=== PATIENT | female | born 1995 | race Two or more races ===

== ENCOUNTER 2023-02-08 15:02 | Outpatient (OUT) | payer BC, SELFPAY ==
--- NOTE | 2023-02-08 15:02 | PCN_ITS ---
PROCEDURE NOTE ? PROCEDURE DATE: ??02/08/2023 ? TO:? Joanne Benz, ANTIQUE REFINISHER ? PROCEDURE:? Patient presents today for a trigger point injection, right lumbar iliocostalis muscle ? PREOPERATIVE DIAGNOSIS:? Pain secondary to spasm of the right lumbar iliocostalis muscle. ? POSTOPERATIVE DIAGNOSIS:? Pain secondary to spasm of the right lumbar iliocostalis muscle. ? SOLUTION USED FOR INJECTION:? 2 mL of 2% lidocaine, 2 mL of 0.25% Marcaine and 10 mg of Kenalog, total of 5 mL, and 2 mL < > (please review 2 versus 3 mL as stated 2 here but 3 in the procedure below) used for the injection. ? IMMEDIATE COMPLICATIONS:? None. ? PROCEDURE:? After informed consent was obtained from the patient, placed in the prone position.? Skin overlying the area was prepped with alcohol.? A 25 gauge, 1 ?? needle was inserted into the substance of the right lumbar iliocostalis muscle at the L5 level.? Needle tip advanced until there was a twitch response, at which point we injected 3 mL < > (please verify as above) of solution.? No indication of intravascular or intraneural needle tip placement or injection.? Patient reports reduction in pain symptoms post procedurally.? ? MTDD
== END 2023-02-08 15:03 | disposition home or self-care (01) ==
LOC: PM 15:03
PROVIDERS: PCP Nurse Practitioner; Visit Provider Anesthesiology Pain Medicine
DX: M62.838 Other muscle spasm (principal)
CPT/HCPCS: 20552

== ENCOUNTER 2023-02-14 21:47 | Outpatient (REF) | payer BC, SELFPAY ==
[2023-02-21 17:07] LABS: Age Gdln ACOG Testing Note (.); IGP, rfx Aptima HPV ASCU Note (.)
== END 2023-02-14 21:48 | disposition home or self-care (01) ==
LOC: LAB 21:47
PROVIDERS: PCP Nurse Practitioner; Visit Provider Obstetrics & Gynecology
DX: Z01.419 Encounter for gynecological examination (general) (routine) without abnormal findings (principal)
CPT/HCPCS: G0145

== ENCOUNTER 2023-07-05 22:44 | Outpatient (OUT) | payer BC, SELFPAY ==
--- OUTSIDE RECORDS SUMMARY | 2023-07-05 22:47 | XMS_ITS | CCD ---
Author Organization [facility] Care Team Providers Care Captain Waiter Name Role Phone AICHHOLZ, SOFTWARE SALES REPRESENTATIVE JOANNE Attending Unavailable AICHHOLZ, SOFTWARE SALES REPRESENTATIVE JOANNE Consulting Unavailable AICHHOLZ, SOFTWARE SALES REPRESENTATIVE JOANNE Primary Care Unavailable AICHHOLZ, SOFTWARE SALES REPRESENTATIVE JOANNE Admitting Unavailable ANGIE, DR ANA LAURA Salgado Consulting Unavailable JOSE LUIS ., DR BLACK Admitting Unavailable AICHHOLZ, SOFTWARE SALES REPRESENTATIVE JOANNE Primary Care Unavailable JOSE LUIS ., DR BLACK Attending Unavailable JOSE LUIS ., DR BLACK Consulting Unavailable AICHHOLZ, SOFTWARE SALES REPRESENTATIVE JOANNE Primary Care Unavailable JOSE LUIS ., DR BLACK Admitting Unavailable JOSE LUIS ., DR BLACK Attending Unavailable JOSE LUIS ., DR BLACK Consulting Unavailable GIUSEPPE, DR MARCIA Rabago Admitting Unavailable WEST, DR MARCIA Rabago Attending Unavailable WEST, DR MARCIA Rabago Consulting Unavailable AICHHOLZ, SOFTWARE SALES REPRESENTATIVE JOANNE Primary Care Unavailable AICHHOLZ, SOFTWARE SALES REPRESENTATIVE JOANNE Primary Care Unavailable AICHHOLZ, SOFTWARE SALES REPRESENTATIVE JOANNE Admitting Unavailable AICHHOLZ, SOFTWARE SALES REPRESENTATIVE JOANNE Attending Unavailable AICHHOLZ, SOFTWARE SALES REPRESENTATIVE JOANNE Attending Unavailable AICHHOLZ, SOFTWARE SALES REPRESENTATIVE JOANNE Consulting Unavailable AICHHOLZ, SOFTWARE SALES REPRESENTATIVE JOANNE Primary Care Unavailable AICHHOLZ, SOFTWARE SALES REPRESENTATIVE JOANNE Admitting Unavailable ERA .DR TROY Admitting Unavailable AICHHOLZ, SOFTWARE SALES REPRESENTATIVE JOANNE Primary Care Unavailable GIRARD ., DR TROY Lopez Attending Unavailable GIRARD ., DR TROY Lopez Consulting Unavailable AICHHOLZ, SOFTWARE SALES REPRESENTATIVE JOANNE Primary Care Unavailable VILMA MORENO Consulting Unavailable ERA ., DR TROY Lopez Admitting Unavailable GIRARD ., DR TROY Lopez Attending Unavailable LAKSHMIPATHY .ALISHA Consulting [place] vailable AICHHOLZ, SOFTWARE SALES REPRESENTATIVE JOANNE Primary Care Unavailable GIRARD ., DR TROY Lopez Admitting Unavailable GIRARD ., DR TROY Lopez Attending Unavailable NENITA MAN Attending Unavailable NENITA MAN Attending Unavailable NENITA MAN Attending Unavailable NENITA MAN Attending Unavailable WAYNE AMAYA Attending Unavailable Problems Active Problems Problem Classification Problem Date Documented Da te Episodic/Chronic Spondylosis; intervertebral disc disorders; other back problems (5 sources) Spondylosis without myelopathy or radiculopathy, lumbar region; Translations: [SPONDYLS W/O MYELO-/RADICULOP LUMB] Onset: 02-05-2022 Chronic Spondylosis; intervertebral disc disorders; other back problems (5 sources) Muscle spasm of back; Translations: [MUSCLE SPASM OF BACK] Onset: 02-02-2022 Episodic Unclassified (4 sources) LOW BACK PAIN, UNSPECIFIED; Translations: [LOW BACK PAIN, UNSPECIFIED] Onset: 01-27-2022 Past or Other Problems Problem Classification Problem Date Documented Date Episodic/Chronic Cancer of cervix (4 sources) Low grade squamous intraepithelial lesion on cytologic smear of cervix (LGSIL); Translations: [LGSIL ON CYTOLOGIC SMEAR OF CERVIX] Onset: 04-26-2022 Episodic Immunizations and screening for infectious disease (1 source) Encounter for screening for human papillomavirus (HPV); Translations: [ENC SCREENING HUMAN PAPILLOMAVIRUS] Onset: 04-27-2022 Episodic Other connective tissue disease (1 source) Abnormal posture; Translations: [ABNORMAL POSTURE] Onset: 12-08-2021 Episodic Other non-traumatic joint disorders (1 source) Pain in right knee; Translations: [PAIN IN RIGHT KNEE] Onset: 12-08-2021 Episodic Other screening for suspected conditions (not mental disorders or infectious disease) (5 sources) Encounter for screening for malignant neoplasm of cervix; Translations: [ENC SCREENING MALIG NEOPLASM CERV] Onset: 10-20-2021 Episodic Unclassified (1 source) LOW BACK PAIN, UNSPECIFIED; Translations: [LOW BACK PAIN, UNSPECIFIED] Onset: 01-14-2022 Results Test Name Value Interpretation Reference Range Facility CBC AUTO DIFFon 08-02-2022 BASO # 0.1 103/ul Normal 0.0-0.1 [facility] Comment on above: Performed By: #### C BC #### [facility] [address] [address] [address] Merrick Alva Basophils/100 WBC (Bld) 0.4 % Normal 0.2-2.0 [facility] Comment on above: Performed By: #### C BC #### [facility] [address] [address] [address] Merrick Alva EO # 0.2 103/ul Normal 0.0-0.7 [facility] Comment on above: Performed By: #### C BC #### [facility] [address] [place] [address] Dr. Merrick Alva Eosinophils/100 WBC (Bld) 1.1 % Normal 0.9-7.0 [facility] Comment on above: Performed By: #### C BC #### [facility] [address] [place] [address] Dr. Merrick Alva Erythrocyte distribution width (RBC) [Ratio] 13.4 % Normal 11.0-15.0 [facility] Comment on above: Performed By: #### C BC #### [facility] [address] [place] [address] Dr. Merrick Alva Hematocrit (Bld) [Volume fraction] 38.2 % Normal 36.0-48.0 [facility] Comment on above: Performed By: #### C BC #### [facility] [address] [place] [address] Dr. Merrick Alva Hemoglobin (Bld) [Mass/Vol] 13.1 g/dL Normal 12.0-16.0 [facility] Comment on above: Performed By: #### C BC #### [facility] [address] [place] [address] Dr. Merrick Alva IG # 0.03 10e3/ul Normal 0.00-0.03 [facility] Comment on above: Performed By: #### C BC #### [facility] [address] [place] [address] Dr. Merrick Alva IG % 0.2 % Normal 0.0-0.5 [facility] Comment on above: Performed By: #### C BC #### [facility] [address] [place] [address] Dr. Merrick Alva LYMPH # 5.6 103/ul Critically high 1.2-3.8 [facility] Comment on above: Performed By: #### C BC #### [facility] [address] [place] [address] Dr. Merrick Alva Lymphocytes/100 WBC (Bld) 42.9 % Normal 20.5-60.0 [facility] Comment on above: Performed By: #### C BC #### [facility] [address] [place] [address] Dr. Merrick Alva MANUAL DIFF REQ NO Normal [facility] Comment on above: Performed By: #### C BC #### [facility] [address] [place] [address] Dr. Merrick Alva MCH (RBC) [Entitic mass] 29.6 pg Normal 26.7-34.0 [facility] Comment on above: Performed By: #### C BC #### [facility] [address] [place] [address] Dr. Merrick Alva MCHC (RBC) [Mass/Vol] 34.3 g/dL Normal 29.9-35.2 [facility] Comment on above: Performed By: #### C BC #### [facility] [address] [place] [address] Dr. Merrick Alva MCV (RBC) [Entitic vol] 86.2 fL Normal 81.0-99.0 [facility] Comment on above: Performed By: #### C BC #### [facility] [address] [place] [address] Dr. Merrick Alva MONO # 0.8 103/ul Normal 0.3-0.8 [facility] Comment on above: Performed By: #### C BC #### [facility] [address] [place] [address] Dr. Merrick Alva Monocytes/100 WBC (Bld) 6.1 % Normal 1.7-12.0 [facility] Comment on above: Performed By: #### C BC #### [facility] [address] [place] [address] Dr. Merrick Alva NEUT # 6.4 103/ul Normal 1.4-6.5 [facility] Comment on above: Performed By: #### C BC #### [facility] [address] [place] [address] Dr. Merrick Alva Neutrophils/100 WBC (Bld) 49.3 % Normal 43.0-75.0 [facility] Comment on above: Performed By: #### C BC #### [facility] [address] [place] [address] Dr. Merrick Alva Platelet mean volume (Bld) [Entitic vol] 10.3 fL Normal 9.5-13.5 [facility] Comment on above: Performed By: #### C BC #### [facility] [address] [place] [address] Dr. Merrick Alva PLT 288 103/ul Normal 150-450 [facility] Comment on above: Performed By: #### C BC #### [facility] [address] [place] [address] Dr. Merrick Alva RBC 4.43 106/ul Normal 4.20-5.40 [facility] Comment on above: Performed By: #### C BC #### [facility] [address] [place] [address] Dr. Merrick Alva WBC 13.1 103/ul Critically high 4.0-11.0 [facility] Comment on above: Performed By: #### C BC #### [facility] [address] [place] [address] Dr. Merrick Alva GLYCOHEMOGLOBIN A1Con 2022 ADA RECOMMENDATION SEE BELOW Normal [facility] Comment on above: Result Comment: ADA RECOMMENDED LIMIT 4.0 - 6.0 ADA THERAPEUTIC TARGET < 7.0 ACTION SUGGESTED > 7.0 Performed By: #### A 1C #### [facility] [address] [place] [address] Dr. Merrick Alva Glucose [Mass/Vol] 111 mg/dL Normal [facility] Comment on above: Performed By: #### A 1C #### [facility] [address] [place] [address] Dr. Merrick Alva HbA1c (Bld) [Mass fraction] 5.5 % Normal 4.5-6.2 [facility] Comment on above: Performed By: #### A 1C #### [facility] [address] [place] [address] Dr. Merrick Alva LIPID PROFILEon 08-02-2022 CHOL-HDL RATIO NORM SEE BELOW Normal [facility] Comment on above: Result Comment: 3.3 - 4.4 LOW RISK 4.4 - 7.1 AVERAGE RISK 7.1 - 11.0 MODERATE RISK >11.0 HIGH RISK Performed By: #### L IPID, TSH, CMP #### [facility] [address] [place] [address] Dr. Merrick Alva Cholesterol [Mass/Vol] 153 mg/dL Normal <=200 [facility] Comment on above: Performed By: #### L IPID, TSH, CMP #### [facility] [address] [place] [address] Dr. Merrick Alva Cholesterol in HDL [Mass/Vol] 41 mg/dL Normal 40-60 [facility] Comment on above: Performed By: #### L IPID, TSH, CMP #### [facility] [address] [place] [address] Dr. Merrick Alva Cholesterol in LDL [Mass/Vol] 92.4 mg/dL Normal [facility] Comment on above: Performed By: #### L IPID, TSH, CMP #### [facility] [address] [place] [address] Dr. Merrick Alva Cholesterol.total/Ch olesterol in HDL [Mass ratio] 3.7 {ratio} Normal [facility] Comment on above: Performed By: #### L IPID, TSH, CMP #### [facility] [address] [place] [address] Dr. Merrick Alva HDL NORMAL > or = 60 mg/dl - LO W CARDIOVASCULAR RISK <40 mg/dl - HIGH CARDIOVASCULAR RISK Normal [facility] Comment on above: Performed By: #### L IPID, TSH, CMP #### [facility] [address] [place] [address] Dr. Merrick Alva LDL CALC NORMAL SEE BELOW Normal [facility] Comment on above: Result Comment: <100 mg/dl OPTIMAL 100 - 129 mg/dl NEAR OR ABOVE OPTIMAL 130 - 159 mg/dl BORDERLINE HIGH 160 - 189 mg/dl HIGH >190 mg/dl VERY HIGH Performed By: #### L IPID, TSH, CMP #### [facility] [address] [address] [address] Merrick Alva Triglyceride [Mass/Vol] 98 mg/dL Normal <=150 [facility] Comment on above: Performed By: #### L IPID, TSH, CMP #### [facility] [address] [address] [address] Merrick Alva VLDL CALC 19.6 mg/dL Normal [facility] Comment on above: Performed By: #### L IPID, TSH, CMP #### [facility] [address] [address] [address] Merrick Alva PROF 14(COMP METB)on 023 Albumin [Mass/Vol] 3.7 g/dL Normal 3.4-5.0 [facility] Comment on above: Performed By: #### L IPID, TSH, CMP #### [facility] [address] [address] [address] Merrick Alva Albumin/Globulin [Mass ratio] 0.9 {ratio} Normal [facility] Comment on above: Performed By: #### L IPID, TSH, CMP #### [facility] [address] [place] [address] Dr. Merrick Alva ALP [Catalytic activity/Vol] 98 U/L Normal 46-116 [facility] Comment on above: Performed By: #### L IPID, TSH, CMP #### [facility] [address] [address] [address] Merrick Alva ALT [Catalytic activity/Vol] 37 U/L Normal 14-59 [facility] Comment on above: Performed By: #### L IPID, TSH, CMP #### [facility] [address] [place] [address] Dr. Merrick Alva Anion gap [Moles/Vol] 12.1 mmol/L Normal [facility] Comment on above: Performed By: #### L IPID, TSH, CMP #### [facility] [address] [place] [address] Dr. Merrick Alva AST [Catalytic activity/Vol] 22 U/L Normal 15-37 [facility] Comment on above: Performed By: #### L IPID, TSH, CMP #### [facility] [address] [place] [address] Dr. Merrick Alva Bilirubin [Mass/Vol] 0.5 mg/dL Normal 0.2-1.0 [facility] Comment on above: Performed By: #### L IPID, TSH, CMP #### [facility] [address] [address] [address] Merrick Alva Calcium [Mass/Vol] 8.9 mg/dL Normal 8.5-10.1 [facility] Comment on above: Performed By: #### L IPID, TSH, CMP #### [facility] [address] [place] [address] Dr. Merrick Alva Chloride [Moles/Vol] 105 mmol/L Normal 98-107 [facility] Comment on above: Performed By: #### L IPID, TSH, CMP #### [facility] [address] [place] [address] Dr. Merrick Alva CO2 [Moles/Vol] 27.7 mmol/L Normal 21.0-32.0 [facility] Comment on above: Performed By: #### L IPID, TSH, CMP #### [facility] [address] [place] [address] Dr. Merrick Alva Creatinine [Mass/Vol] 0.76 mg/dL Normal 0.55-1.02 [facility] Comment on above: Performed By: #### L IPID, TSH, CMP #### [facility] [address] [place] [address] Dr. Merrick Alva EGFR-AF ARGENTINE >60 Normal >=60 [facility] Comment on above: Performed By: #### L IPID, TSH, CMP #### [facility] [address] [place] [address] Dr. Merrick Alva EGFR-NON AF ARGENTINE >60 Normal >=60 [facility] Comment on above: Performed By: #### L IPID, TSH, CMP #### [facility] [address] [address] [address] Merrick Alva Globulin (S) [Mass/Vol] 4.1 g/dL Normal [facility] Comment on above: Performed By: #### L IPID, TSH, CMP #### [facility] [address] [place] [address] Dr. Merrick Alva Glucose [Mass/Vol] 87 mg/dL Normal 74-106 [facility] Comment on above: Performed By: #### L IPID, TSH, CMP #### [facility] [address] [place] [address] Dr. Merrick Alva Potassium [Moles/Vol] 3.8 mmol/L Normal 3.5-5.1 [facility] Comment on above: Performed By: #### L IPID, TSH, CMP #### [facility] [address] [place] [address] Dr. Merrick Alva Protein [Mass/Vol] 7.8 g/dL Normal 6.4-8.2 [facility] Comment on above: Performed By: #### L IPID, TSH, CMP #### [facility] [address] [place] [address] Dr. Merrick Alva Sodium [Moles/Vol] 141 mmol/L Normal 136-145 [facility] Comment on above: Performed By: #### L IPID, TSH, CMP #### [facility] [address] [place] [address] Dr. Merrick Alva Urea nitrogen [Mass/Vol] 11.0 mg/dL Normal 7.0-18.0 [facility] Comment on above: Performed By: #### L IPID, TSH, CMP #### [facility] [address] [place] [address] Dr. Merrick Alva Urea nitrogen/Creatinine [Mass ratio] 14.5 mg/mg Normal [facility] Comment on above: Performed By: #### L IPID, TSH, CMP #### [facility] [address] [place] [address] Dr. Merrick Alva TSHon 08-02-2022 TSH 1.453 uIU/mL Normal 0.358-3.740 [facility] Comment on above: Performed By: #### L IPID, TSH, CMP #### [facility] [address] [place], [place] [address] Dr. Merrick Alva Pap IG, rfx Aptima HPV, rfx 16/18,45on 05-04-2022 . . Normal [facility] Comment on above: Result Comment: Perf ormed at: WB Performed By: #### P APHR2A ####[facility] [id number] [id number] Alva DIAGNOSIS: Comment Abnormal [facility] Comment on above: Result Comment: EPIT HELIAL CELL ABNORMALITY. ATYPICAL SQUAMOUS CELLS OF UNDETERMINED SIGNIFICANCE (ASC-US). PREDOMINANCE OF COCCOBACILLI CONSISTENT WITH SHIFT IN VAGINAL POLLY IS PRESENT. Performed at: WB Performed By: #### P APHR2A ####[facility] [address] [address]DrAna Alva Electronically signed by: Comment Normal [facility] Comment on above: Result Comment: Jammie Wahl MD, Pathologist Performed at: WB Performed By: #### P APHR2A ####[facility] [address] [id number] Alva HPV Aptima Negative Normal Negative [facility] Comment on above: Result Comment: This nucleic acid amplification test detects fourteen high-risk HPV types (16,18,31,33,35,39,45,51,52,56,58,59,66,68) without differentiation. Performed at: =G Performed By: #### P APHR2A ####[facility] [address] [id number] Alva HPV Genotype Reflex Comment Normal [facility] Comment on above: Result Comment: Crit eria not met, HPV Genotype not performed. Performed at: WB Performed By: #### P APHR2A ####[facility] [address] [id number] Alva Methodology: Comment Normal [facility] Comment on above: Result Comment: This liquid based ThinPrep(R) pap test was screened with the use of an image guided system. Performed at: WB Performed By: #### P APHR2A ####[facility] [address] [address]Dr. Merrick Alva Note: Comment Normal [facility] Comment on above: Result Comment: The Pap smear is a screening test designed to aid in the detection of premalignant and malignant conditions of the uterine cervix. It is not a diagnostic procedure and should not be used as the sole means of detecting cervical cancer. Both false-positive and false-negative reports do occur. . Performed at: WB Performed By: #### P APHR2A ####[facility] [address] [address]Dr. Merrick Alva Pathologist Provided ICD10 Comment [facility] Comment on above: Result Comment: R87. 610, R87.5 Performed at: WB Performed By: #### P APHR2A ####[facility] [address] [place], [place] [address]Dr. Merrick Alva Performed by: Comment Normal [facility] Comment on above: Result Comment: Jay Jay Flores, Service Provider (ASCP) Performed at: WB Performed By: #### P APHR2A ####[facility] [address] [place], [place] [address]Dr. Merrick Alva Recommendation: Comment Abnormal [facility] Comment on above: Result Comment: Sugg est follow up as clinically appropriate. Performed at: WB Performed By: #### P APHR2A ####[facility] [address] [place], [place] [address]DrAna Alva Specimen adequacy: Comment Normal [facility] Comment on above: Result Comment: Sati sfactory for evaluation. Endocervical and/or squamous metaplastic cells (endocervical component) are present. Performed at: WB Performed By: #### P APHR2A ####[facility] [address] [place], [place] [address]Dr. Merrick Alva XR LSPINE 2_3 VIEWSon 2021 XR LSPINE 2_3 VIEWS EXAMINATION: XR LSPINE 2_3 VIEWS HISTORY: Low back pain ; chronic low back pain radiating to right leg COMPARISON: No relevant comparison available. FINDINGS: BONES: No significant spondylosis, scoliosis, fracture, or visible bony lesion. DISC SPACES: No significant disc height narrowing, subluxation, or endplate abnormality. PARASPINOUS: Negative. No paraspinous abnormality is seen. OTHER: Negative. IMPRESSION: 1. Normal examination. Electronically authenticated by: ANA LAURA ADAMS Date: 2022-01-14 07:25 Normal [facility] PAP ACOG PANEL 2: 19 to 27on 10-26-2021 . . Normal [facility] Comment on above: Performed By: #### [id number] #### [facility] [address] [address] [address] Merrick Alva Age Gdln ACOG Testing - Normal [facility] Comment on above: Performed By: #### [id number] #### [facility] [address] [place] [address] Dr. Merrick Alva DIAGNOSIS: Comment Abnormal [facility] Comment on above: Result Comment: EPIT HELIAL CELL ABNORMALITY. LOW GRADE SQUAMOUS INTRAEPITHELIAL LESION (LSIL). Performed By: #### [id number] #### [facility] [address] [address] [address] Merrick Alva Electronically signed by: Comment Normal [facility] Comment on above: Result Comment: Shira Blandon MD, Pathologist Performed By: #### [id number] #### [facility] [address] [place] [address] Dr. Merrick Alva Methodology: Comment Normal [facility] Comment on above: Result Comment: This liquid based ThinPrep(R) pap test was screened with the use of an image guided system. Performed By: #### 4 [id number] #### [facility] [address] [address] [address] Merrick Alva Note: Comment Normal [facility] Comment on above: Result Comment: The Pap smear is a screening test designed to aid in the detection of premalignant and malignant conditions of the uterine cervix. It is not a diagnostic procedure and should not be used as the sole means of detecting cervical cancer. Both false-positive and false-negative reports do occur. . Performed By: #### [id number] #### [facility] [address] [address] [address] Merrick Alva Pathologist Provided ICD10 Comment Normal [facility] Comment on above: Result Comment: R87. 612 Performed By: #### [id number] #### [facility] [address] [address] [address] Merrick Alva Performed by: Comment Normal [facility] Comment on above: Result Comment: Alma Oden, Service Provider (ASCP) Performed By: #### [id number] #### [facility] [address] [address] [address] Merrick Alva Reflex Criteria: Comment Normal [facility] Comment on above: Result Comment: The HPV DNA reflex criteria were not met with this specimen result therefore, no HPV testing was performed. . Performed By: #### 4 [id number] #### [facility] [address] [place] [address] Dr. Merrick Alva Specimen adequacy: Comment Normal [facility] Comment on above: Result Comment: Sati sfactory for evaluation. Endocervical and/or squamous metaplastic cells (endocervical component) are present. Performed By: #### [id number] #### [facility] [address] [address] [address] Merrick Alva RUBELLAon 03-28-2018 RUBELLA 1.85 Normal [facility] Comment on above: Result Comment: NORM AL RANGES: < OR = 0.9O NEGATIVE ; NO DETECTABLE IgG ANTIBODY TO RUBELLA 0.91 - 1.09 EQUIVOCAL; REPEAT TESTING SUGGESTED > OR = 1.10 POSITIVE ; INDICATES PRESENCE OF DETECTABLE IgG ANTIBODY TO RUBELLA VIRUS Performed By: #### 1 [id number] #### [facility] [address] TB QUANTIFERON PLUSon 2018 MITOGEN MINUS NIL >10.00 Normal [facility] Comment on above: Performed By: #### 3 [id number] #### [facility] [address] [place] [address], [facility] NIL 0.14 IU/mL Normal [facility] Comment on above: Performed By: #### 3 [id number] #### [facility] [address] [facility] [place] [address], [facility] TB QUANTIFERON Negative Normal NEGATIVE [facility] Comment on above: Result Comment: [place]rbano tiferon TB Gold Interpretation (IU/mL): NEGATIVE: M. tuberculosis infection not likely. Nil: <=8.0 TB1 Antigen minus Nil (YK2OU-SJF): <0.35 OR >=0.35; and <25% of Nil value. TB2 Antigen minus Nil (SP7KL-YXE): <0.35 OR >=0.35; and <25% of Nil value. Mitogen minus Nil (CAITLYN-NIL): >=0.50 NOTE: Diagnosing or excluding tuberculosis disease, and assessing the probability of LTBI, requires a combination of epidemiological, historical, medical, and diagnostic findings that should be taken into account when interpreting QuantiFERON (TM)-TB Gold results. See general guidance on the diagnosis and treatment of TB disease and LTBI (https://www.cdc.gov/tb/publications/guidlines/default.htm Performed By: #### 3 [id number] #### [facility] [address] [facility] [place] [address], [facility] TB1 AG 0.13 IU/mL Normal [facility] Comment on above: Performed By: #### 3 [id number] #### [facility] [address] [place] [address], [facility] TB1 AG MINUS NIL -0.01 IU/mL Normal [facility] Comment on above: Performed By: #### 3 [id number] #### [facility] [address] [facility] [place] [address], [place] TB2 AG 0.19 IU/mL Normal [facility] Comment on above: Performed By: #### 3 [id number] #### [facility] [address] [place] [address], [place] TB2 AG MINUS NIL 0.05 IU/mL Normal [facility] Comment on above: Performed By: #### 3 [id number] #### [facility] [address] [place] [address], [facility] Encounters Encounter Date Encounter Type Care Provider Facility Start: 06-28-2023 End: 06-28-2023 ambulatory NENITA MAGDA Not Available Start: 05-26-2023 End: 05-26-2023 ambulatory NENITA MAGDA Not Available Start: 04-13-2023 End: 04-13-2023 ambulatory NENITA MAGDA Not Available Start: 03-15-2023 End: 03-15-2023 ambulatory NENITA MAGDA Not Available Start: 02-14-2023 End: 02-14-2023 ambulatory WAYNE AMAYA Not Available Start: 08-02-2022 End: 08-03-2022 ambulatory LISBETH BENZ Facility:[facility] Start: 07-12-2022 End: 07-13-[address] MARCIA CHIN Facility:[facility] Start: 05-18-2022 End: 05-19-2022 ambulatory SOFTWARE SALES REPRESENTATIVE JOANNEGerald BENZ Facility:[facility] Start: 04-26-2022 End: 04-26-2022 ambulatory SOFTWARE SALES REPRESENTATIVE JOANNE JOSÉ Facility:[facility] Start: 03-09-2022 ambulatory LISBETH BENZ Facil ity:[facility] Start: 02-02-2022 End: 02-03-[address] TROY GIRARD . Facility:[facility] Start: 01-14-2022 End: 01-15-2022 ambulatory LISBETH LANEA JOSÉ Facility:[facility] Start: 12-07-2021 End: 12-22-2021 ambulatory SOFTWARE SALES REPRESENTATIVE JOANNE JOSÉ Facility:[facility] Start: 10-20-2021 End: 10-20-[address] WAYNE AMAYA . Facility:[facility] Payers Date Payer Category Payer Unknown [id number] 2019 Unknown 1993 Unknown [id number] 2.16.84 [id number] 1993 Unknown [id number] 2.16.84 [id number] 1993 Unknown [id number] 2.16.84 0.1.455959.3.579.2.593 1993 Unknown [id number] 2.16.84 0.1.116281.3.579.2.593 1993 Unknown [id number] 2.16.84 0.1.669872.3.579.2.593 1993 Unknown [id number] 2.16.84 0.1.496655.3.579.2.593 1993 Unknown [id number] 2.16.84 0.1.811917.3.579.2.593 1993 Unknown [id number] 2.16.84 0.1.746063.3.579.2.593 1993 Unknown [id number] 2.16.84 0.1.564894.3.579.2.1259 1993 Unknown [id number] 2.16.84 0.1.457586.3.579.2.1259 1993 Unknown [id number] 2.16.84 0.1.689999.3.579.2.1259 1993 Unknown [id number] 2.16.840 .1.480579.3.579.2.1259 1993 Unknown [id number] 2.16.840 .1.262785.3.579.2.1259 1959 Self-pay [id number] 1959 Unknown [id number] 1959 Unknown [id number] 1959 Unknown [id number] Unknown [id number] 2.16.84 0.1.296037.3.579.2.593 Consultation note 05-18-2022 Note Date & Type Note Facility 05-18-2022 Note CONSULTATION PROCEDURE DATE: 05/18/2022 PROCEDURE: Left lumbar iliocostalis trigger point injection. PREOPERATIVE DIAGNOSIS: Pain secondary to lumbar spondylosis, complicated by myofascial spasm along the lumbar iliocostalis. POSTOPERATIVE DIAGNOSIS: Pain secondary to lumbar spondylosis, complicated by myofascial spasm along the lumbar iliocostalis. SOLUTION USED FOR INJECTION: 2 mL of 2% lidocaine, 2 mL of 0.25% Marcaine and Kenalog 10 mg, total of 5 mL and 2 mL were used for injection at the site. IMMEDIATE COMPLICATIONS: None. PROCEDURE: After informed consent was obtained from the patient, placed in the prone position. The skin overlying the area was prepped with alcohol. A 25 gauge, 1.5 needle was inserted and directed towards the belly of the left lumbar iliocostalis muscle and approximately 3 cm from the midline, at the level of the L4 spinous process. After encountering the belly of the muscle and having a positive twitch response, no indication of intravascular or intraneural needle tip placement. 2 mL of solution was injected. Post-op, needle was removed and reports reduction of pain symptoms. She was discharged home after meeting criteria, and she is to follow up with our office by telephone in one week's time. [facility] Consultation note 02-02-2022 Note Date & Type Note Facility 02-02-2022 Note CONSULTATION CONSULTATION DATE: 02/02/2022 CHIEF COMPLAINT: Chronic low back pain. HISTORY OF PRESENT ILLNESS: This is a very pleasant, 26-year-old female who was referred to us by Joanne Benz. The patient was lifting and exercising approximately a year ago, when she hurt her low back, on the right hand side especially. The patient describes the pain along her right hip and the posterior aspect of her thigh. She rates the pain as 2/10, a sharp pain. Twisting, standing too long, walking too long aggravate the patient's pain. Sitting too long aggravates the pain. Stretching mitigates the patient's pain. The patient has attended chiropractic treatment; one every three months, the last one being in the spring. The patient has also attended physical therapy for the last month. The patient takes tizanidine 4 mg on a p.r.n. basis. She has been instructed to decrease the dosage on this. She takes [id number] NSAIDs along with naproxen 500 mg on a p.r.n. basis. The patient's PAST MEDICAL HISTORY / SURGICAL HISTORY / REVIEW OF SYSTEMS are noted on the chart, along with the MEDICATION LIST / ALLERGIES and an X-RAY of the lumbar spine which was reviewed in the office today with the patient. PHYSICAL EXAM: Upon physical examination, this is a pleasant, cooperative female, who does not appear to be in any acute distress. VITAL SIGNS: Stable at 105/70 with a heart rate of 74. At a height of 5', the patient weighs 76 kg. HEAD: Atraumatic. NECK: Non-guarded. HEART: No orthopnea. LUNGS: No shortness of breath. ABDOMEN: Soft, non-distended. BACK: Well maintained lumbar lordosis. Extension, compression, direct palpation along the L4-5, L5-S1 facet aggravate and reproduce the patient's pain symptomatology concordant with facet arthropathy, lumbar spondylosis. On the x-rays, we can also see early inflammatory changes on the left hand side. The patient does have some lumbar spasming. EXTREMITIES: No pedal edema. MUSCULOSKELETAL: Intact at 5/5. NEUROLOGICALLY: The patient is intact. PSYCHIATRICALLY: Affect is appropriate. DIAGNOSIS: Current diagnosis is low back pain, lumbar spasm, lumbar spondylosis, early degenerative facet changes noted. PLAN: Education was done with regards to the patient's pain. Heat rub to the low back, inversion table. The patient will receive trigger point in her lumbar spine today along the right hand side. The patient understands and would like to proceed. [facility] Consultation note 02-02-2022 Note Date & Type Note Facility 02-02-2022 Note CONSULTATION PROCEDURE DATE: 02/02/2022 PREOPERATIVE DIAGNOSIS: Lumbar paravertebral spasm. POSTOPERATIVE DIAGNOSIS: Lumbar paravertebral spasm. PROCEDURE: Lumbar trigger point injection x2. Subsequent to obtaining informed consent, the patient was placed in the prone position. Alcohol prep was used to sterilize the site. A 25 gauge needle was advanced and it comes to rest on the right hand side along the trigger zones. Negative aspiration. Marcaine 0.125% along with Kenalog 10 mg x2 is injected to each site; a total volume of 1.5 cc. Negative heme. The patient tolerates the procedure well without any overt complication, will be followed up in the office. [facility] Summary Purpose Family History No Family History Records FoundNo Family History Records FoundNo Family History Records Found Advance Directives No Advanced Directives Records FoundNo Advanced Directives Records FoundNo Advanced Directives Records Found Additional Source Comments INFORMATION SOURCE (unrecogn ized section and content) DATE CREATED AUTHOR 12/24/2018 [facility] DATE CREATED AUTHOR AUTHOR'S ORGANIZ ATION 08/03/2022 [facility] DATE CREATED AUTHOR AUTHOR'S ORGANIZ ATION 06/29/2023 [facility] FOR RECORDS PERTAINING TO PATIENTS WHO ARE OR HAVE BEEN ENROLLED IN A CHEMICAL DEPENDENCY/SUBSTANCEABUSE PROGRAM, SOME INFORMATION MAY BE OMITTED. This clinical summary was aggregated from multiple sources. Caution should be exercised in using it in the provision of clinical care. This summary normalizes information from multiple sources, and as a consequence, information in this document may materially change the coding, format and clinical context of patient data. In addition, data may be omitted in some cases. CLINICAL DECISIONS SHOULD BE BASED ON THE PRIMARY CLINICAL RECORDS. [facility] [employer] provides no warranty or guarantee of the accuracy or completeness of information in this document.
[2023-07-05 23:44] LABS: HCG Quantitative 16610 mIU/mL
== END 2023-07-05 22:45 | disposition home or self-care (01) ==
LOC: LAB 22:44
PROVIDERS: PCP Obstetrics & Gynecology; Visit Provider Obstetrics & Gynecology
DX: N92.6 Irregular menstruation, unspecified (principal)
CPT/HCPCS: 36415; 84702

== ENCOUNTER 2023-07-08 06:05 | Outpatient (OUT) | payer BC, SELFPAY ==
--- OUTSIDE RECORDS SUMMARY | 2023-07-08 06:08 | XMS_ITS | CCD ---
Author Organization [facility] Care Team Providers Care Jig And Fixture Builder Name Role Phone AICHHOLZ, ENGRAVER LETTERING JOANNE Attending Unavailable AICHHOLZ, ENGRAVER LETTERING JOANNE Consulting Unavailable AICHHOLZ, ENGRAVER LETTERING JOANNE Primary Care Unavailable AICHHOLZ, ENGRAVER LETTERING JOANNE Admitting Unavailable ANGIE, DR ANA LAURA Salgado Consulting Unavailable JOSE LUIS ., DR BLACK Admitting Unavailable AICHHOLZ, ENGRAVER LETTERING JOANNE Primary Care Unavailable JOSE LUIS ., DR BLACK Attending Unavailable JOSE LUIS ., DR BLACK Consulting Unavailable AICHHOLZ, ENGRAVER LETTERING JOANNE Primary Care Unavailable JOSE LUIS ., DR BLACK Admitting Unavailable JOSE LUIS ., DR BLACK Attending Unavailable JOSE LUIS ., DR BLACK Consulting Unavailable GIUSEPPE, DR MARCIA Rabago Admitting Unavailable WEST, DR MARCIA Rabago Attending Unavailable WEST, DR MARCIA Rabago Consulting Unavailable AICHHOLZ, ENGRAVER LETTERING JOANNE Primary Care Unavailable AICHHOLZ, ENGRAVER LETTERING JOANNE Primary Care Unavailable AICHHOLZ, ENGRAVER LETTERING JOANNE Admitting Unavailable AICHHOLZ, ENGRAVER LETTERING JOANNE Attending Unavailable AICHHOLZ, ENGRAVER LETTERING JOANNE Attending Unavailable AICHHOLZ, ENGRAVER LETTERING JOANNE Consulting Unavailable AICHHOLZ, ENGRAVER LETTERING JOANNE Primary Care Unavailable AICHHOLZ, ENGRAVER LETTERING JOANNE Admitting Unavailable ERA .DR TROY Admitting Unavailable AICHHOLZ, ENGRAVER LETTERING JOANNE Primary Care Unavailable GIRARD ., DR TROY Lopez Attending Unavailable GIRARD ., DR TROY Lopez Consulting Unavailable AICHHOLZ, ENGRAVER LETTERING JOANNE Primary Care Unavailable VILMA MORENO Consulting Unavailable ERA ., DR TROY Lopez Admitting Unavailable GIRARD ., DR TROY Lopez Attending Unavailable LAKSHMIPATHY .ALISHA Consulting Naima vailable AICHHOLZ, ENGRAVER LETTERING JOANNE Primary Care Unavailable GIRARD ., DR [...] 08-02-2022 BASO # 0.1 103/ul Normal 0.0-0.1 [facility] Comment on above: Performed By: #### C BC #### [facility] [address] [address] [address] Merrick Alva Basophils/100 WBC (Bld) 0.4 % Normal 0.2-2.0 [facility] Comment on above: Performed By: #### C BC #### [facility] [address] [address] [address] Merrick Alva EO # 0.2 103/ul Normal 0.0-0.7 The [facility] Comment on above: Performed By: #### C BC #### [facility] [address] [place] [address] Dr. Merrick Alva Eosinophils/100 WBC (Bld) 1.1 % Normal 0.9-7.0 [facility] Comment on above: Performed By: #### C BC #### [facility] [address] [place] [address] Dr. Merrick Alva Erythrocyte distribution width (RBC) [Ratio] 13.4 % Normal 11.0-15.0 [facility] Comment on above: Performed By: #### C BC #### [facility] [address] [place] [address] Dr. Merrick Alva Hematocrit (Bld) [Volume fraction] 38.2 % Normal 36.0-48.0 [facility] Comment on above: Performed By: #### C BC #### [facility] [address] [place] [address] Dr. Merrick Alva Hemoglobin (Bld) [Mass/Vol] 13.1 g/dL Normal 12.0-16.0 [facility] Comment on above: Performed By: #### C BC #### [facility] [address] [place] [address] Dr. Merrick Alva IG # 0.03 10e3/ul Normal 0.00-0.03 [facility] Comment on above: Performed By: #### C BC #### [facility] [address] [place] [address] Dr. Merrick Alva IG % 0.2 % Normal 0.0-0.5 The [facility] Comment on above: Performed By: #### C BC #### [facility] [address] [place] [address] Dr. Merrick Alva LYMPH # 5.6 103/ul Critically high 1.2-3.8 The [facility] Comment on above: Performed By: #### C BC #### [facility] [address] [place] [address] Dr. Merrick Alva Lymphocytes/100 WBC (Bld) 42.9 % Normal 20.5-60.0 The [facility] Comment on above: Performed By: #### C BC #### [facility] [address] [place] [address] Dr. Merrick Alva MANUAL DIFF REQ NO Normal The [facility] Comment on above: Performed By: #### C BC #### [facility] [address] [place] [address] Dr. Merrick Alva MCH (RBC) [Entitic mass] 29.6 pg Normal 26.7-34.0 The [facility] Comment on above: Performed By: #### C BC #### [facility] [address] [place] [address] Dr. Merrick Alva MCHC (RBC) [Mass/Vol] 34.3 g/dL Normal 29.9-35.2 The [facility] Comment on above: Performed By: #### C BC #### [facility] [address] [place] [address] Dr. Merrick Alva MCV (RBC) [Entitic vol] 86.2 fL Normal 81.0-99.0 The [facility] Comment on above: Performed By: #### C BC #### [facility] [address] [place] [address] Dr. Merrick Alva MONO # 0.8 103/ul Normal 0.3-0.8 The [facility] Comment on above: Performed By: #### C BC #### [facility] [address] [place] [address] Dr. Merrick Alva Monocytes/100 WBC (Bld) 6.1 % Normal 1.7-12.0 The [facility] Comment on above: Performed By: #### C BC #### [facility] [address] [place] [address] Dr. Merrick Alva NEUT # 6.4 103/ul Normal 1.4-6.5 The [facility] Comment on above: Performed By: #### C BC #### [facility] [address] [place] [address] Dr. Merrick Alva Neutrophils/100 WBC (Bld) 49.3 % Normal 43.0-75.0 [facility] Comment on above: Performed By: #### C BC #### [facility] [address] [place] [address] Dr. Merrick Alva Platelet mean volume (Bld) [Entitic vol] 10.3 fL Normal 9.5-13.5 [facility] Comment on above: Performed By: #### C BC #### [facility] [address] [place] [address] Dr. Merrick Alva PLT 288 103/ul Normal 150-450 The [facility] Comment on above: Performed By: #### C BC #### [facility] [address] [place] [address] Dr. Merrick Alva RBC 4.43 106/ul Normal 4.20-5.40 [facility] Comment on above: Performed By: #### C BC #### [facility] [address] [place] [address] Dr. Merrick Alva WBC 13.1 103/ul Critically high 4.0-11.0 [facility] Comment on above: Performed By: #### C BC #### [facility] [address] [place] [address] Dr. Merrick Alva GLYCOHEMOGLOBIN A1Con 2022 ADA RECOMMENDATION SEE BELOW Normal [facility] Comment on above: Result Comment: ADA RECOMMENDED LIMIT 4.0 - 6.0 ADA THERAPEUTIC TARGET < 7.0 ACTION SUGGESTED > 7.0 Performed By: #### A 1C #### [facility] [address] [place] [address] Dr. Merrick Alva Glucose [Mass/Vol] 111 mg/dL Normal The [facility] Comment on above: Performed By: #### A 1C #### [facility] [address] [place] [address] Dr. Merrick Alva HbA1c (Bld) [Mass fraction] 5.5 % Normal 4.5-6.2 [facility] Comment on above: Performed By: #### A 1C #### [facility] [address] [place] [address] Dr. Merrick Alva LIPID PROFILEon 08-02-2022 CHOL-HDL RATIO NORM SEE BELOW Normal [facility] Comment on above: Result Comment: 3.3 - 4.4 LOW RISK 4.4 - 7.1 AVERAGE RISK 7.1 - 11.0 MODERATE RISK >11.0 HIGH RISK Performed By: #### L IPID, TSH, CMP #### [facility] [address] [place] [address] Dr. Merrick Alva Cholesterol [Mass/Vol] 153 mg/dL Normal <=200 [facility] Comment on above: Performed By: #### L IPID, TSH, CMP #### [facility] [address] [place] [address] Dr. Merrick Alva Cholesterol in HDL [Mass/Vol] 41 mg/dL Normal 40-60 [facility] Comment on above: Performed By: #### L IPID, TSH, CMP #### [facility] [address] [place] [address] Dr. Merrick Alva Cholesterol in LDL [Mass/Vol] 92.4 mg/dL Normal [facility] Comment on above: Performed By: #### L IPID, TSH, CMP #### [facility] [address] [place] [address] Dr. Merrick Alva Cholesterol.total/Ch olesterol in HDL [Mass ratio] 3.7 {ratio} Normal [facility] Comment on above: Performed By: #### L IPID, TSH, CMP #### [facility] [address] [place] [address] Dr. Merrick Alva HDL NORMAL > or = 60 mg/dl - LO W CARDIOVASCULAR RISK <40 mg/dl - HIGH CARDIOVASCULAR RISK Normal [facility] Comment on above: Performed By: #### L IPID, TSH, CMP #### [facility] [address] [place] [address] Dr. Merrick Alva LDL CALC NORMAL SEE BELOW Normal [facility] Comment on above: Result Comment: <100 mg/dl OPTIMAL 100 - 129 mg/dl NEAR OR ABOVE OPTIMAL 130 - 159 mg/dl BORDERLINE HIGH 160 - 189 mg/dl HIGH >190 mg/dl VERY HIGH Performed By: #### L IPID, TSH, CMP #### [facility] [address] [address] [address] Merrick Alva Triglyceride [Mass/Vol] 98 mg/dL Normal <=150 [facility] Comment on above: Performed By: #### L IPID, TSH, CMP #### [facility] [address] [address] [address] Merrick Alva VLDL CALC 19.6 mg/dL Normal [facility] Comment on above: Performed By: #### L IPID, TSH, CMP #### [facility] [address] [address] [address] Merrick Alva PROF 14(COMP METB)on 023 Albumin [Mass/Vol] 3.7 g/dL Normal 3.4-5.0 [facility] Comment on above: Performed By: #### L IPID, TSH, CMP #### [facility] [address] [address] [address] Merrick Alva Albumin/Globulin [Mass ratio] 0.9 {ratio} Normal [facility] Comment on above: Performed By: #### L IPID, TSH, CMP #### [facility] [address] [place] [address] Dr. Merrick Alva ALP [Catalytic activity/Vol] 98 U/L Normal 46-116 [facility] Comment on above: Performed By: #### L IPID, TSH, CMP #### [facility] [address] [address] [address] Merrick Alva ALT [Catalytic activity/Vol] 37 U/L Normal 14-59 [facility] Comment on above: Performed By: #### L IPID, TSH, CMP #### [facility] [address] [place] [address] Dr. Merrick Alva Anion gap [Moles/Vol] 12.1 mmol/L Normal [facility] Comment on above: Performed By: #### L IPID, TSH, CMP #### [facility] [address] [place] [address] Dr. Merrick Alva AST [Catalytic activity/Vol] 22 U/L Normal 15-37 [facility] Comment on above: Performed By: #### L IPID, TSH, CMP #### [facility] [address] [place] [address] Dr. Merrick Alva Bilirubin [Mass/Vol] 0.5 mg/dL Normal 0.2-1.0 [facility] Comment on above: Performed By: #### L IPID, TSH, CMP #### [facility] [address] [address] [address] Merrick Alva Calcium [Mass/Vol] 8.9 mg/dL Normal 8.5-10.1 [facility] Comment on above: Performed By: #### L IPID, TSH, CMP #### [facility] [address] [place] [address] Dr. Merrick Alva Chloride [Moles/Vol] 105 mmol/L Normal 98-107 [facility] Comment on above: Performed By: #### L IPID, TSH, CMP #### [facility] [address] [place] [address] Dr. Merrick Alva CO2 [Moles/Vol] 27.7 mmol/L Normal 21.0-32.0 [facility] Comment on above: Performed By: #### L IPID, TSH, CMP #### [facility] [address] [place] [address] Dr. Merrick Alva Creatinine [Mass/Vol] 0.76 mg/dL Normal 0.55-1.02 [facility] Comment on above: Performed By: #### L IPID, TSH, CMP #### [facility] [address] [place] [address] Dr. Merrick Alva EGFR-AF PUERTO RICAN >60 Normal >=60 The [facility] Comment on above: Performed By: #### L IPID, TSH, CMP #### [facility] [address] [place] [address] Dr. Merrick Alva EGFR-NON AF PUERTO RICAN >60 Normal >=60 [facility] Comment on above: Performed By: #### L IPID, TSH, CMP #### [facility] [address] [address] [address] Merrick Alva Globulin (S) [Mass/Vol] 4.1 g/dL Normal [facility] Comment on above: Performed By: #### L IPID, TSH, CMP #### [facility] [address] [place] [address] Dr. Merrick Alva Glucose [Mass/Vol] 87 mg/dL Normal 74-106 [facility] Comment on above: Performed By: #### L IPID, TSH, CMP #### [facility] [address] [place] [address] Dr. Merrick Alva Potassium [Moles/Vol] 3.8 mmol/L Normal 3.5-5.1 The [facility] Comment on above: Performed By: #### L IPID, TSH, CMP #### [facility] [address] [place] [address] Dr. Merrick Alva Protein [Mass/Vol] 7.8 g/dL Normal 6.4-8.2 The [facility] Comment on above: Performed By: #### L IPID, TSH, CMP #### [facility] [address] [place] [address] Dr. Merrick Alva Sodium [Moles/Vol] 141 mmol/L Normal 136-145 [facility] Comment on above: Performed By: #### L IPID, TSH, CMP #### [facility] [address] [place] [address] Dr. Merrick Alva Urea nitrogen [Mass/Vol] 11.0 mg/dL Normal 7.0-18.0 [facility] Comment on above: Performed By: #### L IPID, TSH, CMP #### [facility] [address] [place] [address] Dr. Merrick Alva Urea nitrogen/Creatinine [Mass ratio] 14.5 mg/mg Normal [facility] Comment on above: Performed By: #### L IPID, TSH, CMP #### [facility] [address] [place] [address] Dr. Merrick Alva TSHon 08-02-2022 TSH 1.453 uIU/mL Normal 0.358-3.740 The [facility] Comment on above: Performed By: #### L IPID, TSH, CMP #### [facility] [address] [place], [place] [address] Dr. Merrick Alva Pap IG, rfx Aptima HPV, rfx 16/18,45on 05-04-2022 . . Normal [facility] Comment on above: Result Comment: Perf ormed at: WB Performed By: #### P APHR2A ####[facility] [address] [id number] Alva DIAGNOSIS: Comment Abnormal [facility] Comment on above: Result Comment: EPIT HELIAL CELL ABNORMALITY. ATYPICAL SQUAMOUS CELLS OF UNDETERMINED SIGNIFICANCE (ASC-US). PREDOMINANCE OF COCCOBACILLI CONSISTENT WITH SHIFT IN VAGINAL POLLY IS PRESENT. Performed at: WB Performed By: #### P APHR2A ####[facility] [address] [address]DrAna Alva Electronically signed by: Comment Normal [facility] Comment on above: Result Comment: Jammie Wahl MD, Pathologist Performed at: WB Performed By: #### P APHR2A ####[facility] [address] [id number] Alva HPV Aptima Negative Normal Negative [facility] Comment on above: Result Comment: This nucleic acid amplification test detects fourteen high-risk HPV types (16,18,31,33,35,39,45,51,52,56,58,59,66,68) without differentiation. Performed at: =G Performed By: #### P APHR2A ####[facility] [address] [id number] Alva HPV Genotype Reflex Comment Normal [facility] Comment on above: Result Comment: Crit eria not met, HPV Genotype not performed. Performed at: WB Performed By: #### P APHR2A ####[facility] [address] [id number] Alva Methodology: Comment Normal [facility] Comment on above: Result Comment: This liquid based ThinPrep(R) pap test was screened with the use of an image guided system. Performed at: WB Performed By: #### P APHR2A ####[facility] [address] [address]Dr. Merrick Alva Note: Comment Normal [facility] Comment on above: Result Comment: The Pap smear is a screening test designed to aid in the detection of premalignant and malignant conditions of the uterine cervix. It is not a diagnostic procedure and should not be used as the sole means of detecting cervical cancer. Both false-positive and false-negative reports do occur. . Performed at: WB Performed By: #### P APHR2A ####[facility] [address] [address]Dr. Merrick Alva Pathologist Provided ICD10 Comment [facility] Comment on above: Result Comment: R87. 610, R87.5 Performed at: WB Performed By: #### P APHR2A ####[facility] [address] [place], [place] [address]Dr. Merrick Alva Performed by: Comment Normal [facility] Comment on above: Result Comment: Jay Jay Flores, Lead Application Architect (ASCP) Performed at: WB Performed By: #### P APHR2A ####[facility] [address] [place], [place] [address]Dr. Merrick Alva Recommendation: Comment Abnormal [facility] Comment on above: Result Comment: Sugg est follow up as clinically appropriate. Performed at: WB Performed By: #### P APHR2A ####[facility] [address] [place], [place] [address]DrAna Alva Specimen adequacy: Comment Normal [facility] Comment on above: Result Comment: Sati sfactory for evaluation. Endocervical and/or squamous metaplastic cells (endocervical component) are present. Performed at: WB Performed By: #### P APHR2A ####[facility] [address] [place], [place] [address]Dr. Merrick Alva XR LSPINE 2_3 VIEWSon 2021 [...] ANA LAURA ADAMS Date: 2022-01-14 07:25 Normal [facility] PAP ACOG PANEL 2: 19 to 27on 10-26-2021 . . Normal [facility] Comment on above: Performed By: #### 4 [id number] #### [facility] [address] [address] [address] Merrick Alva Age Gdln ACOG Testing - Normal [facility] Comment on above: Performed By: #### 4 [id number] #### [facility] [address] [place] [address] Dr. Merrick Alva DIAGNOSIS: Comment Abnormal [facility] Comment on above: Result Comment: EPIT HELIAL CELL ABNORMALITY. LOW GRADE SQUAMOUS INTRAEPITHELIAL LESION (LSIL). Performed By: #### 4 [id number] #### [facility] [address] [address] [address] Merrick Alva Electronically signed by: Comment Normal [facility] Comment on above: Result Comment: Shira Blandon MD, Pathologist Performed By: #### 4 [id number] #### [facility] [address] [place] [address] Dr. Merrick Alva Methodology: Comment Normal [facility] Comment on above: Result Comment: This liquid based ThinPrep(R) pap test was screened with the use of an image guided system. Performed By: #### 4 [id number] #### [facility] [address] [address] [address] Merrick Alva Note: Comment Normal [facility] Comment on above: Result Comment: The Pap smear is a screening test designed to aid in the detection of premalignant and malignant conditions of the uterine cervix. It is not a diagnostic procedure and should not be used as the sole means of detecting cervical cancer. Both false-positive and false-negative reports do occur. . Performed By: #### 4 [id number] #### [facility] [address] [address] [address] Merrick Alva Pathologist Provided ICD10 Comment Normal [facility] Comment on above: Result Comment: R87. 612 Performed By: #### 4 [id number] #### [facility] [address] [address] [address] Merrick Alva Performed by: Comment Normal [facility] Comment on above: Result Comment: Alma Oden, Lead Application Architect (ASCP) Performed By: #### 4 [id number] #### [facility] [address] [address] [address] Merrick Alva Reflex Criteria: Comment Normal [facility] Comment on above: Result Comment: The HPV DNA reflex criteria were not met with this specimen result therefore, no HPV testing was performed. . Performed By: #### 4 [id number] #### [facility] [address] [place] [address] Dr. Merrick Alva Specimen adequacy: Comment Normal [facility] Comment on above: Result Comment: Sati sfactory for evaluation. Endocervical and/or squamous metaplastic cells (endocervical component) are present. Performed By: #### 4 [id number] #### [facility] [address] [address] [address] Merrick Alva RUBELLAon 03-28-2018 RUBELLA 1.85 Normal [facility] Comment on above: Result Comment: NORM AL RANGES: < OR = 0.9O NEGATIVE ; NO DETECTABLE IgG ANTIBODY TO RUBELLA 0.91 - 1.09 EQUIVOCAL; REPEAT TESTING SUGGESTED > OR = 1.10 POSITIVE ; INDICATES PRESENCE OF DETECTABLE IgG ANTIBODY TO RUBELLA VIRUS Performed By: #### 1 [id number] #### [facility] [address] TB QUANTIFERON PLUSon 2018 MITOGEN MINUS NIL >10.00 Normal [facility] Comment on above: Performed By: #### 3 1592 #### [facility] [address] [place] [address], [facility] NIL 0.14 IU/mL Normal [facility] Comment on above: Performed By: #### 3 1592 #### [facility] [address] [place] [address], [facility] TB QUANTIFERON Negative Normal NEGATIVE [facility] Comment on above: Result Comment: Urbano tiferon TB Gold Interpretation (IU/mL): NEGATIVE: M. tuberculosis infection not likely. Nil: <=8.0 TB1 Antigen minus Nil ([id number]): <0.35 OR >=0.35; and <25% of Nil value. TB2 Antigen minus Nil ([id number]): <0.35 OR >=0.35; and <25% of Nil [...] (https://www.cdc.gov/tb/publications/guidlines/default.htm Performed By: #### 3 1592 #### [facility] [address] [facility] [place] [address], [facility] TB1 AG 0.13 IU/mL Normal [facility] Comment on above: Performed By: #### 3 1592 #### [facility] [address] [place] [address], [facility] TB1 AG MINUS NIL -0.01 IU/mL Normal [facility] Comment on above: Performed By: #### 3 1592 #### [facility] [address] [facility] [place] [address], [place] TB2 AG 0.19 IU/mL Normal [facility] Comment on above: Performed By: #### 3 1592 #### [facility] [address] [place] [address], [place] TB2 AG MINUS NIL 0.05 IU/mL Normal [facility] Comment on above: Performed By: #### 3 1592 #### [facility] [address] [place] [address], [facility] Encounters Encounter Date Encounter Type [...] CHIN Facility:[facility]1 Start: 05-18-2022 End: 05-19-2022 ambulatory ENGRAVER LETTERING JOANNEGerald BENZ Facility:[facility] Start: 04-26-2022 End: 04-26-2022 ambulatory ENGRAVER LETTERING JOANNE JOSÉ Facility:[facility] Start: 03-09-2022 ambulatory LISBETH BENZ Facil ity:[facility]1 Start: 02-02-2022 End: 02-03-[address] TROY GIRARD . Facility:[facility] Start: 01-14-2022 End: 01-15-2022 ambulatory LISBETH LANEA JOSÉ Facility:[facility] Start: 12-07-2021 End: 12-22-2021 ambulatory ENGRAVER LETTERING JOANNE JOSÉ Facility:[facility]1 Start: 10-20-2021 End: 10-20-[address] WAYNE AMAYA . Facility:[facility] Payers Date Payer Category Payer Unknown [id number] 2019 Unknown 1993 Unknown [id number] 2.16.84 0.1.785203.3.579.2.593 1993 Unknown [id number] 2.16.84 0.1.886250.3.579.2.593 1993 Unknown [id number] 2.16.84 0.1.159768.3.579.2.593 1993 Unknown [id number] 2.16.84 0.1.268613.3.579.2.593 1993 Unknown [id number] 2.16.84 0.1.502468.3.579.2.593 1993 Unknown [id number] 2.16.84 0.1.713438.3.579.2.593 1993 Unknown [id number] 2.16.84 0.1.336905.3.579.2.593 1993 Unknown [id number] 2.16.84 0.1.490427.3.579.2.593 1993 Unknown [id number] 2.16.84 0.1.706769.3.579.2.1259 1993 Unknown [id number] 2.16.84 0.1.827312.3.579.2.1259 1993 Unknown [id number] 2.16.84 0.1.638535.3.579.2.1259 1993 Unknown [id number] 2.16.840 .1.316434.3.579.2.1259 1993 Unknown [id number] 2.16.840 .1.090045.3.579.2.1259 1959 Self-pay [id number] 1959 Unknown [id number] 1959 Unknown [id number] 1959 Unknown [id number] Unknown [id number] 2.16.84 0.1.885866.3.579.2.593 Consultation note 05-18-2022 Note Date & Type [...] by telephone in one week's time. The [facility] Consultation note 02-02-2022 Note Date & Type [...] decrease the dosage on this. She takes aqyo-uoc-goiurxy NSAIDs along with naproxen 500 mg on [...] understands and would like to proceed. The [facility] Consultation note 02-02-2022 Note Date & Type [...] be followed up in the office. The [facility] Summary Purpose Family History No Family History Records FoundNo Family History Records FoundNo Family History Records Found Advance Directives No Advanced Directives Records FoundNo Advanced Directives Records FoundNo Advanced Directives Records Found Additional Source Comments INFORMATION SOURCE (unrecogn ized section and content) DATE CREATED AUTHOR 12/24/2018 [facility] DATE CREATED AUTHOR AUTHOR'S ORGANIZ ATION 08/03/2022 [facility] DATE CREATED AUTHOR AUTHOR'S ORGANIZ ATION 06/29/2023 [facility] FOR RECORDS PERTAINING TO PATIENTS WHO ARE [...] BE BASED ON THE PRIMARY CLINICAL RECORDS. [facility] [employer] provides no warranty or guarantee of the accuracy or completeness of information in this document.
[2023-07-08 07:04] LABS: HCG Quantitative 31332 mIU/mL
== END 2023-07-08 06:06 | disposition home or self-care (01) ==
PROVIDERS: PCP Nurse Practitioner; Visit Provider Obstetrics & Gynecology
DX: N92.6 Irregular menstruation, unspecified (principal)
CPT/HCPCS: 36415; 84702

== ENCOUNTER 2024-10-27 08:54 | Emergency (ER) | payer SELFPAY ==
[2024-10-27 08:58] VITALS: BP 140/96; PULSE 80; TEMP 36.8; O2SAT 99; BMI 27.3
--- OUTSIDE RECORDS SUMMARY | 2024-10-27 09:06 | XMS_ITS | CCD ---
Author Organization [facility] Care Team Providers Care Parlor Chaperone Name Role Phone AICHHOLZ, LIBRARY CLERK JOANNE Attending Unavailable AICHHOLZ, LIBRARY CLERK JOANNE Consulting Unavailable AICHHOLZ, LIBRARY CLERK JOANNE Primary Care Unavailable AICHHOLZ, LIBRARY CLERK JOANNE Admitting Unavailable ANGIE, DR ANA LAURA Salgado Consulting Unavailable JOSE LUIS ., DR BLACK Admitting Unavailable AICHHOLZ, LIBRARY CLERK JOANNE Primary Care Unavailable JOSE LUIS ., DR BLACK Attending Unavailable JOSE LUIS ., DR BLACK Consulting Unavailable AICHHOLZ, LIBRARY CLERK JOANNE Primary Care Unavailable JOSE LUIS ., DR BLACK Admitting Unavailable JOSE LUIS ., DR BLACK Attending Unavailable JOSE LUIS ., DR BLACK Consulting Unavailable GIUSEPPE, DR MARCIA Rabago Admitting Unavailable WEST, DR MARCIA Rabago Attending Unavailable WEST, DR MARCIA Rabago Consulting Unavailable AICHHOLZ, LIBRARY CLERK JOANNE Primary Care Unavailable AICHHOLZ, LIBRARY CLERK JOANNE Primary Care Unavailable AICHHOLZ, LIBRARY CLERK JOANNE Admitting Unavailable AICHHOLZ, LIBRARY CLERK JOANNE Attending Unavailable AICHHOLZ, LIBRARY CLERK JOANNE Attending Unavailable AICHHOLZ, LIBRARY CLERK JOANNE Consulting Unavailable AICHHOLZ, LIBRARY CLERK JOANNE Primary Care Unavailable AICHHOLZ, LIBRARY CLERK JOANNE Admitting Unavailable ERA .DR TROY Admitting Unavailable AICHHOLZ, LIBRARY CLERK JOANNE Primary Care Unavailable GIRARD ., DR TROY Lopez Attending Unavailable GIRARD ., DR TROY Lopez Consulting Unavailable AICHHOLZ, LIBRARY CLERK JOANNE Primary Care Unavailable VILMA MORENO Consulting Unavailable ERA ., DR TROY Lopez Admitting Unavailable GIRARD ., DR TROY Lopez Attending Unavailable LAKSHMIPATHY ., NARENDRANVIRGINIA Consulting Naima vailable AICHHOLZ, LIBRARY CLERK JOANNE Primary Care Unavailable GIRARD ., DR TRYO Lopez Admitting Unavailable GIRARD ., DR TROY Lopez Attending Unavailable NENITA MAN Attending Unavailable NENITA MAN Attending Unavailable WAYNE QUEEN Attending Unavailable NENITA MAN Attending Unavailable NENITA MAN Attending Unavailable WAYNE QUEEN Attending Unavailable Angel Leon MD Primary Care Provider Demar BRISCOE Joanne Unavailable Medications Current Medications Medication Drug Class(es) Dates Sig (Normalized) Sig (Original) 24 hr metFORMIN hydrochloride 500 mg extended release oral tablet (1 source) Biguanide Start: 08-03-2023 End: 08-02-2024 take 1 tablet by mouth every twenty-four hours at mealtime metFORMIN XR (Glucophage-XR) 500 MG 24 hr tablet Indications: Weight gain Take 1 tablet (500 mg) by mouth in the evening. Take with meals Do not crush, chew, or split. 30 tablet 08/03/2023 08/02/2024 Active Problems Active Problems Problem Classification Problem Date Documented Date Episodic/Chronic Anxiety disorders (1 source) Mixed anxiety and depressive disorder; Translations: [Other specified anxiety disorders] Onset: 10-27-2022 10-27-2022 Chronic Esophageal disorders (1 source) Gastroesophageal reflux disease; Translations: [Gastro-esophageal reflux disease without esophagitis] Onset: 10-27-2022 10-27-2022 Chronic Other endocrine disorders (1 source) Polycystic ovary; Translations: [Polycystic ovarian syndrome] Onset: 10-27-2022 10-27-2022 Chronic Other nutritional; endocrine; and metabolic disorders (1 source) Obese class I; Translations: [Obesity, unspecified] Onset: 10-27-2022 10-27-2022 Chronic Spondylosis; intervertebral disc disorders; other back [...] Problem Classification Problem Date Documented Date Episodic/Chronic Abdominal pain (1 source) Epigastric pain; Translations: [Epigastric pain] Onset: 10-27-2022 10-27-2022 Episodic Cancer of cervix (5 sources) Low grade squamous intraepithelial lesion on cytologic smear of cervix (LGSIL); Translations: [Cervicovaginal cytology: Low grade squamous intraepithelial lesion] Onset: 04-26-2022 Episodic Immunizations and screening for infectious disease (1 source) Encounter for screening for human papillomavirus (HPV); Translations: [ENC SCREENING HUMAN PAPILLOMAVIRUS] Onset: 04-27-2022 Episodic Nonmalignant breast conditions (1 source) Pain of breast; Translations: [Mastodynia] Onset: 10-27-2022 10-27-2022 Episodic Other connective tissue disease (1 source) Abnormal posture; Translations: [ABNORMAL POSTURE] Onset: 12-08-2021 Episodic Other female genital disorders (1 source) Dysplasia of cervix; Translations: [Dysplasia of cervix uteri, unspecified] Onset: 10-27-2022 10-27-2022 Episodic Other non-traumatic joint disorders (1 source) Pain in right knee; Translations: [PAIN IN RIGHT KNEE] Onset: 12-08-2021 Episodic Other nutritional; endocrine; and metabolic disorders (1 source) Abnormal weight gain; Translations: [Abnormal weight gain] Onset: 10-27-2022 10-27-2022 Episodic Other screening for suspected conditions (not mental disorders or infectious disease) (6 sources) Encounter for screening for malignant neoplasm of cervix; Translations: [Abnormal cervical Papanicolaou smear] Onset: 10-20-2021 Episodic Other skin disorders (1 source) Acne; Translations: [Acne, unspecified] Onset: 10-27-2022 10-27-2022 Episodic Unclassified (1 source) LOW BACK PAIN, UNSPECIFIED; Translations: [LOW BACK PAIN, UNSPECIFIED] Onset: 01-14-2022 Results Test Name Value Interpretation Reference Range Facility CBC AUTO DIFFon 08-02-2022 BASO # 0.1 103/ul Normal 0.0-0.1 [facility] Comment on above: Performed By: #### C BC #### [facility] [address] [address] [address] Merrick Alva Basophils/100 WBC (Bld) 0.4 % Normal 0.2-2.0 [facility] Comment on above: Performed By: #### C BC #### [facility] [address] [place] [address] Dr. Merrick Alva EO # 0.2 103/ul Normal 0.0-0.7 [facility] Comment on above: Performed By: #### C BC #### [facility] [address] [place] [address] Dr. Merrick Alva Eosinophils/100 WBC (Bld) 1.1 % Normal 0.9-7.0 [facility] Comment on above: Performed By: #### C BC #### [facility] [address] [place] [address] Dr. Merrick Alva Erythrocyte distribution width (RBC) [Ratio] 13.4 % Normal 11.0-15.0 [facility] Comment on above: Performed By: #### C BC #### [facility] [address] [place] [address] Dr. Merrick Alva Hematocrit (Bld) [Volume fraction] 38.2 % Normal 36.0-48.0 [facility] Comment on above: Performed By: #### C BC #### [facility] [address] [place] [address] Dr. Merrick Alva Hemoglobin (Bld) [Mass/Vol] 13.1 g/dL Normal 12.0-16.0 [facility] Comment on above: Performed By: #### C BC #### [facility] [address] [place] [address] Dr. Merrick Alva IG # 0.03 10e3/ul Normal 0.00-0.03 [facility] Comment on above: Performed By: #### C BC #### [facility] [address] [place] [address] Dr. Merrick Alva IG % 0.2 % Normal 0.0-0.5 [facility] Comment on above: Performed By: #### C BC #### [facility] [address] [place] [address] Dr. Merrick Alva LYMPH # 5.6 103/ul Critically high 1.2-3.8 [facility] Comment on above: Performed By: #### C BC #### [facility] [address] [place] [address] Dr. Merrick Alva Lymphocytes/100 WBC (Bld) 42.9 % Normal 20.5-60.0 [facility] Comment on above: Performed By: #### C BC #### [facility] [address] [place] [address] Dr. Merrick Alva MANUAL DIFF REQ NO Normal [facility] Comment on above: Performed By: #### C BC #### [facility] [address] [place] [address] Dr. Merrick Alva MCH (RBC) [Entitic mass] 29.6 pg Normal 26.7-34.0 [facility] Comment on above: Performed By: #### C BC #### [facility] [address] [place] [address] Dr. Merrick Alva MCHC (RBC) [Mass/Vol] 34.3 g/dL Normal 29.9-35.2 [facility] Comment on above: Performed By: #### C BC #### [facility] [address] [place] [address] Dr. Merrick Alva MCV (RBC) [Entitic vol] 86.2 fL Normal 81.0-99.0 [facility] Comment on above: Performed By: #### C BC #### [facility] [address] [place] [address] Dr. Merrick Alva MONO # 0.8 103/ul Normal 0.3-0.8 [facility] Comment on above: Performed By: #### C BC #### [facility] [address] [place] [address] Dr. Merrick Alva Monocytes/100 WBC (Bld) 6.1 % Normal 1.7-12.0 [facility] Comment on above: Performed By: #### C BC #### [facility] [address] [place] [address] Dr. Merrick Alva NEUT # 6.4 103/ul Normal 1.4-6.5 [facility] Comment on above: Performed By: #### C BC #### [facility] [address] [place] [address] Dr. Merrick Alva Neutrophils/100 WBC (Bld) 49.3 % Normal 43.0-75.0 [facility] Comment on above: Performed By: #### C BC #### [facility] [address] [address] [address] Merrick Alva Platelet mean volume (Bld) [Entitic vol] 10.3 fL Normal 9.5-13.5 [facility] Comment on above: Performed By: #### C BC #### [facility] [address] [address] [address] Merrick Alva PLT 288 103/ul Normal 150-450 [facility] Comment on above: Performed By: #### C BC #### [facility] [address] [address] [address] Merrick Alva RBC 4.43 106/ul Normal 4.20-5.40 [facility] Comment on above: Performed By: #### C BC #### [facility] [address] [address] [address] Merrick Alva WBC 13.1 103/ul Critically high 4.0-11.0 [facility] Comment on above: Performed By: #### C BC #### [facility] [address] [address] [address] Merrick Alva GLYCOHEMOGLOBIN A1Con 2022 ADA RECOMMENDATION SEE BELOW Normal [facility] Comment on above: Result Comment: ADA RECOMMENDED LIMIT 4.0 - 6.0 ADA THERAPEUTIC TARGET < 7.0 ACTION SUGGESTED > 7.0 Performed By: #### A 1C #### [facility] [address] [address] [address] Merrick Alva Glucose [Mass/Vol] 111 mg/dL Normal [facility] Comment on above: Performed By: #### A 1C #### [facility] [address] [address] [address] Merrick Alva HbA1c (Bld) [Mass fraction] 5.5 % Normal 4.5-6.2 [facility] Comment on above: Performed By: #### A 1C #### [facility] [address] [address] [address] Merrick Alva LIPID PROFILEon 08-02-2022 CHOL-HDL RATIO NORM SEE BELOW Normal [facility] Comment on above: Result Comment: 3.3 - 4.4 LOW RISK 4.4 - 7.1 AVERAGE RISK 7.1 - 11.0 MODERATE RISK >11.0 HIGH RISK Performed By: #### L IPID, TSH, CMP #### [facility] [address] [address] [address] Merrick Alva Cholesterol [Mass/Vol] 153 mg/dL Normal <=200 [facility] Comment on above: Performed By: #### L IPID, TSH, CMP #### [facility] [address] [place] [address] Dr. Merrick Alva Cholesterol in HDL [Mass/Vol] 41 mg/dL Normal 40-60 [facility] Comment on above: Performed By: #### L IPID, TSH, CMP #### [facility] [address] [place] [address] Dr. Merrick Alva Cholesterol in LDL [Mass/Vol] 92.4 mg/dL Normal [facility] Comment on above: Performed By: #### L IPID, TSH, CMP #### [facility] [address] [place] [address] Dr. Merrick Alva Cholesterol.total/Ch olesterol in HDL [Mass ratio] 3.7 {ratio} Normal [facility] Comment on above: Performed By: #### L IPID, TSH, CMP #### [facility] [address] [place] [address] Dr. Merrick Alva HDL NORMAL > or = 60 mg/dl - LO W CARDIOVASCULAR RISK <40 mg/dl - HIGH CARDIOVASCULAR RISK Normal [facility] Comment on above: Performed By: #### L IPID, TSH, CMP #### [facility] [address] [place] [address] Dr. Merrick Alva LDL CALC NORMAL SEE BELOW Normal [facility] Comment on above: Result Comment: <100 mg/dl OPTIMAL 100 - 129 mg/dl NEAR OR ABOVE OPTIMAL 130 - 159 mg/dl BORDERLINE HIGH 160 - 189 mg/dl HIGH >190 mg/dl VERY HIGH Performed By: #### L IPID, TSH, CMP #### [facility] [address] [address] [address] Merrick Alva Triglyceride [Mass/Vol] 98 mg/dL Normal <=150 [facility] Comment on above: Performed By: #### L IPID, TSH, CMP #### [facility] [address] [address] [address] Merrick Alva VLDL CALC 19.6 mg/dL Normal [facility] Comment on above: Performed By: #### L IPID, TSH, CMP #### [facility] [address] [address] [address] Merrick Alva PROF 14(COMP METB)on 023 Albumin [Mass/Vol] 3.7 g/dL Normal 3.4-5.0 [facility] Comment on above: Performed By: #### L IPID, TSH, CMP #### [facility] [address] [place] [address] Dr. Merrick Alva Albumin/Globulin [Mass ratio] 0.9 {ratio} Normal [facility] Comment on above: Performed By: #### L IPID, TSH, CMP #### [facility] [address] [place] [address] Dr. Merrick Alva ALP [Catalytic activity/Vol] 98 U/L Normal 46-116 [facility] Comment on above: Performed By: #### L IPID, TSH, CMP #### [facility] [address] [address] [address] Merrick Alva ALT [Catalytic activity/Vol] 37 U/L Normal 14-59 [facility] Comment on above: Performed By: #### L IPID, TSH, CMP #### [facility] [address] [place] [address] Dr. Merrick Alva Anion gap [Moles/Vol] 12.1 mmol/L Normal [facility] Comment on above: Performed By: #### L IPID, TSH, CMP #### [facility] [address] [place] [address] Dr. Merrick Alva AST [Catalytic activity/Vol] 22 U/L Normal 15-37 [facility] Comment on above: Performed By: #### L IPID, TSH, CMP #### [facility] [address] [place] [address] Dr. Merrick Alva Bilirubin [Mass/Vol] 0.5 mg/dL Normal 0.2-1.0 [facility] Comment on above: Performed By: #### L IPID, TSH, CMP #### [facility] [address] [address] [address] Merrick Alva Calcium [Mass/Vol] 8.9 mg/dL Normal 8.5-10.1 [facility] Comment on above: Performed By: #### L IPID, TSH, CMP #### [facility] [address] [place] [address] Dr. Merrick Alva Chloride [Moles/Vol] 105 mmol/L Normal 98-107 [facility] Comment on above: Performed By: #### L IPID, TSH, CMP #### [facility] [address] [place] [address] Dr. Merrick Alva CO2 [Moles/Vol] 27.7 mmol/L Normal 21.0-32.0 [facility] Comment on above: Performed By: #### L IPID, TSH, CMP #### [facility] [address] [place] [address] Dr. Merrick Alva Creatinine [Mass/Vol] 0.76 mg/dL Normal 0.55-1.02 [facility] Comment on above: Performed By: #### L IPID, TSH, CMP #### [facility] [address] [place] [address] Dr. Merrick Alva EGFR-AF PERUVIAN >60 Normal >=60 [facility] Comment on above: Performed By: #### L IPID, TSH, CMP #### [facility] [address] [place] [address] Dr. Merrick Alva EGFR-NON AF PERUVIAN >60 Normal >=60 [facility] Comment on above: Performed By: #### L IPID, TSH, CMP #### [facility] [address] [address] [address] Merrick Alva Globulin (S) [Mass/Vol] 4.1 g/dL Normal [facility] Comment on above: Performed By: #### L IPID, TSH, CMP #### [facility] [address] [place] [address] Dr. Merrick Alva Glucose [Mass/Vol] 87 mg/dL Normal 74-106 [facility] Comment on above: Performed By: #### L IPID, TSH, CMP #### [facility] [address] [place] [address] Dr. Merrick Alva Potassium [Moles/Vol] 3.8 mmol/L Normal 3.5-5.1 [facility] Comment on above: Performed By: #### L IPID, TSH, CMP #### [facility] [address] [place] [address] Dr. Merrick Alva Protein [Mass/Vol] 7.8 g/dL Normal 6.4-8.2 [facility] Comment on above: Performed By: #### L IPID, TSH, CMP #### [facility] [address] [place] [address] Dr. Merrick Alva Sodium [Moles/Vol] 141 mmol/L Normal 136-145 [facility] Comment on above: Performed By: #### L IPID, TSH, CMP #### [facility] [address] [place] [address] Dr. Merrick Alva Urea nitrogen [Mass/Vol] 11.0 mg/dL Normal 7.0-18.0 [facility] Comment on above: Performed By: #### L IPID, TSH, CMP #### [facility] [address] [place] [address] Dr. Merrick Alva Urea nitrogen/Creatinine [Mass ratio] 14.5 mg/mg Normal [facility] Comment on above: Performed By: #### L IPID, TSH, CMP #### [facility] [address] [place] [address] Dr. Merrick Alva TSHon 08-02-2022 TSH 1.453 uIU/mL Normal 0.358-3.740 [facility] Comment on above: Performed By: #### L IPID, TSH, CMP #### [facility] [address] [place], [place] [address] Dr. Merrick Alva Pap IG, rfx Aptima HPV, rfx 16/18,45on 05-04-2022 . . Normal [facility] Comment on above: Result Comment: Perf ormed at: WB Performed By: #### P APHR2A ####[facility] [address] [id number] Alva DIAGNOSIS: Comment Abnormal [facility] Comment on above: Result Comment: EPIT HELIAL CELL ABNORMALITY. ATYPICAL SQUAMOUS CELLS OF UNDETERMINED SIGNIFICANCE (ASC-US). PREDOMINANCE OF COCCOBACILLI CONSISTENT WITH SHIFT IN VAGINAL POLLY IS PRESENT. Performed at: WB Performed By: #### P APHR2A ####[facility] [address] [address]Dr. Merrick Alva Electronically signed by: Comment Normal [facility] Comment on above: Result Comment: Jammie Wahl MD, Pathologist Performed at: WB Performed By: #### P APHR2A ####[facility] [address] [id number] Alva HPV Aptima Negative Normal Negative [facility] Comment on above: Result Comment: This nucleic acid amplification test detects fourteen high-risk HPV types (16,18,31,33,35,39,45,51,52,56,58,59,66,68) without differentiation. Performed at: =G Performed By: #### P APHR2A ####[facility] [address] [id number] Alva HPV Genotype Reflex Comment Normal [facility] Comment on above: Result Comment: Crit eria not met, HPV Genotype not performed. Performed at: WB Performed By: #### P APHR2A ####[facility] [address] [place], [place] [address]SdAna Alva Methodology: Comment Normal [facility] Comment on above: Result Comment: This liquid based ThinPrep(R) pap test was screened with the use of an image guided system. Performed at: WB Performed By: #### P APHR2A ####[facility] [address] [address]Dr. Merrick Alva Note: Comment Normal [facility] Comment on above: Result Comment: The Pap smear is a screening test designed to aid in the detection of premalignant and malignant conditions of the uterine cervix. It is not a diagnostic procedure and should not be used as the sole means of detecting cervical cancer. Both false-positive and false-negative reports do occur. . Performed at: WB Performed By: #### P APHR2A ####[facility] [address] [address]Dr. Merrick Alva Pathologist Provided ICD10 Comment [facility] Comment on above: Result Comment: R87. 610, R87.5 Performed at: WB Performed By: #### P APHR2A ####[facility] [address] [place], [place] [address]DrAna Alva Performed by: Comment Normal [facility] Comment on above: Result Comment: Jay Jay Flores, Marketing Strategist (ASCP) Performed at: WB Performed By: #### P APHR2A ####[facility] [address] [place], [place] [address]Dr. Merrick Alva Recommendation: Comment Abnormal [facility] Comment on above: Result Comment: Sugg est follow up as clinically appropriate. Performed at: WB Performed By: #### P APHR2A ####[facility] [address] [place], [place] [address]DrAna Alva Specimen adequacy: Comment Normal [facility] Comment on above: Result Comment: Sati sfactory for evaluation. Endocervical and/or squamous metaplastic cells (endocervical component) are present. Performed at: WB Performed By: #### P APHR2A ####[facility] [address] [place], [place] [address]DrAna Alva XR LSPINE 2_3 VIEWSon 2021 XR [...] ANA LAURA ADAMS Date: 2022-01-14 07:25 Normal [facility] PAP ACOG PANEL 2: 19 to 27on 10-26-2021 . . Normal [facility] Comment on above: Performed By: #### [id number] #### [facility] [address] [place] [address] Dr. Merrick Alva Age Gdln ACOG Testing - Normal [facility] Comment on above: Performed By: #### [id number] #### [facility] [address] [place] [address] Dr. Merrick Alva DIAGNOSIS: Comment Abnormal [facility] Comment on above: Result Comment: EPIT HELIAL CELL ABNORMALITY. LOW GRADE SQUAMOUS INTRAEPITHELIAL LESION (LSIL). Performed By: #### [id number] #### [facility] [address] [place] [address] Dr. Merrick Alva Electronically signed by: Comment Normal [facility] Comment on above: Result Comment: Shira Blandon MD, Pathologist Performed By: #### [id number] #### [facility] [address] [place] [address] Dr. Merrick Alva Methodology: Comment Normal [facility] Comment on above: Result Comment: This liquid based ThinPrep(R) pap test was screened with the use of an image guided system. Performed By: #### [id number] #### [facility] [address] [place] [address] Dr. Merrick Alva Note: Comment Normal [facility] Comment on above: Result Comment: The Pap smear is a screening test designed to aid in the detection of premalignant and malignant conditions of the uterine cervix. It is not a diagnostic procedure and should not be used as the sole means of detecting cervical cancer. Both false-positive and false-negative reports do occur. . Performed By: #### [id number] #### [facility] [address] [address] [address] Merrick Alva Pathologist Provided ICD10 Comment Normal [facility] Comment on above: Result Comment: R87. 612 Performed By: #### [id number] #### [facility] [address] [address] [address] Merrick Alva Performed by: Comment Normal [facility] [facility] Comment on above: Result Comment: Alma Oden, Marketing Strategist (ASCP) Performed By: #### [id number] #### [facility] [address] [address] [address] Merrick Alva Reflex Criteria: Comment Normal [facility] Comment on above: Result Comment: The HPV DNA reflex criteria were not met with this specimen result therefore, no HPV testing was performed. . Performed By: #### [id number] #### [facility] [address] [place] [address] Dr. Merrick Alva Specimen adequacy: Comment Normal [facility] Comment on above: Result Comment: Sati sfactory for evaluation. Endocervical and/or squamous metaplastic cells (endocervical component) are present. Performed By: #### [id number] #### [facility] [address] [address] [address] Merrick Alva RUBELLAon 03-28-2018 RUBELLA 1.85 Normal [facility] Comment on above: Result Comment: NORM AL RANGES: < OR = 0.9O NEGATIVE ; NO DETECTABLE IgG ANTIBODY TO RUBELLA 0.91 - 1.09 EQUIVOCAL; REPEAT TESTING SUGGESTED > OR = 1.10 POSITIVE ; INDICATES PRESENCE OF DETECTABLE IgG ANTIBODY TO RUBELLA VIRUS Performed By: #### 1 [id number] #### [facility] [address] TB QUANTIFERON PLUSon 2018 MITOGEN MINUS NIL >10.00 Normal [facility] Comment on above: Performed By: #### 3 [id number] #### [facility] [address] [place] [address], [facility] NIL 0.14 IU/mL Normal [facility] Comment on above: Performed By: #### 3 [id number] #### [facility] [address] [place] [address], [facility] TB QUANTIFERON Negative Normal NEGATIVE [facility] Comment on above: Result Comment: [place] tiferon TB Gold Interpretation (IU/mL): NEGATIVE: M. tuberculosis infection not likely. Nil: <=8.0 TB1 Antigen minus Nil (FU9CS-OAQ): <0.35 OR >=0.35; and <25% of Nil value. TB2 Antigen minus Nil (EQ2IQ-VCX): <0.35 OR >=0.35; and <25% of Nil [...] (https://www.cdc.gov/tb/publications/guidlines/default.htm Performed By: #### 3 [id number] #### [facility] [address] [facility] [place] [address], [facility] TB1 AG 0.13 IU/mL Normal [facility] Comment on above: Performed By: #### 3 [id number] #### [facility] [address] [facility] [place] [address], [facility] TB1 AG MINUS NIL -0.01 IU/mL Normal [facility] Comment on above: Performed By: #### 3 [id number] #### [facility] [address] [place] [address], [facility] TB2 AG 0.19 IU/mL Normal [facility] Comment on above: Performed By: #### 3 [id number] #### [facility] [address] [place] [address], [place] TB2 AG MINUS NIL 0.05 IU/mL Normal [facility] Comment on above: Performed By: #### 3 [id number] #### [facility] [place] [address], [facility] Encounters Encounter Date Encounter Type Care Provider Facility Start: 11-09-2023 End: 11-09-2023 Orders Only Joanne Demar REWORK OPERATOR Work Phone: [facility] Comment on above: Wellness examination (Primary Dx) Start: 11-09-2023 End: 11-09-2023 Patient encounter status Joanne Madisoncassidy REWORK OPERATOR Work Phone: [facility] Work Phone: Start: 08-03-2023 End: 08-03-2023 ambulatory WAYNE JOSE LUIS Not Available Start: 06-28-2023 End: 06-28-2023 ambulatory NENITA MAGDA Not Available Start: 05-26-2023 End: 05-26-2023 ambulatory NENITA MAGDA Not Available Start: 04-13-2023 End: 04-13-2023 ambulatory NENITA MAGDA Not Available Start: 03-15-2023 End: 03-15-2023 ambulatory NENITA MAGDA Not Available Start: 02-14-2023 End: 02-14-2023 ambulatory WAYNE JOSE LUIS Not Available Start: 08-02-2022 End: 08-03-2022 ambulatory LIBRARY CLERK JOANNE AICPATRICIAZ Facility:[facility]1 Start: 07-12-2022 End: 07-13-[address] MARCIA CHIN Facility:[facility] Start: 05-18-2022 End: 05-19-2022 ambulatory LIBRARY CLERK JOANNE DEMAR Facility:[facility] Start: 04-26-2022 End: 04-26-2022 ambulatory LIBRARY CLERK JOANNE KIRITHBERNICEZ Facility:[facility] Start: 03-09-2022 ambulatory LIBRARY CLERK JOANNE DEMAR Facil ity:[facility]1 Start: 02-02-2022 End: 02-03-[address] TROY GIRARD . Facility:[facility] Start: 01-14-2022 End: 01-15-2022 ambulatory LIBRARY CLERK JOANNE AICCONSTANTIN Facility:[facility] Start: 12-07-2021 End: 12-22-2021 ambulatory LIBRARY CLERK JOANNE DEMAR Facility:[facility] Start: 10-20-2021 End: 10-20-[address] WAYNE QUEEN . Facility:[facility] Procedures Date Procedure Procedure Detail Performing Clinician Start: 04-26-2022 Microscopic observat ion [Identifier] in Cervix by Cyto stain Joanne Demar REWORK OPERATOR Work Phone: Plan of Treatment Date Care Activity Detail Author Start: 02-20-2024 End: 02-20-2024 Patient encounter procedure 02/20/2024 2:00 PM EST Office Visit [facility] [address] [place] [id number] Wayne Queen, DO [address] [place] [address] [facility] Start: 11-20-2023 Influenza vaccination Influenza Vacc ine (#1) [facility] Start: 11-09-2023 End: 11-08-2024 CBC W Auto Differential panel - Blood CBC and differential Lab Routine Wellness examination Expected: 11/09/2023 (Approximate), Expires: 11/08/2024 [facility] Work Phone: Comment on above: Expected: 11/09/2023 (Approximate), Expires: 11/08/2024 Start: 11-09-2023 End: 11-08-2024 Comprehensive metabolic 2000 panel - Serum or Plasma Comprehensive metabolic panel Lab Routine Wellness examination Expected: 11/09/2023 (Approximate), Expires: 11/08/2024 [facility] Comment on above: Expected: 11/09/2023 (Approximate), Expires: 11/08/2024 Start: 11-09-2023 End: 11-08-2024 Hemoglobin A1c/Hemoglobin.total in Blood Hemoglobin A1c Lab Routine Wellness examination Expected: 11/09/2023 (Approximate), Expires: 11/08/2024 [facility] Comment on above: Expected: 11/09/2023 (Approximate), Expires: 11/08/2024 Start: 11-09-2023 End: 11-08-2024 Lipid 1996 panel - Serum or Plasma Lipid panel Lab Routine Wellness examination Expected: 11/09/2023 (Approximate), Expires: 11/08/2024 [facility] Comment on above: Expected: 11/09/2023 (Approximate), Expires: 11/08/2024 Start: 11-09-2023 End: 11-08-2024 Thyrotropin [Units/volume] in Serum or Plasma TSH Lab Routine Wellness examination Expected: 11/09/2023 (Approximate), Expires: 11/08/2024 [facility] Comment on above: Expected: 11/09/2023 (Approximate), Expires: 11/08/2024 Start: 10-09-2023 Screening for malign ant neoplasm of cervix HPV/Cotest [facility] Start: 10-24-2022 Screening for malign ant neoplasm of cervix [facility] Payers Date Payer Category Payer Unknown [id number] 2019 Unknown 1993 Unknown [id number] 2.16.84 [id number] 1993 Unknown [id number] 2.16.84 [id number] 1993 Unknown [id number] 2.16.84 0.1.350897.3.579.2.593 1993 Unknown [id number] 2.16.84 0.1.211815.3.579.2.593 1993 Unknown [id number] 2.16.84 0.1.322992.3.579.2.593 1993 Unknown [id number] 2.16.84 0.1.204671.3.579.2.593 1993 Unknown [id number] 2.16.84 0.1.551850.3.579.2.593 1993 Unknown [id number] 2.16.84 0.1.474110.3.579.2.593 1993 Unknown [id number] 2.16.84 0.1.542286.3.579.2.1259 1993 Unknown [id number] 2.16.84 0.1.237987.3.579.2.1259 1993 Unknown [id number] 2.16.84 0.1.927502.3.579.2.9 1993 Unknown [id number] 2.16.84 0.1.143235.3.579.2.9 1993 Unknown [id number] 2.16.840 .1.242641.3.579.2.9 1993 Unknown [id number] 2.16.840 .1.679915.3.579.2.1259 1959 Self-pay [id number] 1959 Unknown [id number] 1959 Unknown [id number] 1959 Unknown [id number] Unknown [id number] 2.16.84 [id number] Social History Date Type Detail Facility Start: 10-29-2022 Tobacco smoking stat [facility] Never smoked tobacco [facility] Start: 10-29-2022 Tobacco use and exposure Smokeless t obacco non-user [facility] Start: 08-03-2023 Alcoholic beverage intake Curr ent drinker of alcohol (finding) [facility] Start: 06-28-2023 History of Social function [facility] Start: 06-28-2023 Tobacco use panel [facility] Start: 11-23-2022 Alcohol Comment Occasional alcohol u se [facility] Start: 1995 Sex assigned at Not on file [facility] Consultation note 05-18-2022 Note Date & Type [...] by telephone in one week's time. [facility] Consultation note 02-02-2022 Note Date & Type [...] decrease the dosage on this. She takes [id number] NSAIDs along with naproxen 500 mg on [...] understands and would like to proceed. [facility] Consultation note 02-02-2022 Note Date & Type [...] be followed up in the office. [facility] Evaluation note Note Date & Type Note Facility Evaluation note Diagnosis Wellness examination- Primary documented in this encounter [facility] Summary Purpose Family History No Family History Records FoundNo Family History Records FoundNo Family History Records Found Advance Directives No Advanced Directives Records FoundNo Advanced Directives Records FoundNo Advanced Directives Records Found Additional Source Comments INFORMATION SOURCE (unrecogn ized section and content) DATE CREATED AUTHOR 12/24/2018 [facility] DATE CREATED AUTHOR AUTHOR'S ORGANIZ ATION 08/03/2022 [facility] DATE CREATED AUTHOR AUTHOR'S ORGANIZ ATION 08/06/2023 [facility] Care Teams (unrecognized sec tion and content) [employer] Chaperone Relationship Specialty Start Date End Date Angel Leon MD [address] [place] [id number] PCP - General Family Medicine 11/09/23 Joanne Benz NP [address] [place] [id number] Nurse Practitioner Family Medicine 11/09/23 FOR RECORDS PERTAINING TO PATIENTS WHO ARE [...] BE BASED ON THE PRIMARY CLINICAL RECORDS. [employer] [facility]. provides no warranty or guarantee of the accuracy or completeness of information in this document.
[2024-10-27 09:22] LABS: Hematocrit 37.1 % (36.0-48.0); Hemoglobin 13.3 g/dL (12.0-16.0); Immature Granulocytes Abs Auto 0.02 10^3/uL (0.00-0.03); Immature Granulocytes Pct Auto 0.2 % (0.0-0.5); Lymphocytes Absolute Auto 3.1 10^3/uL (1.2-3.8); Mean Corpuscular HGB Conc 35.8 g/dL (29.9-35.2); Mean Corpuscular Hemoglobin 31.9 pg (26.7-34.0); Mean Corpuscular Volume 89.0 fL (81.0-99.0); Platelet Count 237 10^3/uL (150-450); Red Blood Count 4.17 10^6/uL (4.20-5.40); White Blood Count 8.4 10^3/uL (4.0-11.0)
[2024-10-27 09:22] LABS: Glucose Urine UA NEGATIVE (NEGATIVE)
[2024-10-27 09:32] LABS: Cast Seen? NONE SEEN #/LPF (NONE SEEN); Crystals Seen? None Seen #/HPF (None Seen)
[2024-10-27 09:33] LABS: Urine Culture Indicated NO
[2024-10-27 09:41] LABS: Alanine Aminotransferase 41 U/L (14-59); Albumin Globulin Ratio 1.0; Albumin Level 3.8 g/dL (3.4-5.0); Alkaline Phosphatase 83 U/L (46-116); Anion Gap 9.6; Aspartate Amino Transferase 19 U/L (15-37); Blood Urea Nitrogen 11.0 mg/dL (7.0-18.0); Calcium 8.9 mg/dL (8.5-10.1); Carbon Dioxide 28.7 mmol/L (21.0-32.0); Chloride 105 mmol/L (98-107); Estimated GFR (African America >60 (>=60 mL/min/1.73m^2); Estimated GFR (Non-African Ame >60 (>=60 mL/min/1.73m^2); Globulin 3.7 g/dL; Glucose 97 mg/dL (74-106); Potassium 4.3 mmol/L (3.5-5.1); Sodium 139 mmol/L (136-145); Total Protein 7.5 g/dL (6.4-8.2)
--- NOTE | 2024-10-27 10:08 | ED.FEMALEGU1 ---
HPI - Female Genitourinary General Chief complaint: Urogenital-Female Stated complaint: VAGINAL BLEEDING LESS THAN 9WKS, ABDOMINAL PAIN Time Seen by Provider: 10/27/24 09:02 Source: patient Mode of arrival: walk-in History of Present Illness HPI Narrative: The patient 29-year-old female is coming to the ER with a concern of bleeding with , patient had been twice before one of them was a miscarriage and recently had an in April of this year The patient is coming to the ER with a suprapubic discomfort and cramping that is similar to her menstruation with some left-sided abdominal pain that is crampy and not present at the moment although she had it last night, the patient mentioned that almost at the beginning of this month 9 days ago she had a positive test in the urine . The patient supposed to follow-up with Dr. Queen but not yet Related Data Allergies Allergy/AdvReac Type Severity Reaction Status Date / Time No Known Drug Allergies Allergy Verified 02/18/23 09:43 Review of Systems ROS Status of ROS 10 or more systems reviewed and unremarkable except as noted in history and below PFSH PFSH Social History Little interest or pleasure in doing things: not at all Feeling down, depressed, or hopeless: not at all Exam Narrative Exam Narrative: Nurses notes and vital signs reviewed and patient is not hypoxic. General: Well-appearing and in no apparent distress. Skin: Warm, dry, no pallor noted. No rash. Head: Normocephalic, atraumatic. Neck: Supple, non-tender. Eye: Pupils are equal, round and EOMI. No scleral icterus. Ears, Nose, Mouth, and Throat: TM are clear, no nasal mucosal hypertrophy. Oral mucosa is moist, no posterior oropharynx erythema, uvula is mid-line Cardiovascular: Regular Rate and Rhythm without murmur, gallop or rub. Respiratory: No accessory muscle use or respiratory distress. Lungs are clear to auscultation, no wheezing, rales or rhonchi Chest Wall: no tenderness Back: No midline thoracic or lumbar vertebral tenderness. No CVA tenderness Musculoskeletal: normal ROM, no calf or popliteal tenderness, no lower extremity edema/swelling GI: Abdomen is soft, non-distended. Normal bowel sounds. No masses appreciated. No rebound, guarding, or rigidity noted. The patient have left lower quadrant tenderness on deep palpation Neurological: A&O x4. No cranial nerve dysfunction observed. No truncal ataxia. Moves all extremities. Sensation intact. Psychiatric: Cooperative and interactive. Normal mood and affect. Constitutional Vital Signs, click to edit/add: Last Vital Signs Temp 98.2 F 10/27/24 08:58 Pulse 80 10/27/24 08:58 Resp 18 10/27/24 08:58 BP 140/96 H 10/27/24 08:58 Pulse Ox 99 10/27/24 08:58 O2 Del Method Room Air 10/27/24 08:58 Course Vital Signs Vital signs: Vital Signs Temperature 98.2 F 10/27/24 08:58 Pulse Rate 80 10/27/24 08:58 Respiratory Rate 18 10/27/24 08:58 Blood Pressure 140/96 H 10/27/24 08:58 Pulse Oximetry 99 10/27/24 08:58 Oxygen Delivery Method Room Air 10/27/24 08:58 Temperature 98.2 F 10/27/24 08:58 Pulse Rate 80 10/27/24 08:58 Respiratory Rate 18 10/27/24 08:58 Blood Pressure 140/96 H 10/27/24 08:58 Pulse Oximetry 99 10/27/24 08:58 Oxygen Delivery Method Room Air 10/27/24 08:58 MDM - Female Genitourinary MDM Narrative Medical decision making narrative: The patient CBC and chemistry showed no acute significant pathology hCG level was 10 And her blood type group is O+ I did explain to her right now the low hCG level would not help us to evaluate for ectopic , I explained to her that this could have been an early or early loss and either way the patient have to follow-up with her OPERATIONS ANALYST doctor on Tuesday and she was given a test order for that she is a quantitative on Tuesday. The patient was instructed regarding the pain that we also need to rule ovarian torsion in case the pain in the left lower quadrant happens again she have to come back to the ER to be evaluated with an ultrasound. The patient understand in case of any increasing bleeding or any increasing abdominal pain the patient will come back to the ER The patient will follow-up with her OPERATIONS ANALYST Dr. Queen on Tuesday and she will come to the hospital to get a hCG quantitative as well Lab Data Labs: Lab Results 10/27/24 10/27/24 Range/Units 09:10 09:14 WBC 8.4 (4.0-11.0) 10^3/uL RBC 4.17 L (4.20-5.40) 10^6/uL Hgb 13.3 (12.0-16.0) g/dL Hct 37.1 (36.0-48.0) % MCV 89.0 (81.0-99.0) fL MCH 31.9 (26.7-34.0) pg MCHC 35.8 H (29.9-35.2) g/dL RDW 13.1 (11.0-15.0) % Plt Count 237 (150-450) 10^3/uL MPV 10.0 (9.5-13.5) fL Neut % (Auto) 52.4 (43.0-75.0) % Lymph % (Auto) 37.4 (20.5-60.0) % [place] % (Auto) 7.9 (1.7-12.0) % Eos % (Auto) 1.7 (0.9-7.0) % Baso % (Auto) 0.4 (0.2-2.0) % Neut # (Auto) 4.4 (1.4-6.5) 10^3/uL Lymph # (Auto) 3.1 (1.2-3.8) 10^3/uL [place] # (Auto) 0.7 (0.3-0.8) 10^3/uL Eos # (Auto) 0.1 (0.0-0.7) 10^3/uL Baso # (Auto) 0.0 (0.0-0.1) 10^3/uL Abs Immat Gran (auto) 0.02 (0.00-0.03) 10^3/uL Imm/Tot Granulo (auto) 0.2 (0.0-0.5) % Sodium 139 (136-145) mmol/L Potassium 4.3 (3.5-5.1) mmol/L Chloride 105 (98-107) mmol/L Carbon Dioxide 28.7 (21.0-32.0) mmol/L Anion Gap 9.6 BUN 11.0 (7.0-18.0) mg/dL Creatinine 0.66 (0.55-1.02) mg/dL Est GFR ( Amer) >60 (>=60 mL/min/1.73m^2) Est GFR (Non-Af Amer) >60 (>=60 mL/min/1.73m^2) BUN/Creatinine Ratio 16.7 Glucose 97 (74-106) mg/dL Calcium 8.9 (8.5-10.1) mg/dL Total Bilirubin 1.1 H (0.2-1.0) mg/dL AST 19 (15-37) U/L ALT 41 (14-59) U/L Alkaline Phosphatase 83 (46-116) U/L Total Protein 7.5 (6.4-8.2) g/dL Albumin 3.8 (3.4-5.0) g/dL Globulin 3.7 g/dL Albumin/Globulin Ratio 1.0 HCG, Quant 10 mIU/mL Urine Color Lt. yellow (YELLOW) Urine Clarity Clear (CLEAR) Urine pH 6.5 (5.0-9.0) Ur Specific [place] 1.025 (1.005-1.025) Urine Protein Negative (NEG/TRACE) mg/dL Urine Glucose (UA) Negative (NEGATIVE) mg/dL Urine Ketones Negative (NEGATIVE) mg/dL Urine Occult Blood Small A (NEGATIVE) Urine Nitrite Negative (NEGATIVE) Urine Bilirubin Negative (NEGATIVE) Urine Urobilinogen 1.0 (0.2-1.0) EU/dL Ur Leukocyte Esterase Negative (NEGATIVE) Urine RBC 2-5 A (0-2) #/HPF Urine WBC 0-2 A (NONE SEEN) #/HPF Ur Squamous Epith Cells Moderate A (NONE/RARE) #/LPF Urine Crystals None seen (None Seen) #/HPF Urine Bacteria Trace A (NONE SEEN) #/HPF Urine Casts None seen (NONE SEEN) #/LPF Urine Mucus Trace A (NONE SEEN) Ur Culture Indicated? No Urine HCG, Qual Positive A (NEGATIVE) Blood Type O Positive Antibody Screen Negative Discharge Plan Discharge Chief Complaint: Urogenital-Female Clinical Impression: Hemorrhage in early Patient Disposition: Home, Self-Care Time of Disposition Decision: 10:10 Condition: Good Print Language: Montenegrin Instructions: Threatened Miscarriage (ED) Referrals: Sarwat Queen DO [Physician, OPERATIONS ANALYST] - 10/29/24 Referral Note: please call to make appointment with Dr QUEEN,and do the blood test on Tuesday10/29/2024 Joanne Benz GASOLINE FINISHER [Primary Care Provider, Family Practice] - 1 week Discharge Date/Time: 10/27/24 10:18
[2024-10-27 10:21] LABS: HCG Qualitative Urine* POSITIVE (NEGATIVE)
== END 2024-10-27 10:18 | disposition home or self-care (01) ==
PROVIDERS: Emergency Provider Emergency Medicine; PCP Nurse Practitioner
DX: O20.9 Hemorrhage in early pregnancy, unspecified (principal); R10.2 Pelvic and perineal pain
CPT/HCPCS: 36415; 80053; 81001; 84702; 84703; 85025; 86850; 86900; 86901; 99284

== ENCOUNTER 2025-01-15 16:40 | Outpatient (OUT) | payer OTHER, SELFPAY ==
--- OUTSIDE RECORDS SUMMARY | 2025-01-15 16:48 | XMS_ITS | CCD ---
Author Organization [facility] Care Team Providers Care Supervisor Slashing Department Name Role Phone AICHHOLZ, PHONE REPRESENTATIVE JOANNE Attending Unavailable AICHHOLZ, PHONE REPRESENTATIVE JOANNE Consulting Unavailable AICHHOLZ, PHONE REPRESENTATIVE JOANNE Primary Care Unavailable AICHHOLZ, PHONE REPRESENTATIVE JOANNE Admitting Unavailable ANGIE, DR ANA LAURA Salgado Consulting Unavailable BRET ., DR BLACK Admitting Unavailable AICHHOLZ, PHONE REPRESENTATIVE JOANNE Primary Care Unavailable BRET ., DR BLACK Attending Unavailable BRET ., DR BLACK Consulting Unavailable AICHHOLZ, PHONE REPRESENTATIVE JOANNE Primary Care Unavailable BRET ., DR BLACK Admitting Unavailable BRET ., DR BLACK Attending Unavailable BRET ., DR BLACK Consulting Unavailable GIUSEPPE, DR MARCIA Rabago Admitting Unavailable WEST, DR MARCIA Rabago Attending Unavailable WEST, DR MARCIA Rabago Consulting Unavailable AICHHOLZ, PHONE REPRESENTATIVE JOANNE Primary Care Unavailable AICHHOLZ, PHONE REPRESENTATIVE JOANNE Primary Care Unavailable AICHHOLZ, PHONE REPRESENTATIVE JOANNE Admitting Unavailable AICHHOLZ, PHONE REPRESENTATIVE JOANNE Attending Unavailable AICHHOLZ, PHONE REPRESENTATIVE JOANNE Attending Unavailable AICHHOLZ, PHONE REPRESENTATIVE JOANNE Consulting Unavailable AICHHOLZ, PHONE REPRESENTATIVE JOANNE Primary Care Unavailable AICHHOLZ, PHONE REPRESENTATIVE JOANNE Admitting Unavailable ERA .DR TROY Admitting Unavailable AICHHOLZ, PHONE REPRESENTATIVE JOANNE Primary Care Unavailable GIRARD ., DR TROY Lopez Attending Unavailable GIRARD ., DR TROY Lopez Consulting Unavailable AICHHOLZ, PHONE REPRESENTATIVE JOANNE Primary Care Unavailable VILMA MORENO Consulting Unavailable ERA ., DR TROY Lopez Admitting Unavailable GIRARD ., DR TROY Lopez Attending Unavailable LAKSHMIPATHY ., NARENDRANVIRGINIA Consulting Naima vailable AICHHOLZ, PHONE REPRESENTATIVE JAONNE Primary Care Unavailable GIRARD ., DR TROY Lopez Admitting Unavailable GIRARD ., DR TROY Lopez Attending Unavailable Angel Leon MD Primary Care Provider Aichholz SUPERVISOR COATING, Joanne Unavailable Provider, None Primary Care Unavailable Angel Leon MD Primary Care Provider Demar BRISCOE, Joanne Unavailable Medications Current Medications MedicationDrug Class(es)DatesSig (Normalized)Sig (Original) MV-Min-Fe Fum-FA-DHA ( 1 PO) (1 source) MV-Min-Fe Fum-FA-DHA ( 1 PO) Take by mouth Active Completed/Discontinued Medications MedicationDrug Class(es)DatesSig (Normalized)Sig (Original)24 hr metFORMIN hydrochloride 500 mg extended release oral tablet (2 sources)BiguanideStart: 08-03-2023 End: 54-47-3312wqma 1 tablet by mouth every twenty-four hours at mealtime metFORMIN XR (Glucophage-XR) 500 MG 24 hr tablet Indications: Weight gain Take 1 tablet (500 mg) bymouth in the evening. Take with meals Do not crush, chew, or split. 30 tablet 11 08/03/2023 01/03/2025 Discontinued Problems Active Problems Problem ClassificationProblemDateDocumented DateEpisodic/ChronicAnxiety disorders (2 sources)Mixed anxiety and depressive disorder; Translations: [Other specified anxiety disorders]Onset: 930073-76-0740CbizfkaFqmjfvdwqo disorders (2 sources)Gastroesophageal reflux disease; Translations: [Gastro-esophageal reflux disease without esophagitis]Onset: 807666-32-8476KkgofbwSwiojlwap disorders (1 source)Missed period; Translations: [Irregular menstruation, unspecified] 89-41-3711QjnlotxWbpfg endocrine disorders (2 sources)Polycystic ovary; Translations: [Polycystic ovarian syndrome]Onset: 253891-43-1949AszlafhYcfcp nutritional; endocrine; and metabolic disorders (2 sources)Obese class I; Translations: [Obesity, unspecified]Onset: 10-27-2022 58-25-8900AtfguiiAghwu and delivery including normal (2 sources); Translations: [Encounter for supervision of normal , unspecified, unspecified trimester]88-32-5454ToioxjosTvpeehtrjnt; intervertebral disc disorders; other back problems (5 sources)Spondylosis without myelopathy or radiculopathy, lumbar region; Translations: [SPONDYLS W/O MYELO-/RADICULOP LUMB]Onset: 64-59-0479Xglemgf Spondylosis; intervertebral disc disorders; other back problems (5 sources)Muscle spasm of back; Translations: [MUSCLE SPASM OF BACK]Onset: 14-10-8135WlekamafHlmmultnrxsj (4 sources)LOW BACK PAIN, UNSPECIFIED; Translations: [LOW BACK PAIN, UNSPECIFIED]Onset: 01-27-2022 Past or Other Problems Problem ClassificationProblemDateDocumented DateEpisodic/ChronicAbdominal pain (2 sources)Epigastric pain; Translations: [Epigastric pain]Onset: 10-27-2022 50-05-3595MldctdauIrqife of cervix (6 sources)Low grade squamous intraepithelial lesion on cytologic smear of cervix (LGSIL); Translations: [Cervicovaginal cytology: Low grade squamous intraepithelial lesion]Onset: 31-67-5616AajulgwxDxxqlwozcbgzt and screening for infectious disease (1 source)Encounter for screening for human papillomavirus (HPV); Translations: [ENC SCREENING HUMAN PAPILLOMAVIRUS]Onset: 27-94-8679UvmvyhukQdlpaeayprvm breast conditions (2 sources)Pain of breast; Translations: [Mastodynia]Onset: 327095-98-3042 EpisodicOther connective tissue disease (1 source)Abnormal posture; Translations: [ABNORMAL POSTURE]Onset: 12-08-2021 EpisodicOther female genital disorders (2 sources)Dysplasia of cervix; Translations: [Dysplasia of cervix uteri, unspecified]Onset: 906303-05-2900EkxhrphyFslks non-traumatic joint disorders (1 source)Pain in right knee; Translations: [PAIN IN RIGHT KNEE]Onset: 38-08-0649FetrwbsiZemwf nutritional; endocrine; and metabolic disorders (2 sources)Abnormal weight gain; Translations: [Abnormal weight gain]Onset: 500266-13-2679QwktepzcKbnqi screening for suspected conditions (not mental disorders or infectious disease) (7 sources)Encounter for screening for malignant neoplasm of cervix; Translations: [Abnormal cervical Papanicolaou smear]Onset: 43-65-9820Ncgunued Other skin disorders (2 sources)Acne; Translations: [Acne, unspecified]Onset: 142901-88-2003 EpisodicUnclassified (1 source)LOW BACK PAIN, UNSPECIFIED; Translations: [LOW BACK PAIN, UNSPECIFIED] Onset: 01-14-2022 Results Test NameValueInterpretationReference RangeFacilityHCG ( test) Ql (U)on 69-78-2820Jguolgoxcsbzcx and review of laboratory resultsAbnormalNOMS Healthcare Preg Test, UrPositiveNegativeNOMS HealthcareNOMS HealthcareUS OB TRANSVAGINALon 43-23-0347FJ OB TRANSVAGINALFINDINGS: A single intrauterine gestational sac is present. No subchorionic hemorrhage. A single pole is present. Normal heart rate at157 beats per minute. Yolk sac also is seen. Current sonographic age is 7 weeks and 3 days based on the crown-rump length measurement of 1.0 cm. Based on this age,current estimated date of delivery is August 19, 2025 No pelvic fluid or adnexal mass present. Cervical length is 3.7 cm. IMPRESSION: Findings consistent with a live intrauterine gestation, current sonographic age of 7 weeks and 3 days resulting in an estimated date of delivery of August 19, 2025. TRANSCRIBED BY: ELECTRONICALLY SIGNED BY: Moises FritzNot AvailableComment on above:Order Comment: US OB TRANSVAGINAL No LMP recorded.Urinalysis macro (dipstick) panel (U)on 90-07-8581Zmvsrjvty, UA NegativeNegative - 4(70) +++ mg/dLNOMS HealthcareBlood, UANegativeNegative - 50 Akshat/mcLNOMS HealthcareClarity, UAClearNOMS HealthcareColor, UAYellowNOMS HealthcareGlucose, UANegativeNegative - 2000(110) ++++ mg/dLNOMS Healthcare Interpretation and review of laboratory resultsNormalNOMS HealthcareKetones, UA NegativeNegative - 160(16) ++++ mg/dLNOMS HealthcareLeukocytes, UANegative Negative - 500+++ Brittany/mcLNOMS HealthcareNitrite, UANegativeNegative - Positive NOMS HealthcarepH, UA6.05 - 9NOMS HealthcareProtein, UANegativeNegative - 2000(20) ++++ mg/dLNOMS HealthcareSpec Grav, UA1.0251 - 1.03N[facility] Urobilinogen, UA0.20.2 - 12 mg/dLNOWright Memorial HospitalNOUT HealthcareRelease of Informationon 52-69-4996Jhpgrvl of Information [id number]#1.00OTGTIFFNoParkview Health [facility] Standardon 36-95-8660mDYE Non AA>60Invalid Interpretation [facility] Comment on above:Performed By: #### [id number], 3751984, 2335985, [id number], 0910355, 1207690, [id number] #### [facility] (DEFAULT) [address] [place] [address] 84881iOXP AA>60Invalid Interpretation [facility] Comment on above:Performed By: #### [id number], 6954112, 0094706, 8129184942, 5009225, 3524242, 1359246821 #### [facility] (DEFAULT) [address] [place] [address] 94466Xuzlcvz/Globulin [Mass ratio]1.1 {ratio}Low1.4-2.6[facility] HospitalComment on above:Performed By: #### 1289924, 2346904, 7512153, 0328253343, 9627585, 1442182, 7668077486 #### [facility] (DEFAULT) [address] [place] [address] 83820Tbpjr gap [Moles/Vol]13.2 mmol/LNormal5.0-19.0[facility] HospitalComment on above:Performed By: #### 0576013, 7196840, 1620815, 1859384630, 9736577, 3007307, [id number] #### [facility] (DEFAULT) [address] [place] [address] 52689Foamzmmx (S) [Mass/Vol]3.3 g/dLNormal1.5-4.3Magrwvumedicine [facility] HospitalComment on above:Performed By: #### 1264089, 3031229, 5973833, 9424107602, 3144765, 3624895, 1059754013 #### [facility] (DEFAULT) [address] [place] [address] 39400Wtmihfziew210 mOsm/LInvalid Interpretation CodeAcmc Healthcare System Glenbeigh HospitalComment on above:Performed By: #### 5108877, 4330584, 4131181, 9879078850, 4595429, 3477902, 6880354665 #### [facility] (DEFAULT) [address] [place] [address] 28770Iahh nitrogen/Creatinine [Mass ratio]17.1 mg/mgHigh 4.6-16.2[facility] HospitalComment on above:Performed By: #### 5166262, 4931790, 1452860, 3300482613, 1876533, 9675879, 9186891671 #### [facility] (DEFAULT) [address] [place] [address] 64808Pxamoif [Mass/Vol]3.9 g/dLNormal3.5-5.0[facility] Comment on above:Performed By: #### 0151350, 2309759, 4174401, 2064197972, 0712438, 9661394, 9786018441 #### [facility] (DEFAULT) [address] [place] [address] 04022Npb Phos61 IU/WCmfzyt29-80Yldchkjm HospitalComment on above:Performed By: #### 8965526, 0924850, 2597625, 3667794193, 6641551, 3559805, 3089446531 #### [facility] (DEFAULT) [address] [place] [address] 22103IGY [Catalytic activity/Vol]20.0 U/UIlxipc85.0-54.0 [facility] HospitalComment on above:Performed By: #### 5613561, 7713970, 1907163, 5377094225, 0668748, 6195771, 0005032554 #### [facility] (DEFAULT) [address] [place] [address] 71822CST [Catalytic activity/Vol]20 U/FTvihag33-17Layvhzla HospitalComment on above:Performed By: #### 3130121, 5634262, 8762893, 1004553754, 2951274, 2124542, 4560027519 #### [facility] (DEFAULT) [address] [place] [address] 91817Ccpc Total1.3 mg/dLHigh0.3-1.2[facility] HospitalComment on above:Performed By: #### 1511038, 3073710, 5847210, 0584921197, 0233625, 2182392, 6980036008 #### [facility] (DEFAULT) [address] [place] [address] 87635Yliqlwi [Mass/Vol]8.8 mg/dLLow8.9-10.3[facility] Comment on above:Performed By: #### 4424227, 0738159, 4549531, 5961573305, 3858080, 7093124, 5274071987 #### [facility] (DEFAULT) [address] [place] [address] 54436Oezwekpc [Moles/Vol]104 mmol/PFjsmkg002-110Xlobmtsw HospitalComment on above:Performed By: #### 3526585, 2539030, 4206182, 0925125899, 9818947, 1420469, 9031362427 #### [facility] (DEFAULT) [address] [place] [address] 21188IC7 [Moles/Vol]22 mmol/VDvhigb27-86Ofwciuij Hospital Comment on above:Performed By: #### 8301762, 3337409, 1900788, 6946270210, 0539629, 6159257, 8896755458 #### [facility] (DEFAULT) [address] [place] [address] 42478Yymwimiqjo [Mass/Vol]0.70 mg/dLNormal0.60-1.30[facility] HospitalComment on above:Performed By: #### 1354550, 5024347, 6740202, 9195736439, 6034545, 7668589, 4158747832 #### [facility] (DEFAULT) [address] [place] [address] 65113Trwsslc [Mass/Vol]92.0 mg/bUTxtnbh60.0-118.0[facility] HospitalComment on above:Performed By: #### 4115604, 4681728, 3504352, 7306109724, 7060914, 0172353, 3386764404 #### [facility] (DEFAULT) [address] [place] [address] 89814Euelmbnkp [Moles/Vol]4.2 mmol/LNormal3.6-5.1[facility] HospitalComment on above:Performed By: #### 1586626, 2713110, 6253944, 0569740731, 9565074, 0957324, 3233211389 #### [facility] (DEFAULT) [address] [place] [address] 39748Yjgkilm [Mass/Vol]7.2 g/dLNormal6.5-8.1[facility] Comment on above:Performed By: #### 5474631, 4946671, 6699763, 5490757207, 2582242, 7174011, 5901036256 #### [facility] (DEFAULT) [address] [place] [address] 26296Rwiurb [Moles/Vol]135.0 mmol/BRva010.0-144.0[facility] HospitalComment on above:Performed By: #### 4599817, 3447698, 3482842, 3432498817, 1662795, 4248617, 1002339767 #### [facility] (DEFAULT) [address] [place] [address] 58488Lwbj nitrogen [Mass/Vol]12 mg/dLNormal8-26[facility] HospitalComment on above:Performed By: #### 3762490, 5724023, 4606844, 7286993745, 7749628, 0598406, 1418270772 #### [facility] (DEFAULT) [address] [place] [address] 50606XPOrd 38-51-2404Agdwr glutamyl transferase [Catalytic activity/Vol]19.0 U/LNormal7.0-50.0[facility] HospitalComment on above:Performed By: #### 9448627, 3572905, 9086667, 7913717374, 8256415, 7433001, 8811617326 #### [facility] (DEFAULT) [address] [place] [address] 90765Qwza Levelon 32-66-5712Wlwb [Mass/Vol]128.0 ug/dLNormal 28.0-170.0[facility] HospitalComment on above:Performed By: #### 4235533, 1052184, 0549427, 7819256242, 6939194, 7762189, 1688561076 #### [facility] (DEFAULT) [address] [place] [address] 89309JKKqa 09-79-5904FSU417.0 IU/HHyvgmk31.0-192.0[facility] HospitalComment on above:Performed By: #### 6662946, 9473185, 5447054, 1110352106, 8954079, 6684397, 5460983922 #### [facility] (DEFAULT) [address] [place] [address] 28861Okxlc Panel Standardon 05-61-3245Zexztcgxhnj in LDL [Mass/Vol]96 mg/dLNormal1-100[facility] HospitalComment on above:Performed By: #### 1701689, 4649140, 9233324, 9343938634, 9443946, 6966045, 4423147124 #### [facility] (DEFAULT) [address] [place] [address] 07462Hlatouhrvec.total/Cholesterol in HDL [Mass ratio]3.0 {ratio}Normal0.0-4.5[facility] HospitalComment on above:Performed By: #### 7871764, 5988682, 7017525, 8911003530, 8108762, 2739018, 4299953338 #### [facility] (DEFAULT) [address] [place] [address] 89198VEVJ.13 mg/dLNormal5-40[facility] HospitalComment on above: Performed By: #### 1949387, 4689234, 1383989, 1938574158, 7811957, 3483565, 7664876969 #### [facility] (DEFAULT) [address] [place] [address] 91072Mcndsuomlfi [Mass/Vol]161.0 mg/iEQyuisy98.0-200.0[facility] HospitalComment on above:Performed By: #### 8915872, 8719497, 1291989, 4523528057, 3071357, 4881887, 2803544741 #### [facility] (DEFAULT) [address] [place] [address] 02883Ynwgdwgqzhw in HDL [Mass/Vol]52 mg/bFSzlrps70-26Cqxkpojs HospitalComment on above:Performed By: #### 0792275, 0380149, 8000016, 4511267083, 5407470, 1882166, 6675410819 #### [facility] (DEFAULT) [address] [place] [address] 73639Upakzqstvxin [Mass/Vol]63.0 mg/dLNormal0.0-150.0[facility] HospitalComment on above:Performed By: #### 5249270, 1719957, 9370909, 4207384510, 3118903, 4289760, 5892267705 #### [facility] (DEFAULT) [address] [place] [address] 53845Kzvlbq 17-94-4469Ybkkoaxtb [Mass/Vol]3.3 mg/dLNormal 2.5-4.6[facility] HospitalComment on above:Performed By: #### 3898014, 8192521, 4776440, 8381042871, 0434255, 7012760, 4256516927 #### [facility] (DEFAULT) [address] [place] [address] 82783Oaqz Acidon 50-64-4911Cqjgf [Mass/Vol]4.3 mg/dLNormal 2.6-8.0[facility] HospitalComment on above:Performed By: #### 2757418, 3908855, 3696998, 0855010001, 9581713, 4103344, 7559466058 #### [facility] (DEFAULT) [address], [place] [address]GIJ AUTO DIFFon 66-47-0851AXHE #0.1 103/ulNormal0.0-0.1The [facility] HospitalComment on above:Performed By: #### CBC #### [facility] [address] [address] [address] Merrick AlvaBasophils/100 WBC (Bld)0.4 %Normal0.2-2.0[facility] Comment on above:Performed By: #### CBC #### [facility] [address] [address] [address] Merrick Santiago #0.2 103/ulNormal0.0-0.7The [facility] HospitalComment on above: Performed By: #### CBC #### [facility] [address] [address] [address] Merrick Rodgersosinophils/100 WBC (Bld)1.1 %Normal0.9-7.0[facility] Comment on above:Performed By: #### CBC #### [facility] [address] [address] [address] Merrick Rodgersrythrocyte distribution width (RBC) [Ratio]13.4 %Gzpxqf63.0-15.0 The [facility] HospitalComment on above:Performed By: #### CBC #### [facility] [address] [address] [address] Merrick AlvaHematocrit (Bld) [Volume fraction]38.2 %Upxrzs16.0-48.0The [facility] HospitalComment on above:Performed By: #### CBC #### [facility] [address] [address] [address] Merrick AlvaHemoglobin (Bld) [Mass/Vol]13.1 g/dCDbvbld62.0-16.0[facility] HospitalComment on above:Performed By: #### CBC #### [facility] [address] [address] [address] Merrick Estrada #0.03 10e3/ulNormal0.00-0.03The [facility] HospitalComment on above:Performed By: #### CBC #### [facility] [address] [address] [address] Merrick Estrada %0.2 %Normal0.0-0.5The [facility] HospitalComment on above: Performed By: #### CBC #### [facility] [address] [address] [address] Merrick Motley #5.6 103/ulCritically high1.2-3.8[facility] Comment on above:Performed By: #### CBC #### [facility] [address] [place] [address] Dr. Merrick Whelanhocytes/100 WBC (Bld)42.9 %Absdme03.5-60.0The [facility] HospitalComment on above:Performed By: #### CBC #### [facility] [address] [place] [address] Dr. Merrick Del Angel DIFF REQNONormalThe Flower HospitalComment on above: Performed By: #### CBC #### [facility] [address] [place] [address] Dr. Merrick Hernandez (RBC) [Entitic mass]29.6 pvCgxuex34.7-34.0The [facility] HospitalComment on above:Performed By: #### CBC #### [facility] [address] [place] [address] Dr. Merrick Ward (RBC) [Mass/Vol]34.3 g/fVIzvkur97.9-35.2The [facility] HospitalComment on above:Performed By: #### CBC #### [facility] [address] [place] [address] Dr. Merrick Ward (RBC) [Entitic vol]86.2 lYIdpvne71.0-99.0The [facility] HospitalComment on above:Performed By: #### CBC #### [facility] [address] [place] [address] Dr. Merrick Albert #0.8 103/ulNormal0.3-0.8The [facility] HospitalComment on above:Performed By: #### CBC #### [facility] [address] [place] [address] Dr. Merrick Taylorocytes/100 WBC (Bld)6.1 %Normal1.7-12.0[facility] Comment on above:Performed By: #### CBC #### [facility] [address] [place] [address] Dr. Merrick Patterson #6.4 103/ulNormal1.4-6.5The [facility] HospitalComment on above:Performed By: #### CBC #### [facility] [address] [place] [address] Dr. Merrick Annutrophils/100 WBC (Bld)49.3 %Vnmxki67.0-75.0The [facility] HospitalComment on above:Performed By: #### CBC #### [facility] [address] [place] [address] Dr. Merrick Jaureguilet mean volume (Bld) [Entitic vol]10.3 fLNormal9.5-13.5The [facility] HospitalComment on above:Performed By: #### CBC #### [facility] [address] [place] [address] Dr. Merrick AlvaPLT288 103/dzQvchnq365-933Euk [facility] HospitalComment on above: Performed By: #### CBC #### [facility] [address] [place] [address] Dr. Merrick AlvaRBC4.43 106/ulNormal4.20-5.40The [facility] HospitalComment on above:Performed By: #### CBC #### [facility] [address] [place] [address] Dr. Merrick AlvaWBC13.1 103/ulCritically high4.0-11.0The [facility] HospitalComment on above:Performed By: #### CBC #### [facility] [address] [place] [address] Dr. Merrick AlvaGLYCOHEMOGLOBIN A1Con 57-83-9556URF RECOMMENDATIONSEE BELOWNormal The Flower HospitalComment on above:Result Comment: ADA RECOMMENDED LIMIT 4.0 - 6.0 ADA THERAPEUTIC TARGET < 7.0 ACTION SUGGESTED > 7.0Performed By: #### A1C #### [facility] [address] [address] [address] Merrick AlvaGlucose [Mass/Vol]111 mg/dLNoShelby Memorial HospitalComment on above:Performed By: #### A1C #### [facility] [address] [place] [address] Dr. Merrick AlvaHbA1c (Bld) [Mass fraction]5.5 %Normal4.5-6.2The [facility] HospitalComment on above:Performed By: #### A1C #### [facility] [address] [place] [address] Dr. Merrick LeoID PROFILEon 03-21-8140HDJZ-HDL RATIO NORMSEE BELOWMercy Health – The Jewish HospitalComment on above:Result Comment: 3.3 - 4.4 LOW RISK 4.4 - 7.1 AVERAGE RISK 7.1 - 11.0 MODERATE RISK >11.0 HIGH RISKPerformed By: #### LIPID, TSH, CMP #### [facility] [address] [place] [address] Dr. Merrick Rosenesterol [Mass/Vol]153 mg/dLNormal<=200[facility] Comment on above:Performed By: #### LIPID, TSH, CMP #### [facility] [address] [address] [address] Merrick Rosenesterol in HDL [Mass/Vol]41 mg/lNQkpjql48-38Zlo [facility] HospitalComment on above:Performed By: #### LIPID, TSH, CMP #### [facility] [address] [place] [address] Dr. Merrick Rosenesterol in LDL [Mass/Vol]92.4 mg/dLMercy Health – The Jewish HospitalComment on above:Performed By: #### LIPID, TSH, CMP #### [facility] [address] [place] [address] Dr. Yilan ChangCholesterol.total/Cholesterol in HDL [Mass ratio]3.7 {ratio} NormalThe Flower HospitalComment on above:Performed By: #### LIPID, TSH, CMP #### [facility] [address] [place] [address] Dr. Merrick Trinidad NORMAL> or = 60 mg/dl - LOW CARDIOVASCULAR RISK <40 mg/dl - HIGH CARDIOVASCULAR RISKMercy Health – The Jewish HospitalComment on above:Performed By: #### LIPID, TSH, CMP #### [facility] [address] [place] [address] Dr. Merrick AlvaLDL CALC NORMALSEE BELOWMercy Health – The Jewish HospitalComment on above:Result Comment: <100 mg/dl OPTIMAL 100 - 129 mg/dl NEAR OR ABOVE OPTIMAL 130 - 159 mg/dl BORDERLINE HIGH 160 - 189 mg/dl HIGH >190 mg/dl VERY HIGH Performed By: #### LIPID, TSH, CMP #### [facility] [address] [place] [address] Dr. Merrick AlvaTriglyceride [Mass/Vol]98 mg/dLNormal<=150[facility] Comment on above:Performed By: #### LIPID, TSH, CMP #### [facility] [address] [place] [address] Dr. Merrick AlvaVLDL CALC19.6 mg/dLNoShelby Memorial HospitalComment on above: Performed By: #### LIPID, TSH, CMP #### [facility] [address] [place] [address] Dr. Merrick AlvaPROVadim 14(COMP METB)on 14-31-6278Yfjauxk [Mass/Vol]3.7 g/dLNormal 3.4-5.0[facility] HospitalComment on above:Performed By: #### LIPID, TSH, CMP #### [facility] [address] [place] [address] Dr. Merrick AlvaAlbumin/Globulin [Mass ratio]0.9 {ratio}NormalThe Flower HospitalComment on above:Performed By: #### LIPID, TSH, CMP #### [facility] [address] [place] [address] Dr. Merrick CanalesP [Catalytic activity/Vol]98 U/RYyjwwf57-527Sto Flower HospitalComment on above:Performed By: #### LIPID, TSH, CMP #### [facility] [address] [address] [address] Merrick CanalesT [Catalytic activity/Vol]37 U/UMvfftf80-21Lzg [facility] HospitalComment on above:Performed By: #### LIPID, TSH, CMP #### [facility] [address] [address] [address] Merrick Arenason gap [Moles/Vol]12.1 mmol/LNormalHighland District Hospital Comment on above:Performed By: #### LIPID, TSH, CMP #### [facility] [address] [place] [address] Dr. Merrick Linton [Catalytic activity/Vol]22 U/KFiiuxo31-48Kop [facility]lower HospitalComment on above:Performed By: #### LIPID, TSH, CMP #### [facility] [address] [place] [address] Dr. Merrick AlvaBilirubin [Mass/Vol]0.5 mg/dLNormal0.2-1.0[facility] Comment on above:Performed By: #### LIPID, TSH, CMP #### [facility] [address] [place] [address] Dr. Merrick AlvaCalcium [Mass/Vol]8.9 mg/dLNormal8.5-10.1[facility] Comment on above:Performed By: #### LIPID, TSH, CMP #### [facility] [address] [place] [address] Dr. Merrick AlvaChloride [Moles/Vol]105 mmol/WPgyevk93-526RebHighland District Hospital Comment on above:Performed By: #### LIPID, TSH, CMP #### [facility] [address] [place] [address] Dr. Merrick AlvaCO2 [Moles/Vol]27.7 mmol/PTfnghf73.0-32.0[facility] Comment on above:Performed By: #### LIPID, TSH, CMP #### [facility] [address] [address] [address] Merrick AlvaCreatinine [Mass/Vol]0.76 mg/dLNormal0.55-1.02The [facility] HospitalComment on above:Performed By: #### LIPID, TSH, CMP #### [facility] [address] [address] [address] Merrick RodgersGFR-AF GAMBIAN>60Normal>=60The [facility]lower HospitalComment on above:Performed By: #### LIPID, TSH, CMP #### [facility] [address] [address] [address] Merrick RodgersGFR-NON AF GAMBIAN>60Normal>=60The [facility] HospitalComment on above:Performed By: #### LIPID, TSH, CMP #### [facility] [address] [place] [address] Dr. Merrick AlvaGlobulin (S) [Mass/Vol]4.1 g/dLNormalThe [facility]lower HospitalComment on above:Performed By: #### LIPID, TSH, CMP #### [facility] [address] [address] [address] Merrick AlvaGlucose [Mass/Vol]87 mg/lOEllyif56-646SmeHighland District Hospital Comment on above:Performed By: #### LIPID, TSH, CMP #### [facility] [address] [address] [address] Merrick AlvaPotassium [Moles/Vol]3.8 mmol/LNormal3.5-5.1[facility] Comment on above:Performed By: #### LIPID, TSH, CMP #### [facility] [address] [address] [address] Merrick AlvaProtein [Mass/Vol]7.8 g/dLNormal6.4-8.2[facility] Comment on above:Performed By: #### LIPID, TSH, CMP #### [facility] [address] [address] [address] Merrick AlvaSodium [Moles/Vol]141 mmol/TPhupli553-593Owl [facility] Comment on above:Performed By: #### LIPID, TSH, CMP #### [facility] [address] [address] [address] Merrick Marin nitrogen [Mass/Vol]11.0 mg/dLNormal7.0-18.0The [facility] HospitalComment on above:Performed By: #### LIPID, TSH, CMP #### [facility] [address] [address] [address] Merrick Marin nitrogen/Creatinine [Mass ratio]14.5 mg/mgNormDunlap Memorial HospitalComment on above:Performed By: #### LIPID, TSH, CMP #### [facility] [address] [address] [address] Merrick Raza 53-54-1036RDZ9.453 uIU/mLNormal0.358-3.740The [facility]lower HospitalComment on above:Performed By: #### LIPID, TSH, CMP #### [facility] [address] [address] [address] Merrick Healy IG, rfx Aptima HPV, rfx 16/18,45on 05-04-2022..NormalThe [facility] HospitalComtrinity health grand [facility] hospital on above:Result Comment: Performed at: WBPerformed By: #### [id number] ####[facility] [address] [address]DrAna AlvaDIAGNOSIS:CommentAbnoHenry County Hospital on above:Result Comment: EPITHELIAL CELL ABNORMALITY. ATYPICAL SQUAMOUS CELLS OF UNDETERMINED SIGNIFICANCE (ASC-US). PREDOMINANCE OF COCCOBACILLI CONSISTENT WITH SHIFT IN VAGINAL POLLY IS PRESENT. Performed at: WBPerformed By: #### [id number] ####[facility] [address] [id number]. Sin ChangElectronically signed by: CommentMercy Health St. [facility]man [facility] on above:Result Comment: Rick Wahl MD, Pathologist Performed at: WBPerformed By: #### [id number] ####[facility] [address] [address]DrAna AlvaHPV AptimaNegativeNormal NegativeThe [facility] on above:Result Comment: This nucleic acid amplification test detects fourteen high-risk HPV types (16,18,31,33,35,39,45,51,52,56,58,59,66,68) without differentiation. Performed at: =GPerformed By: #### [id number] ####[facility] [address] [id number]. Merrick AlvaHPV Genotype ReflexComment NormalThe [facility] on above:Result Comment: Criteria not met, HPV Genotype not performed. Performed at: WBPerformed By: #### [id number] ####[address] [address]Dr. Merrick AlvaMethodology:CommentMercy Health St. [facility] on above:Result Comment: This liquid based ThinPrep(R) pap test was screened with the use of an image guided system. Performed at: WBPerformed By: #### [id number] ####[address] [address]Dr. Merrick AlvaNote:CommentMercy Health St. [facility] on above:Result Comment: The Pap smear is a screening test designed to aid in the detection of premalignant and malignant conditions of the uterine cervix. It is not a diagnostic procedure and should not be used as the sole means of detecting cervical cancer. Both false-positive and false-negative reports do occur. . Performed at: WBPerformed By: #### [id number] ####[facility] [address] [place], [place] [address]Dr. Merrick AlvaPathologist Provided ICD10 CommentMer[address] Health [address] [facility] on above:Result Comment: R87.610, R87.5 Performed at: WBPerformed By: #### [id number] ####[facility] [address] [place], [place] [address]Dr. Merrick ChangPerformed by:CommentMercy Health St. [facility] on above:Result Comment: Deya Flores, Corsets Salesperson (ASCP) Performed at: WBPerformed By: #### [id number] ####[facility] [address] [id number]. Merrick AlvaRecommendation:Comment AbnormalThe [facility]lower HospitalComtrinity health grand haven hospital on above:Result Comment: Suggest follow up as clinically appropriate. Performed at: WBPerformed By: #### [id number] ####[facility] [address] [address]Dr. Merrick AlvaSpecimen adequacy:Comment NormalThe [facility] HospitalComtrinity health grand haven hospital on above:Result Comment: Satisfactory for evaluation. Endocervical and/or squamous metaplastic cells (endocervical component) are present. Performed at: WBPerformed By: #### [id number] ####[facility] [address] [address]Dr. Merrick AlvaXR LSPINE 2_3 VIEWSon 75-93-7299OR LSPINE 2_3 VIEWSEXAMINATION: XR LSPINE 2_3 VIEWS HISTORY: Low back [...] authenticated by: ANA LAURA ADAMS Date: 2022-01-14 07:25[facility] ACOG PANEL 2: 21 to 29on 10-26-2021..NormalThe [facility]lower HospitalComment on above:Performed By: #### [id number] #### [facility] [address] [address] [address] Merrick Watkins Gdln ACOG Vxvirqe99-89VipprbOkkShelby Memorial HospitalComment on above:Performed By: #### [id number] #### [facility] [address] [address] [address] Merrick AlvaDIAGNOSIS:CommentAbOhioHealth on above: Result Comment: EPITHELIAL CELL ABNORMALITY. LOW GRADE SQUAMOUS INTRAEPITHELIAL LESION (LSIL).Performed By: #### [id number] #### [facility] [address] [place] [address] Dr. Sin ChangElectronically signed by:[facility] Comment on above:Result Comment: Fransisca Blandon MD, PathologistPerformed By: #### [id number] #### [facility] [address] [place] [address] Dr. Merrick AlvaMethodology:[facility] on above: Result Comment: This liquid based ThinPrep(R) pap test was screened with the use of an image guided system.Performed By: #### [id number] #### [facility] [address] [place] [address] Dr. Merrick AlvaNote:CommentMercy Health St. [facility] on above:Result Comment: The Pap smear is a screening test designed to aid in the detection of premalignant and malignant conditions of the uterine cervix. It is not a diagnostic procedure and should not be used as the sole means of detecting cervical cancer. Both false-positive and false-negative reports do occur. .Performed By: #### [id number] #### [facility] [address] [place] [address] Dr. Merrick AlvaPathologist Provided PSA21OqglsaiUagsejLxlElyria Memorial Hospital Comment on above:Result Comment: R87.612Performed By: #### [id number] #### [facility] [address] [place] [address] Dr. Merrick AlvaPerformed by:CommentMercy Health St. [facility] on above: Result Comment: Deandre Oden, Corsets Salesperson (ASCP)Performed By: #### [id number] #### [facility] [address] [place] [address] Dr. Merrick AlvaReflex Criteria:CommentMercy Health St. [facility] on above:Result Comment: The HPV DNA reflex criteria were not met with this specimen result therefore, no HPV testing was performed. .Performed By: #### [id number] #### [facility] [address] [place] [address] Dr. Merrick AlvaSpecimen adequacy:[facility] on above:Result Comment: Satisfactory for evaluation. Endocervical and/or squamous metaplastic cells (endocervical component) are present.Performed By: #### [id number] #### [facility] [address] [place] [address] Dr. Merrick Mireles 17-85-8561KIWZVSC0.85NormalThe [facility]ermont County HospitalComment on above:Result Comment: NORMAL RANGES: < OR = 0.9O NEGATIVE ; NO DETECTABLE IgG ANTIBODY TO RUBELLA 0.91 - 1.09 EQUIVOCAL; REPEAT TESTING SUGGESTED > OR = 1.10 POSITIVE ; INDICATES PRESENCE OF DETECTABLE IgG ANTIBODY TO RUBELLA VIRUSPerformed By: #### [id number] #### [facility] [address] [place] [address], USATB QUANTIFERON PLUSon 44-05-0717TLDUSBG MINUS NIL>10.00 NormalThe [facility]ermont County HospitalComment on above:Performed By: #### [id number] #### [facility] [address] [place] [address], USANIL0.14 IU/mLNormalThe [facility] Comment on above:Performed By: #### [id number] #### [facility] [address] [place] [address], USATB QUANTIFERONNegativeNormalNEGATIVEThe [facility] County HospitalComment on above:Result Comment: Quantiferon TB Gold Interpretation (IU/mL): NEGATIVE: M. tuberculosis infection not likely. Nil: <=8.0 TB1 Antigen minus Nil (UD6XB-AQV): <0.35 OR >=0.35; and <25% of Nil value. TB2 Antigen minus Nil (CV0UR-TRQ): <0.35 OR >=0.35; and <25% of Nil value. Mitogen minus Nil (CAITLYN-NIL): >=0.50 NOTE: Diagnosing or excluding tuberculosis disease, and assessing the probability of LTBI, requires a combination of epidemiological, historical, medical, and diagnostic findings that should be taken into account when interpreting QuantiFERON (TM)-TB Gold results. See general guidance on the diagnosis and treatment of TB disease and LTBI (https://www.cdc.gov/tb/publications/guidlines/default.htmPerformed By: #### [id number] #### [facility] [address] [place] [address], USATB1 AG0.13 IU/mLNormalThe [facility] County HospitalComment on above:Performed By: #### [id number] #### [facility] [address] [place] [address], USATB1 AG MINUS NIL-0.01 IU/mLNormalThe [facility] County HospitalComment on above:Performed By: #### [id number] #### [facility] [address] [place] [address], USATB2 AG0.19 IU/mLNormalThe [facility] County HospitalComment on above:Performed By: #### [id number] #### [facility] [address] [place] [address], USATB2 AG MINUS NIL0.05 IU/mLNormalThe [facility] County HospitalComment on above:Performed By: #### [id number] #### [facility] [address] Vital Signs Date TimeVital SignValuePerforming HjdwsruuvIzfqxyay89-09-0173 14:37-0400Body mass index (BMI) [Ratio]31.13 kg/e1XhithMary Imogene Bassett Hospital10-16-2025 14:37-0400 Body kenxcc65.91 kgMary Imogene Bassett Hospital10-16-2025 14:37-0400Diastolic blood pnmknasz69 mm[Hg][facility]10-16-2025 14:37-0400Systolic blood lqggixlq445 mm[Hg][facility] Encounters Encounter DateEncounter [facility] ProviderFacilityStart: 01-03-2025 End: 95-74-9460Yfdkds outpatient visit 5 minutesFazio Nurse [facility] Fabien OBGYNComment on above:GA: 5x7xUwcbs: 01-03-2025 End: 26-24-9557ujnpjcrjeuJlc AvailableStart: 12-11-2024 End: 41-20-5061rnzduvmzlcEvln ProviderFacility:[facility] HospitalStart: 11-09-2023 End: 00-82-2884Wmdcii Zina Benz SUPERVISOR COATING Work Phone: noms CWM FMComment on above:Wellness examination (Primary Dx)Start: 11-09-2023 End: 97-58-8131Rdmrjdw encounter Silvino Benz SUPERVISOR COATING Work Phone: [facility] Work Phone: Start: 08-02-2022 End: 91-19-0723afxwowpgcuQJM JOANNE AICHHOLZFacility:B0Eppug: 07-12-2022 End: 64-57-5088ptvpyxqsftJU MARCIA Rabago WESTFacility:T9Aibsf: 05-18-2022 End: 64-56-6868sykmwnidjsRMZ JOANNE AICHHOLZFacility:G6Kufqf: 04-26-2022 End: 84-32-2202wpngqajpkwGZY JOANNE AICHHOLZFacility:O2Qfmuz: 08-16-6947qmtsinjcrl PHONE REPRESENTATIVE JOANNE AICHHOLZFacility:O8Badxa: 02-02-2022 End: 61-68-3879dbcoozyropNV TROY GIRARD .Facility:O3Bwxia: 01-14-2022 End: 60-82-6970owylfgjvmaJKT JOANNE AICHHOLZFacility:V4Qbioj: 12-07-2021 End: 82-72-2815gvvqkxviriMKD JOANNE AICHHOLZFacility:Q6Wtrbl: 10-20-2021 End: 26-32-7912wbgoqoamjpVQ WAYNE QUEEN .Facility: Procedures DateProcedureProcedure DetailPerforming ClinicianStart: 01-03-2025 End: 91-11-8663Qgoig dip stick/tablet rgnt non-auto w/o micrscpCorey Bret DO Work Phone: Start: 66-67-0356Yvuzgvnleer observation [Identifier] in Cervix by Cyto stainJoanne Aichholz SUPERVISOR COATING Work Phone: Plan of Treatment DateCare ActivityDetailAuthorStart: 01-29-2025 End: 60-06-3549Zlvvira encounter /11/2025 10:40 AM EST Routine NOMJohn RIOS [address] [place] [id number] Wayne Queen, [address] [place] [address] NOMJohn Conn OBGYNStart: 01-03-2025 End: 70-47-6784IMU/RhABO/Rh Lab Routine Missed menses , unspecified gestational age [facility] Expected: 01/03/2025 (Approximate), Expires: 01/03/2026NOUT HealthcareComment on above:Expected: 01/03/2025 (Approximate), Expires: 01/03/2026Start: 01-03-2025 End: 50-22-8661Zyiqq type and Indirect antibody screen panel - BloodType and screen Lab Routine Missed menses , unspecified gestational age ([facility]) Expected: 01/03/2025 (Approximate), Expires: 01/03/2026[facility] Work Phone: comment on above:Expected: 01/03/2025 (Approximate), Expires: 01/03/2026Start: 01-03-2025 End: 72-21-5646Btnyj of abuse panel - Urine by Screen methodRapid drug screen, urine Lab Routine , unspecified gestational age ([facility]) Encounter for supervision of normal first in first trimester ([facility]) Expected: 01/03/2025 (Approximate), Expires: 01/03/2026[facility] HealthcareComment on above: Expected: 01/03/2025 (Approximate), Expires: 01/03/2026Start: 02-20-2024 End: 23-83-0851Ikcvrmh encounter jezuchhhh87/02/2024 2:00 PM EST Office Visit [facility] [address] [place] [address] Wayne Queen, DO [address] [place] [address] NOMS BCP OBStart: 99-77-6582Bizpwkebl vaccination Influenza Vaccine (#1)[facility]OMS HealthcareStart: 11-09-2023 End: 15-84-6006IMX W Auto Differential panel - BloodCBC and differential Lab Routine Wellness examination Expected: 11/09/2023 (Approximate), Expires: 0 11/08/2024[facility] Work Phone: Comment on above:Expected: 11/09/2023 (Approximate), Expires: 11/08/2024Start: 11-09-2023 End: 05-28-0919Bwparglmffhwi metabolic 2000 panel - Serum or PlasmaComprehensive metabolic panel Lab Routine Wellness examination Expected: 11/09/2023 (Approximate), Expires: 11/08/2024NOUT HealthcareComment on above:Expected: 11/09/2023 (Approximate), Expires: 11/08/2024Start: 11-09-2023 End: 95-41-5048Kfdqzwqjct A1c/Hemoglobin.total in BloodHemoglobin A1c Lab Routine Wellness examination Expected: 11/09/2023 (Approximate), Expires: 11/08/2024NOUT HealthcareComment on above:Expected: 11/09/2023 (Approximate), Expires: 11/08/2024Start: 11-09-2023 End: 21-47-9085Cygzf 1996 panel - Serum or PlasmaLipid panel Lab Routine Wellness examination Expected: 11/09/2023 (Approximate), Expires: 11/08/2024NOUT HealthcareComment on above:Expected: 11/09/2023 (Approximate), Expires: 11/08/2024Start: 11-09-2023 End: 22-84-1305Wtecgsacclu [Units/volume] in Serum or PlasmaTSH Lab Routine Wellness examination Expected: 11/09/2023 (Approximate), Expires: 11/08/2024NOUT HealthcareComment on above:Expected: 11/09/2023 (Approximate), Expires: 11/08/2024Start: 68-29-4855Kigeczdjv for malignant neoplasm of cervixHPV/Cotest NOMS HealthcareStart: 93-99-2733Dkgxngzrf for malignant neoplasm of cervixNOMS HealthcareBacteria identified in Urine by CultureUrine culture Microbiology Routine Missed menses Ordered: 01/03/2025[facility] HealthcareComment on above: Ordered: 01/03/2025BC W Auto Differential panel - BloodCBC and differential Lab Routine Missed menses , unspecified gestational age ([facility]) Ordered: 01/03/2025[facility] HealthcareComment on above:Ordered: 01/03/2025Hemoglobin A1c/Hemoglobin.total in BloodHemoglobin A1c Lab Routine Missed menses , unspecified gestational age ([facility]) Ordered: 01/03/2025[facility] HealthcareComment on above:Ordered: 01/03/2025Hepatitis B virus surface Ag [Presence] in Serum or Plasma by ImmunoassayHepatitis B surface antigen Lab Routine Missed menses , unspecified gestational age ([facility]) Ordered: 01/03/2025[facility] HealthcareComment on above:Ordered: 01/03/2025Hepatitis C virus Ab [Presence] in Serum or Plasma by ImmunoassayHepatitis C antibody Lab Routine Missed menses , unspecified gestational age ([facility]) Ordered: 01/03/2025[facility] HealthcareComment on above:Ordered: 01/03/2025HIV-1/HIV-2 antigen/antibody combination immunoassayHIV-1 and HIV-2 antibodies Lab Routine Missed menses , unspecified gestational age ([facility]) Ordered: 01/03/2025[facility] HealthcareComment on above:Ordered: 01/03/2025Reagin Ab [Presence] in Serum by RPRRPR Lab Routine Missed menses , unspecified gestational age ([facility]) Ordered: 01/03/2025[facility] HealthcareComment on above:Ordered: 01/03/2025 Rubella antibody, IgGRubella antibody, IgG Lab Routine Missed menses , unspecified gestational age ([facility]) Ordered: 01/03/2025[facility] HealthcareComment on above:Ordered: 01/03/2025 Payers DatePayer CategoryPayerPolicy [id number] Health InsuranceSUBURBAN [facility] & [facility] [id number] [id number] 2.0.[id number] 2.840.1.656926.3.57[id number] 2.0.1.255401.3.57[id number] 2.840.1.014553.3.57[id number] 2.0.1.902715.3.579.2.14050-28-6199Hwjxrym3110045 2.840.1.949158.3.57[id number] 2.160.1.133102.3.57[id number] 2.0.1.527946.3.579.[id number] 2.840.1.932799.3.579.[id number] 2.840.1.066756.3.579.2.778130-64-8538Rhss-[id number] [id number] [id number] 2.16.840.1.202901.3.579.2.593 Social History DateTypeDetailFacilityStart: 26-74-6140Bobeaqk smoking status NHISNever smoked tobaccoNOMS HealthcareStart: 55-24-9432Nrdnhay use and exposureSmokeless tobacco non-userNOMS HealthcareStart: 08-03-2023 End: 41-11-8899Jwsjbrmba beverage intakeCurrent drinker of alcohol (finding)NOMS HealthcareStart: 06-28-2023 End: 30-78-4571Trvstkt of Social functionNOMS HealthcareStart: 06-28-2023 End: 01-68-4572Annaggr use panelNOMS HealthcareStart: 58-17-6228Orghmia Comment Occasional alcohol useNOMS HealthcareStart: 64-33-8131Ord assigned at birthNot on fileNOMS HealthcareStart: 23-71-7917CpzjkphvjZCIQ HealthcareStart: 06-02-2022 [facility]alBlue [facility] History of Present illness Narrative 01-03-2025 Note Date & RjjtNymoZzhudkrl84-21-5015 History of Present illness Narrative* Nuha Gregorio MA - 01/03/2025 1:30 PM EDT Reason for Appointment: Patient ID: Ceci Samano is a 29 y.o. female who presents for Amenorrhea Patient presents today for a Nurse OB Intake appointment. Patient is 7w3d with a Estimated Date of Delivery: 08/19/25 OB History Para Term AB Living 3 0 2 1 SAB IAB Ectopic Multiple Live Births 2 # Outcome Date GA Lbr Enmanuel/2nd Weight Sex Type Anes PTL Lv 3 Current 2 SAB 2009 1 SAB Current Medications: has a current medication list which includes the following prescription(s): mv-min-fe fum-fa-dha. Medical History: Active Ambulatory Problems Diagnosis Date Noted Abnormal cervical Papanicolaou smear 10/27/2022 Abnormal weight gain 10/27/2022 Acne 10/27/2022 Cervical dysplasia 10/27/2022 Class 1 obesity 10/27/2022 Epigastric pain 10/27/2022 Gastroesophageal reflux disease 10/27/2022 Low grade squamous intraepithelial lesion (LGSIL) on cervicovaginal cytologic smear 10/27/2022 Mixed anxiety and depressive disorder 10/27/2022 Pain of breast 10/27/2022 Polycystic ovaries 10/27/2022 Wellness examination 11/09/2023 Resolved Ambulatory Problems Diagnosis Date Noted No Resolved Ambulatory Problems Past Medical History: Diagnosis Date Abnormal Papanicolaou smear of cervix Acute epigastric pain Anxiety and depression ASCUS of cervix with negative high risk HPV BMI 33.0-33.9,adult Breast pain, left H/O abnormal cervical Papanicolaou smear LGSIL on Pap smear of cervix PCOS (polycystic ovarian syndrome) Family History[1] Social History Tobacco Use Smoking status: Never Smokeless tobacco: Never Substance Use Topics Alcohol use: Yes Comment: Occasional alcohol use Drug use: Never Surgical History[2] Allergies[3] Vitals: Estimated body mass index is 31.13 kg/m as calculated from the following: Height as of 03/15/23: 4' 11 . Weight as of this encounter: 154 lb 2 oz. BP: 110/72 Patient's last menstrual period was 10/16/2024. Assessment/Plan Diagnoses and all orders for this visit: Missed menses - Type and screen; Future - ABO/Rh; Future - CBC and differential - Hemoglobin A1c - RPR - Rubella antibody, IgG - Hepatitis B surface antigen - Hepatitis C antibody - HIV-1 and HIV-2 antibodies - Urine culture - POCT , urine manually resulted - POCT urinalysis dipstick manually resulted , unspecified gestational age ([facility]) - Type and screen; Future - ABO/Rh; Future - CBC and differential - Hemoglobin A1c - RPR - Rubella antibody, IgG - Hepatitis B surface antigen - Hepatitis C antibody - HIV-1 and HIV-2 antibodies - Rapid drug screen, urine; Future Encounter for supervision of normal first in first trimester ([facility]) - Rapid drug screen, urine; Future Nurse Note: Follow Up: Patient is to have labs drawn at directed and return to office for initial OB appointment with provider. Patient may call office as needed with any concerns or questions. Nurse Visit Completed by: Nuha Gregorio MA [1] Family History Problem Relation Name Age of Onset Cancer Maternal Grandmother Diabetes Maternal Grandmother Hypertension Maternal Grandmother Stroke Maternal Grandmother [2] Past Surgical History: Procedure Laterality Date CERVICAL BIOPSY W/ LOOP ELECTRODE EXCISION 2019 TONSILLECTOMY 2001 [3] No Known Allergies documented [facility] Consult[facility] note 05-18-2022 Note Date & HsvmDyebWfdqkeur45-85-1813 NoteCONSULTATION PROCEDURE DATE: 05/18/2022 PROCEDURE: Left lumbar iliocostalis [...] our office by telephone in one week's time.[facility] Consultation note 02-02-2022 Note Date & [id number] NoteCONSULTATION CONSULTATION DATE: 02/02/2022 CHIEF COMPLAINT: Chronic low [...] decrease the dosage on this. She takes [id number] NSAIDs along with naproxen 500 mg on [...] The patient understands and would like to proceed.[facility] Consultation note 02-02-2022 Note Date & [id number] NoteCONSULTATION PROCEDURE DATE: 02/02/2022 PREOPERATIVE DIAGNOSIS: Lumbar paravertebral [...] complication, will be followed up in the office.[facility] Evaluation note Note Date & TypeNoteFacilityEvaluation note* Diagnosis Wellness examination- Primary documented in this encounter [facility] Evaluation note Note Date & TypeNoteFacilityEvaluation note* Diagnosis Missed menses , unspecified gestational age ([facility]) Encounter for supervision of normal first in first trimester ([facility]) documented in this encounter [facility] Summary Purpose Family History No Family History Records FoundNo Family History Records FoundNo Family History Records FoundNo Family History Records Found Advance Directives No Advanced Directives Records FoundNo Advanced Directives Records FoundNo Advanced Directives Records FoundNo Advanced Directives Records Found Additional Source Comments INFORMATION SOURCE (unrecogn ized section and content) DATE CREATED AUTHOR 12/24/2018 [facility] DATE CREATED AUTHOR AUTHOR'S ORGANIZ ATION 08/03/2022 [facility] DATE CREATED AUTHOR AUTHOR'S ORGANIZ ATION 12/28/2024 [facility] DATE CREATED AUTHOR AUTHOR'S ORGANIZ ATION 01/05/2025 [facility] [employer] Care Teams (unrecognized sec tion and content) Team MemberRelationshipSpecialtyStart DateEnd Date Angel Leon MD [address] [place] [id number] PCP - GeneralFamily Medicine11/09/23 Joanne Benz NP [address] [place] [id number] [facility]11/09/23Team MemberRelationshipSpecialtyStart DateEnd Date Angel Leon MD PCP - GeneralFaflly Medicine11/09/23 [facility] Benz [facility] Reason for Visit (unrecogniz ed section and content) ReasonCommentsAmenorrhea FOR RECORDS PERTAINING TO PATIENTS WHO ARE [...] BE BASED ON THE PRIMARY CLINICAL RECORDS. [employer] provides no warranty or guarantee of the accuracy or completeness of information in this document.
[2025-01-15 17:47] LABS: Hematocrit 36.6 % (36.0-48.0); Hemoglobin 13.1 g/dL (12.0-16.0); Immature Granulocytes Abs Auto 0.03 10^3/uL (0.00-0.03); Immature Granulocytes Pct Auto 0.2 % (0.0-0.5); Lymphocytes Absolute Auto 3.5 10^3/uL (1.2-3.8); Mean Corpuscular HGB Conc 35.8 g/dL (29.9-35.2); Mean Corpuscular Hemoglobin 31.3 pg (26.7-34.0); Mean Corpuscular Volume 87.6 fL (81.0-99.0); Platelet Count 259 10^3/uL (150-450); Red Blood Count 4.18 10^6/uL (4.20-5.40); White Blood Count 13.0 10^3/uL (4.0-11.0)
[2025-01-15 18:12] LABS: Cannabinoid Screen Urine NEGATIVE (NEGATIVE); Methamphetamines Screen Urine NEGATIVE (NEGATIVE); Tricyclic Antidepressant Urine NEGATIVE (NEGATIVE)
[2025-01-17 08:09] LABS: Rubella Antibodies, IgG <0.90 index (Immune >0.99)
[2025-01-17 12:08] LABS: Rapid Plasma Reagin, Quant Non Reactive titer (NonRea<1:1)
== END 2025-01-15 16:41 | disposition home or self-care (01) ==
PROVIDERS: PCP Nurse Practitioner; Visit Provider Obstetrics & Gynecology
DX: Z34.01 Encounter for supervision of normal first pregnancy, first trimester (principal); N92.6 Irregular menstruation, unspecified
CPT/HCPCS: 36415; 80307; 83036; 85025; 86592; 86762; 86803; 86850; 86900; 86901; 87086; 87340; 87389

== ENCOUNTER 2025-02-25 14:55 | Outpatient (REF) | payer OTHER, SELFPAY ==
--- OUTSIDE RECORDS SUMMARY | 2025-02-25 15:12 | XMS_ITS | CCD ---
Author Organization [facility] Care Team Providers Care Dynamometer Tuner Name Role Phone AICHHOLZ, SHEET CUTTING OPERATOR JOANNE Attending Unavailable AICHHOLZ, SHEET CUTTING OPERATOR JOANNE Consulting Unavailable AICHHOLZ, SHEET CUTTING OPERATOR JOANNE Primary Care Unavailable AICHHOLZ, SHEET CUTTING OPERATOR JOANNE Admitting Unavailable ANGIE, DR ANA LAURA Salgado Consulting Unavailable BRET ., DR BLACK Admitting Unavailable AICHHOLZ, SHEET CUTTING OPERATOR JOANNE Primary Care Unavailable BRET ., DR BLACK Attending Unavailable BRET ., DR BLACK Consulting Unavailable AICHHOLZ, SHEET CUTTING OPERATOR JOANNE Primary Care Unavailable BRET ., DR BLACK Admitting Unavailable BRET ., DR BLACK Attending Unavailable BRET ., DR BLACK Consulting Unavailable GIUSEPPE, DR MARCIA Rabago Admitting Unavailable GIUSEPPE, DR MARCIA Rabago Attending Unavailable GIUSEPPE, DR MARCIA Rabago Consulting Unavailable AICHHOLZ, SHEET CUTTING OPERATOR JOANNE Primary Care Unavailable AICHHOLZ, SHEET CUTTING OPERATOR JOANNE Primary Care Unavailable AICHHOLZ, SHEET CUTTING OPERATOR JOANNE Admitting Unavailable AICHHOLZ, SHEET CUTTING OPERATOR JOANNE Attending Unavailable AICHHOLZ, SHEET CUTTING OPERATOR JOANNE Attending Unavailable AICHHOLZ, SHEET CUTTING OPERATOR JOANNE Consulting Unavailable AICHHOLZ, SHEET CUTTING OPERATOR JOANNE Primary Care Unavailable AICHHOLZ, SHEET CUTTING OPERATOR JOANNE Admitting Unavailable ERA ., DR TROY Lopez Admitting Unavailable AICHHOLZ, SHEET CUTTING OPERATOR JOANNE Primary Care Unavailable GIRARD ., DR TROY Lopez Attending Unavailable GIRARD ., DR TROY Lopez Consulting Unavailable AICHHOLZ, SHEET CUTTING OPERATOR JOANNE Primary Care Unavailable VILMA MORENO Consulting Unavailable GIRARD ., DR TROY Lopez Admitting Unavailable GIRARD ., DR TROY Lopez Attending Unavailable LAKSHMIPATHY ., NARENDRANVIRGINIA Consulting Naima vailable AICHHOLZ, SHEET CUTTING OPERATOR JOANNE Primary Care Unavailable GIRARD ., DR TROY Lopez Admitting Unavailable GIRARD ., DR TROY Lopez Attending Unavailable Angel Leon MD Primary Care Provider Demar LEARNING SUPPORT TEACHER, Joanne Unavailable Provider, None Primary Care Unavailable Angel Leon MD Primary Care Provider [phone] Demar LEARNING SUPPORT TEACHER, Joanne Unavailable WAYNE QUEEN Attending Unavailable Medications Current Medications MedicationDrug Class(es)DatesSig (Normalized)Sig (Original) MV-Min-Fe Fum-FA-DHA ( 1 PO) (2 sources) MV-Min-Fe Fum-FA-DHA ( 1 PO) Take by mouth Active Completed/Discontinued Medications MedicationDrug Class(es)DatesSig (Normalized)Sig (Original)24 hr metFORMIN hydrochloride 500 mg extended release oral tablet (2 sources)BiguanideStart: 08-03-2023 End: 99-97-1965hrjo 1 tablet by mouth every twenty-four hours at mealtime metFORMIN XR (Glucophage-XR) 500 MG 24 hr tablet Indications: Weight gain Take 1 tablet (500 mg) bymouth in the evening. Take with meals Do not crush, chew, or split. 30 tablet 11 08/03/2023 01/03/2025 Discontinued Problems Active Problems Problem ClassificationProblemDateDocumented DateEpisodic/ChronicAnxiety disorders (3 sources)Mixed anxiety and depressive disorder; Translations: [Other specified anxiety disorders]Onset: 611208-68-2542PqrfjefMilztjquhu disorders (3 sources)Gastroesophageal reflux disease; Translations: [Gastro-esophageal reflux disease without esophagitis]Onset: 912573-40-2960QsglkpmNzjgwmtwz disorders (1 source)Missed period; Translations: [Irregular menstruation, unspecified] 13-32-2519KltiqwkWggax endocrine disorders (3 sources)Polycystic ovary; Translations: [Polycystic ovarian syndrome]Onset: 301798-49-0963DxwoodpMmrqy nutritional; endocrine; and metabolic disorders (3 sources)Obese class I; Translations: [Obesity, unspecified]Onset: 10-27-2022 60-65-9325LygcjcqZrpmz and delivery including normal (2 sources); Translations: [Encounter for supervision of normal , unspecified, unspecified trimester]49-47-6417BdguinwrEwxxvbzzwyt; intervertebral disc disorders; other back problems (5 sources)Spondylosis without myelopathy or radiculopathy, lumbar region; Translations: [SPONDYLS W/O MYELO-/RADICULOP LUMB]Onset: 15-51-9486Vywwyym Spondylosis; intervertebral disc disorders; other back problems (5 sources)Muscle spasm of back; Translations: [MUSCLE SPASM OF BACK]Onset: 95-50-7518GmzfhofaOwaafrooawal (4 sources)LOW BACK PAIN, UNSPECIFIED; Translations: [LOW BACK PAIN, UNSPECIFIED]Onset: 28-43-5068Tqkdilpzbfkp (1 source)OB RemindersOnset: Past or Other Problems Problem ClassificationProblemDateDocumented DateEpisodic/ChronicAbdominal pain (3 sources)Epigastric pain; Translations: [Epigastric pain]Onset: 10-27-2022 70-20-1574DtwrqxplXqfayl of cervix (7 sources)Low grade squamous intraepithelial lesion on cytologic smear of cervix (LGSIL); Translations: [Cervicovaginal cytology: Low grade squamous intraepithelial lesion]Onset: 42-24-4977PogscoydAvgedfebgsczl and screening for infectious disease (1 source)Encounter for screening for human papillomavirus (HPV); Translations: [ENC SCREENING HUMAN PAPILLOMAVIRUS]Onset: 43-55-3760IrslfdjiMxjicqrhfeya breast conditions (3 sources)Pain of breast; Translations: [Mastodynia]Onset: 080390-02-2531 EpisodicOther connective tissue disease (1 source)Abnormal posture; Translations: [ABNORMAL POSTURE]Onset: 12-08-2021 EpisodicOther female genital disorders (3 sources)Dysplasia of cervix; Translations: [Dysplasia of cervix uteri, unspecified]Onset: 341971-93-2412PoniteloIsabz non-traumatic joint disorders (1 source)Pain in right knee; Translations: [PAIN IN RIGHT KNEE]Onset: 47-94-2245ImmyzerwHhnsg nutritional; endocrine; and metabolic disorders (3 sources)Abnormal weight gain; Translations: [Abnormal weight gain]Onset: 549118-23-9332ShowyselWihvj screening for suspected conditions (not mental disorders or infectious disease) (8 sources)Encounter for screening for malignant neoplasm of cervix; Translations: [Abnormal cervical Papanicolaou smear]Onset: 22-69-5277Ybymjiey Other skin disorders (3 sources)Acne; Translations: [Acne, unspecified]Onset: EpisodicUnclassified (1 source)LOW BACK PAIN, UNSPECIFIED; Translations: [LOW BACK PAIN, UNSPECIFIED] Onset: 01-14-2022 Results Test NameValueInterpretationReference RangeFacilityBOX TESTon 06-19-2015KRH TEST SENT OUTUNITY BOXNOMS AfvekfsqdwYIM5HUQTQXPNM RpqlanplurBCR737/NOAL HealthcareCLINISYNCNOMS HealthcareHCG ( test) Ql (U)on 01-03-2025 Interpretation and review of laboratory resultsAbnormalNOMS HealthcarePreg Test, UrPositiveNegativeNOMS HealthcareNOMS HealthcareUS OB TRANSVAGINALon 01-03-2025 US OB TRANSVAGINALFINDINGS: A single intrauterine gestational sac [...] No LMP recorded.Urinalysis macro (dipstick) panel (U)on 50-63-9372Xypvhooqb, UA NegativeNegative - 4(70) +++ mg/dLNOMS HealthcareBlood, UANegativeNegative - 50 Akshat/mcLNOMS HealthcareClarity, UAClearNOMS HealthcareColor, UAYellowNOMS HealthcareGlucose, UANegativeNegative - 2000(110) ++++ mg/dLNOMS Healthcare Interpretation and review of laboratory resultsNormalNOAL HealthcareKetones, UA NegativeNegative - 160(16) ++++ mg/dLLDS HOSPITAL HealthcareLeukocytes, UANegative Negative - 500+++ Brittany/mcLNOAL HealthcareNitrite, UANegativeNegative - Positive NOMS HealthcarepH, UA6.05 - 9NOMS HealthcareProtein, UANegativeNegative - 2000(20) ++++ mg/dLLDS HOSPITAL HealthcareSpec Grav, UA1.0251 - 1.03NOAL Healthcare Urobilinogen, UA0.20.2 - 12 mg/dLNOMilwaukee County Behavioral Health Division– MilwaukeeRelease of Informationon 47-62-1305Dctrmjf of Information [id number]#1.00OTGTGuernsey Memorial Hospital Standardon 71-53-6106yWNM Non AA>60Invalid Interpretation [facility] Comment on above:Performed By: #### [id number], 5401860, 9008843, [id number], 7899225, 2485060, [id number] #### [facility] (DEFAULT) [address] [place] [address] 41421tEDZ AA>60Invalid Interpretation [facility] Comment on above:Performed By: #### 2615056, 5703820, 8742349, [id number], 5560485, 8181205, [id number] #### [facility] (DEFAULT) [address] [place] [address] 08321Cwcdvhg/Globulin [Mass ratio]1.1 {ratio}Low1.4-2.6MVan Wert County HospitalComment on above:Performed By: #### 9453590, 0976012, 0545585, [id number], 1755969, 7860384, [id number] #### [facility] (DEFAULT) [address] [place] [address] 95479Adhes gap [Moles/Vol]13.2 mmol/LNormal5.0-19.0[facility] HospitalComment on above:Performed By: #### 9260307, 6380486, 1135712, 2909239542, 3889096, 8895090, 8063978007 #### [facility] (DEFAULT) [address] [place] [address] 50804Kdgxirtq (S) [Mass/Vol]3.3 g/dLNormal1.5-4.3Mkindred hospital lima HospitalComment on above:Performed By: #### 6898125, 5090330, 3079057, 3471081959, 3907371, 5905502, [id number] #### [facility] (DEFAULT) [address] [place] [address] 01656Oopwttwnqn859 mOsm/LInvalid Interpretation CodeLicking Memorial HospitalComment on above:Performed By: #### 3512485, 3565320, 1300355, 3241488386, 0352744, 0686403, [id number] #### [facility] (DEFAULT) [address] [place] [address] 50112Jggi nitrogen/Creatinine [Mass ratio]17.1 mg/mgHigh 4.6-16.2Mkindred hospital lima HospitalComment on above:Performed By: #### 0628463, 2566279, 0296039, 2403528558, 2489273, 6045146, 0124222089 #### [facility] (DEFAULT) [address] [place] [address] 65869Alxtgfg [Mass/Vol]3.9 g/dLNormal3.5-5.0[facility] Comment on above:Performed By: #### 1444753, 8684329, 0145363, 2821319432, 5309538, 6068885, [id number] #### [facility] (DEFAULT) [address] [place] [address] 87248Dbi Phos61 IU/TCphcmp67-94Chkkprsr HospitalComment on above:Performed By: #### 7252159, 7198463, 3067185, 5197944101, 3203969, 3264554, 6229415743 #### [facility] (DEFAULT) [address] [place] [address] 88281GCO [Catalytic activity/Vol]20.0 U/BVqmgee43.0-54.0 [facility] HospitalComment on above:Performed By: #### 5416716, 6191244, 2214367, 6312955292, 5498831, 6089228, 2320392322 #### [facility] (DEFAULT) [address] [place] [address] 70066LYK [Catalytic activity/Vol]20 U/IUotoil57-90Zjkkekep HospitalComment on above:Performed By: #### 4696967, 1830215, 8837073, 0795720051, 9165190, 8260618, 2310109256 #### [facility] (DEFAULT) [address] [place] [address] 65435Vles Total1.3 mg/dLHigh0.3-1.2MVan Wert County HospitalComment on above:Performed By: #### 6559410, 4798240, 3989365, 3965076474, 4931639, 6487566, 6603699343 #### [facility] (DEFAULT) [address] [place] [address] 19532Acdjauw [Mass/Vol]8.8 mg/dLLow8.9-10.3MVan Wert County Hospital Comment on above:Performed By: #### 1380376, 9585439, 8298846, 6368430518, 3902265, 8530926, 1363303042 #### [facility] (DEFAULT) [address] [place] [address] 29828Vewmrcka [Moles/Vol]104 mmol/MUesyph244-442Bpyylbgc HospitalComment on above:Performed By: #### 2952060, 9257415, 5322369, 3213832458, 4108668, 3148807, 6441438635 #### [facility] (DEFAULT) [address] [place] [address] 61105ZX8 [Moles/Vol]22 mmol/LDfmapu42-23Mimihjpi Hospital Comment on above:Performed By: #### 7334195, 9521907, 3240051, 6466543878, 9905758, 6726335, 1914104118 #### [facility] (DEFAULT) [address] [place] [address] 20432Ofshgbfgzb [Mass/Vol]0.70 mg/dLNormal0.60-1.30[facility] HospitalComment on above:Performed By: #### 4816084, 7142651, 4428801, 8769432878, 6920811, 3438798, 8642295714 #### [facility] (DEFAULT) [address] [place] [address] 36582Aklkjuz [Mass/Vol]92.0 mg/xOAzdncn80.0-118.0[facility] HospitalComment on above:Performed By: #### 9902441, 3105848, 1060058, 0181097880, 7891540, 5243913, 0415577750 #### [facility] (DEFAULT) [address] [place] [address] 04085Vjerplwrm [Moles/Vol]4.2 mmol/LNormal3.6-5.1Mkindred hospital lima HospitalComment on above:Performed By: #### 9010873, 3891226, 7570975, 6478643946, 8564598, 2124740, 5346933885 #### [facility] (DEFAULT) [address] [place] [address] 60683Wtbvivs [Mass/Vol]7.2 g/dLNormal6.5-8.1M[facility] hospital [facility] Hospital Comment on above:Performed By: #### 5620227, 3823566, 0402187, 7670568227, 2626101, 6010280, 5175887287 #### [facility] (DEFAULT) [address] [place] [address] 41647Vlztln [Moles/Vol]135.0 mmol/RGcd918.0-144.0[facility] HospitalComment on above:Performed By: #### 7183032, 4913388, 1531234, 6096264235, 2791250, 4526998, 6177256539 #### [facility] (DEFAULT) [address] [place] [address] 98050Gybw nitrogen [Mass/Vol]12 mg/dLNormal8-26[facility] HospitalComment on above:Performed By: #### 7543273, 0326499, 0384860, 0608875217, 0060940, 8493369, 9229744583 #### [facility] (DEFAULT) [address] [place] [address] 36934ANRjc 65-30-0286Vhmuj glutamyl transferase [Catalytic activity/Vol]19.0 U/LNormal7.0-50.0[facility] HospitalComment on above:Performed By: #### 3841569, 0041374, 5777943, 5459568998, 2662834, 3097934, 1904994994 #### [facility] (DEFAULT) [address] [place] [address] 68708Owaz Levelon 90-75-2883Gfmf [Mass/Vol]128.0 ug/dLNormal 28.0-170.0[facility] HospitalComment on above:Performed By: #### 4177435, 3476993, 6152115, 4051444994, 6185738, 6802589, 2743037903 #### [facility] (DEFAULT) [address] [place] [address] 75034AWNxi 61-86-7429MHO860.0 IU/ASblctn15.0-192.0[facility] HospitalComment on above:Performed By: #### 3964596, 9979594, 3625489, 5269958701, 9323056, 4660489, 0137862297 #### [facility] (DEFAULT) [address] [place] [address] 57347Zsnab Panel Standardon 93-52-1708Okyfdfpgftv in LDL [Mass/Vol]96 mg/dLNormal1-100[facility] HospitalComment on above:Performed By: #### 9517274, 7444840, 1583776, 8199874573, 5735570, 7232838, 1931509909 #### [facility] (DEFAULT) [address] [place] [address] 80728Dxjszctsuyf.total/Cholesterol in HDL [Mass ratio]3.0 {ratio}Normal0.0-4.5[facility] HospitalComment on above:Performed By: #### 7172335, 6664921, 8461470, 2810585196, 0477460, 2815370, 6579869370 #### [facility] (DEFAULT) [address] [place] [address] 90496KKIS.13 mg/dLNormal5-40[facility] HospitalComment on above: Performed By: #### 6643994, 9482569, 0716119, 5294875664, 7276028, 3886965, 4757540269 #### [facility] (DEFAULT) [address] [place] [address] 95654Detwnhduxnt [Mass/Vol]161.0 mg/jBDalzki99.0-200.0[facility] HospitalComment on above:Performed By: #### 6365169, 0278234, 8272829, 4694423507, 8348052, 3567599, 1729802496 #### [facility] (DEFAULT) [address] [place] [address] 63498Iqbocwibvri in HDL [Mass/Vol]52 mg/eWPfcsts50-64Uaprofrb HospitalComment on above:Performed By: #### 9900912, 3426290, 7066456, 8748862642, 0699731, 9912350, 9658059350 #### [facility] (DEFAULT) [address] [place] [address] 17188Rjremclgfnyg [Mass/Vol]63.0 mg/dLNormal0.0-150.0[facility] HospitalComment on above:Performed By: #### 6101909, 5411316, 6719254, 6280327268, 9401884, 7556269, 4095352315 #### [facility] (DEFAULT) [address] [place] [address] 06568Ifrayb 40-36-9077Osnzwgkns [Mass/Vol]3.3 mg/dLNormal 2.5-4.6M[facility] HospitalComment on above:Performed By: #### 8811262, 9989244, 8366936, 1604251562, 9266220, 0159012, 8133017608 #### [facility] (DEFAULT) [address] [place], [place] [address]Vevo Acidon 32-31-0423Sdrbt [Mass/Vol]4.3 mg/dLNormal 2.6-8.0[facility] HospitalComment on above:Performed By: #### 3460250, 9193024, 7548667, 1188821880, 0871646, 8879697, 2224927297 #### [facility] (DEFAULT) [address] [place] [address] 61091YUK AUTO DIFFon 56-39-8480CLHL #0.1 103/ulNormal0.0-0.1The [facility] CenterComment on above:Performed By: #### CBC #### [facility] [address] [place] [address] Dr. Merrick AlvaBasophils/100 WBC (Bld)0.4 %Normal0.2-2.0[facility] Comment on above:Performed By: #### CBC #### [facility] [address] [place] [address] Dr. Merrick Santiago #0.2 103/ulNormal0.0-0.7The [facility] CenterComment on above: Performed By: #### CBC #### [facility] [address] [place] [address] Dr. Merrick Rodgersosinophils/100 WBC (Bld)1.1 %Normal0.9-7.0[facility] Comment on above:Performed By: #### CBC #### [facility] [address] [place] [address] Dr. Merrick Rodgersrythrocyte distribution width (RBC) [Ratio]13.4 %Jxobtp60.0-15.0 [facility] HospitalComment on above:Performed By: #### CBC #### [facility] [address] [place] [address] Dr. Merrick AlvaHematocrit (Bld) [Volume fraction]38.2 %Piqgon71.0-48.0[facility] HospitalComment on above:Performed By: #### CBC #### [facility] [address] [place] [address] Dr. Merrick AlvaHemoglobin (Bld) [Mass/Vol]13.1 g/pNQctyfw61.0-16.0The [facility] CenterComment on above:Performed By: #### CBC #### [facility] [address] [address] [address] Merrick Estrada #0.03 10e3/ulNormal0.00-0.03The [facility] CenterComment on above:Performed By: #### CBC #### [facility] [address] [place] [address] Dr. Merrick Estrada %0.2 %Normal0.0-0.5The [facility] CenterComment on above: Performed By: #### CBC #### [facility] [address] [place] [address] Dr. Merrick Motley #5.6 103/ulCritically high1.2-3.8The [facility] Comment on above:Performed By: #### CBC #### [facility] [address] [place] [address] Dr. Merrick Whelanhocytes/100 WBC (Bld)42.9 %Khppnv50.5-60.0The [facility] CenterComment on above:Performed By: #### CBC #### [facility] [address] [place] [address] Dr. Merrick IbarraUAL DIFF REQNONormalThe [facility] CenterComment on above: Performed By: #### CBC #### [facility] [address] [address] [address] Merrick Ward (RBC) [Entitic mass]29.6 isKxqpyb87.7-34.0The [facility] CenterComment on above:Performed By: #### CBC #### [facility] [address] [place] [address] Dr. Merrick Ward (RBC) [Mass/Vol]34.3 g/tBAegnwx12.9-35.2The [facility] CenterComment on above:Performed By: #### CBC #### [facility] [address] [address] [address] Merrick WardV (RBC) [Entitic vol]86.2 vMQqwthq02.0-99.0The [facility] CenterComment on above:Performed By: #### CBC #### [facility] [address] [place] [address] Dr. Merrick Albert #0.8 103/ulNormal0.3-0.8The [facility] CenterComment on above:Performed By: #### CBC #### [facility] [address] [place] [address] Dr. Merrick Taylorocytes/100 WBC (Bld)6.1 %Normal1.7-12.0The [facility] Comment on above:Performed By: #### CBC #### [facility] [address] [place] [address] Dr. Merrick Patterson #6.4 103/ulNormal1.4-6.5The [facility] CenterComment on above:Performed By: #### CBC #### [facility] [address] [place] [address] Dr. Merrick Annutrophils/100 WBC (Bld)49.3 %Ddsqqh35.0-75.0The [facility] CenterComment on above:Performed By: #### CBC #### [facility] [address] [place] [address] Dr. Merrick Jaureguilet mean volume (Bld) [Entitic vol]10.3 fLNormal9.5-13.5The [facility] CenterComment on above:Performed By: #### CBC #### [facility] [address] [place] [address] Dr. Merrick AlvaPLT288 103/qwUqfyyu556-343Eix [facility] CenterComment on above: Performed By: #### CBC #### [facility] [address] [place] [address] Dr. Merrick AlvaRBC4.43 106/ulNormal4.20-5.40The [facility] CenterComment on above:Performed By: #### CBC #### [facility] [address] [address] [address] Merrick AlvaWBC13.1 103/ulCritically high4.0-11.0The [facility] CenterComment on above:Performed By: #### CBC #### [facility] [address] [address] [address] Merrick AlvaGLYCOHEMOGLOBIN A1Con 53-08-3520GKZ RECOMMENDATIONSEE BELOWAdena Health SystemComment on above:Result Comment: ADA RECOMMENDED LIMIT 4.0 - 6.0 ADA THERAPEUTIC TARGET < 7.0 ACTION SUGGESTED > 7.0Performed By: #### A1C #### [facility] [address] [address] [address] Merrick AlvaGlucose [Mass/Vol]111 mg/dLNoCincinnati Shriners HospitalComment on above:Performed By: #### A1C #### [facility] [address] [place] [address] Dr. Merrick AlvaHbA1c (Bld) [Mass fraction]5.5 %Normal4.5-6.2The [facility] CenterComment on above:Performed By: #### A1C #### [facility] [address] [place] [address] Dr. Merrick AlvaLIPID PROFILEon 43-31-8140WPOQ-HDL RATIO NORMSEE [facility] HospitalComment on above:Result Comment: 3.3 - 4.4 LOW RISK 4.4 - 7.1 AVERAGE RISK 7.1 - 11.0 MODERATE RISK >11.0 HIGH RISKPerformed By: #### LIPID, TSH, CMP #### [facility] [address] [place] [address] Dr. Merrick AlvaCholesterol [Mass/Vol]153 mg/dLNormal<=200The [facility] Comment on above:Performed By: #### LIPID, TSH, CMP #### [facility] [address] [place] [address] Dr. Merrick AlvaCholesterol in HDL [Mass/Vol]41 mg/xMCgxueg59-16Yzg [facility] CenterComment on above:Performed By: #### LIPID, TSH, CMP #### [facility] [address] [address] [address] Merrick Rosenesterol in LDL [Mass/Vol]92.4 mg/dLBlanchard Valley Health System Bluffton HospitalComment on above:Performed By: #### LIPID, TSH, CMP #### [facility] [address] [address] [address] Merrick [place].total/Cholesterol in HDL [Mass ratio]3.7 {ratio} NormalThe [facility] Medical CenterComment on above:Performed By: #### LIPID, TSH, CMP #### [facility] [address] [address] [address] Merrick Trinidad NORMAL> or = 60 mg/dl - LOW CARDIOVASCULAR RISK <40 mg/dl - HIGH CARDIOVASCULAR RISKNoCincinnati Shriners HospitalComment on above:Performed By: #### LIPID, TSH, CMP #### [facility] [address] [address] [address] Merrick AlvaLDL CALC NORMALSEE BELOWNoCincinnati Shriners HospitalComment on above:Result Comment: <100 mg/dl OPTIMAL 100 - 129 mg/dl NEAR OR ABOVE OPTIMAL 130 - 159 mg/dl BORDERLINE HIGH 160 - 189 mg/dl HIGH >190 mg/dl VERY HIGH Performed By: #### LIPID, TSH, CMP #### [facility] [address] [address] [address] Merrick AlvaTriglyceride [Mass/Vol]98 mg/dLNormal<=150[facility] Comment on above:Performed By: #### LIPID, TSH, CMP #### [facility] [address] [place] [address] Dr. Merrick AlvaVLDL CALC19.6 mg/dLNoCincinnati Shriners HospitalComment on above: Performed By: #### LIPID, TSH, CMP #### [facility] [facility] [address] [place] [address] Dr. Merrick AlvaPROVadim 14(COMP METB)on 74-47-6120Urixbbn [Mass/Vol]3.7 g/dLNormal 3.4-5.0Green Cross HospitalComment on above:Performed By: #### LIPID, TSH, CMP #### [facility] [address] [address] [address] Merrick AlvaAlbumin/Globulin [Mass ratio]0.9 {ratio}NormalThe [facility] CenterComment on above:Performed By: #### LIPID, TSH, CMP #### [facility] [address] [address] [address] Merrick CanalesP [Catalytic activity/Vol]98 U/UQqzmjr68-789Odo [facility] CenterComment on above:Performed By: #### LIPID, TSH, CMP #### [facility] [address] [address] [address] Merrick CanalesT [Catalytic activity/Vol]37 U/GYblkhz33-18Mdn [facility] CenterComment on above:Performed By: #### LIPID, TSH, CMP #### [facility] [address] [address] [address] Merrick Arenason gap [Moles/Vol]12.1 mmol/LNormalThe [facility] Comment on above:Performed By: #### LIPID, TSH, CMP #### [facility] [address] [address] [address] Merrick AlvaAST [Catalytic activity/Vol]22 U/OLesdjd89-81Jkk [facility] CenterComment on above:Performed By: #### LIPID, TSH, CMP #### [facility] [address] [address] [address] Merrick AlvaBilirubin [Mass/Vol]0.5 mg/dLNormal0.2-1.0The [facility] Comment on above:Performed By: #### LIPID, TSH, CMP #### [facility] [address] [address] [address] Merrick AlvaCalcium [Mass/Vol]8.9 mg/dLNormal8.5-10.1The [facility] Comment on above:Performed By: #### LIPID, TSH, CMP #### [facility] [address] [address] [address] Merrick AlvaChloride [Moles/Vol]105 mmol/QLddttk61-966Seq [facility] Comment on above:Performed By: #### LIPID, TSH, CMP #### [facility] [address] [address] [address] Merrick AlvaCO2 [Moles/Vol]27.7 mmol/SFagpgk07.0-32.0The [facility] Comment on above:Performed By: #### LIPID, TSH, CMP #### [facility] [address] [place] [address] Dr. Merrick AlvaCreatinine [Mass/Vol]0.76 mg/dLNormal0.55-1.02[facility] Cross HospitalComment on above:Performed By: #### LIPID, TSH, CMP #### [facility] [address] [place] [address] Dr. Merrick RodgersGFR-AF MICRONESIAN>60Normal>=60The [facility] CenterComment on above:Performed By: #### LIPID, TSH, CMP #### [facility] [address] [place] [address] Dr. Merrick RodgersGFR-NON AF MICRONESIAN>60Normal>=60The [facility] CenterComment on above:Performed By: #### LIPID, TSH, CMP #### [facility] [address] [place] [address] Dr. Merrick AlvaGlobulin (S) [Mass/Vol]4.1 g/dLNormalThe [facility] CenterComment on above:Performed By: #### LIPID, TSH, CMP #### [facility] [address] [place] [address] Dr. Merrick AlvaGlucose [Mass/Vol]87 mg/qAQdtpdb46-224Jgf [facility] Comment on above:Performed By: #### LIPID, TSH, CMP #### [facility] [address] [place] [address] Dr. Merrick AlvaPotassium [Moles/Vol]3.8 mmol/LNormal3.5-5.1The [facility] Comment on above:Performed By: #### LIPID, TSH, CMP #### [facility] [address] [place] [address] Dr. Merrick AlvaProtein [Mass/Vol]7.8 g/dLNormal6.4-8.2The [facility] Comment on above:Performed By: #### LIPID, TSH, CMP #### [facility] [address] [address] [address] Merrick AlvaSodium [Moles/Vol]141 mmol/QTrwwcw409-866Pgz [facility] Comment on above:Performed By: #### LIPID, TSH, CMP #### [facility] [address] [address] [address] Merrick AlvaUrea nitrogen [Mass/Vol]11.0 mg/dLNormal7.0-18.0The [facility] CenterComment on above:Performed By: #### LIPID, TSH, CMP #### [facility] [address] [place] [address] Dr. Merrick Marin nitrogen/Creatinine [Mass ratio]14.5 mg/mgNoCincinnati Shriners HospitalComment on above:Performed By: #### LIPID, TSH, CMP #### [facility] [address] [place] [address] Dr. Merrick Raza 95-16-4286DEX4.453 uIU/mLNormal0.358-3.740The [facility] CenterComment on above:Performed By: #### LIPID, TSH, CMP #### [facility] [address] [place] [address] Dr. Merrick Jerryp IG, rfx Aptima HPV, rfx 16/18,45on 05-04-2022..NormalThe [facility] CenterComment on above:Result Comment: Performed at: WBPerformed By: #### [id number] ####[facility] [address] [address]Dr. Merrick AlvaDIAGNOSIS:CommentAbnoCincinnati Shriners HospitalComment on above:Result Comment: EPITHELIAL CELL ABNORMALITY. ATYPICAL SQUAMOUS CELLS OF UNDETERMINED SIGNIFICANCE (ASC-US). PREDOMINANCE OF COCCOBACILLI CONSISTENT WITH SHIFT IN VAGINAL POLLY IS PRESENT. Performed at: WBPerformed By: #### [id number] ####[facility] [address] [place], [place] [id number]. Merrick ChangElectronically signed by: JeanUniversity Hospitals Geneva Medical Center on above:Result Comment: Rick Wahl MD, Pathologist Performed at: WBPerformed By: #### [id number] ####[facility] [address] [id number]. Merrick AlvaHPV AptimaNegativeNormal NegativeThe [facility] on above:Result Comment: This nucleic acid amplification test detects fourteen high-risk HPV types (16,18,31,33,35,39,45,51,52,56,58,59,66,68) without differentiation. Performed at: =GPerformed By: #### [id number] ####[facility] [address] [place], [place] [address]Dr. Merrick AlvaHPV Genotype ReflexComment NormalThe [facility] on above:Result Comment: Criteria not met, HPV Genotype not performed. Performed at: WBPerformed By: #### [id number] ####[facility] [address] [place], [place] [address]Dr. Merrick AlvaMethodology:CommentUniversity Hospitals Geneva Medical Center on above:Result Comment: This liquid based ThinPrep(R) pap test was screened with the use of an image guided system. Performed at: WBPerformed By: #### [id number] ####[facility] [address] [place], [place] [address]Dr. Merrick AlvaNote:CommentUniversity Hospitals Geneva Medical Center on above:Result Comment: The Pap smear is a screening test designed to aid in the detection of premalignant and malignant conditions of the uterine cervix. It is not a diagnostic procedure and should not be used as the sole means of detecting cervical cancer. Both false-positive and false-negative reports do occur. . Performed at: WBPerformed By: #### [id number] ####[facility] [address] [place], [place] [address]Dr. Merrick AlvaPathologist Provided ICD10 CommentUniversity Hospitals Geneva Medical Center on above:Result Comment: R87.610, R87.5 Performed at: WBPerformed By: #### [id number] ####[facility] [address] [address]Dr. Merrick AlvaPerformed by:CommentUniversity Hospitals Geneva Medical Center on above:Result Comment: Deya Flores, Energy Sales Broker ([facility]) Performed at: WBPerformed By: #### [id number] ####[facility] [address] [address]Dr. Merrick AlvaRecommendation:Comment AbnormalThe [facility] CenterComment on above:Result Comment: Suggest follow up as clinically appropriate. Performed at: WBPerformed By: #### [id number] ####[facility] [address] [address]Dr. Merrick AlvaSpecimen adequacy:Comment NormalThe [facility] on above:Result Comment: Satisfactory for evaluation. Endocervical and/or squamous metaplastic cells (endocervical component) are present. Performed at: WBPerformed By: #### YXLAT6L ####[facility] [address] [address]Dr. Merrick AlvaXR LSPINE 2_3 VIEWSon 59-88-2037SS LSPINE 2_3 VIEWSEXAMINATION: XR LSPINE 2_3 VIEWS [...] authenticated by: ANA LAURA ADAMS Date: 2022-01-14 07:25[facility] ACOG PANEL 2: 21 to 29on 10-26-2021..NormalThe [facility] CenterComment on above:Performed By: #### [id number] #### [facility] [address] [address] [address] Merrick Watkins Gdln ACOG Zygljve03-29ZhmqwmIhoCincinnati Shriners HospitalComment on above:Performed By: #### [id number] #### [facility] [address] [place] [address] Dr. Merrick AlvaDIAGNOSIS:CommentAbUniversity Hospitals Samaritan Medical Center on above: Result Comment: EPITHELIAL CELL ABNORMALITY. LOW GRADE SQUAMOUS INTRAEPITHELIAL LESION (LSIL).Performed By: #### [id number] #### [facility] [address] [place] [address] Dr. Sin ChangElectronically signed by:[facility] Comment on above:Result Comment: Fransisca Blandon MD, PathologistPerformed By: #### [id number] #### [facility] [address] [place] [address] Dr. Merrick AlvaMethodology:CommentUniversity Hospitals Geneva Medical Center on above: Result Comment: This liquid based ThinPrep(R) pap test was screened with the use of an image guided system.Performed By: #### [id number] #### [facility] [address] [place] [address] Dr. Merrick AlvaNote:CommentUniversity Hospitals Geneva Medical Center on above:Result Comment: The Pap smear is a screening test designed to aid in the detection of premalignant and malignant conditions of the uterine cervix. It is not a diagnostic procedure and should not be used as the sole means of detecting cervical cancer. Both false-positive and false-negative reports do occur. .Performed By: #### [id number] #### [facility] [address] [place] [address] Dr. Merrick AlvaPathologist Provided FTY18SwdchziDeefhjIhhBlanchard Valley Health System Bluff[facility] Hospital Comment on above:Result Comment: R87.612Performed By: #### [id number] #### [facility] [address] [place] [address] Dr. Merrick AlvaPerformed by:[facility] on above: Result Comment: Deandre Oden, Energy Sales Broker ([employer])Performed By: #### [id number] #### [facility] [address] [place] [address] Dr. Merrick AlvaReflex Criteria:CommentNormalThe Fabien HospitalComment on above:Result Comment: The HPV DNA reflex criteria were not met with this specimen result therefore, no HPV testing was performed. .Performed By: #### [id number] #### [facility] [address] [place] [address] Dr. Merrick Galarza adequacy:CommentBlanchard Valley Health System Bluffton HospitalComuniversity of michigan health on above:Result Comment: Satisfactory for evaluation. Endocervical and/or squamous metaplastic cells (endocervical component) are present.Performed By: #### [id number] #### [facility] [address] [place] [address] Dr. Merrick Mireles 51-01-5233BAATECF4.85NoPremier Health Atrium Medical CenterComment on above:Result Comment: NORMAL RANGES: < OR = 0.9O NEGATIVE ; NO DETECTABLE IgG ANTIBODY TO RUBELLA 0.91 - 1.09 EQUIVOCAL; REPEAT TESTING SUGGESTED > OR = 1.10 POSITIVE ; INDICATES PRESENCE OF DETECTABLE IgG ANTIBODY TO RUBELLA VIRUSPerformed By: #### [id number] #### [facility] [address] [place] [address], USATB QUANTIFERON PLUSon 46-29-7402DBHORUW MINUS NIL>10.00 NormalThe [facility] - TrumbullComment on above:Performed By: #### [id number] #### [facility] [address] [place] [address], USANIL0.14 IU/mLNormalThe [facility] Comment on above:Performed By: #### [id number] #### [facility] [address] [place] [address], USATB QUANTIFERONNegativeNormalNEGATIVEThe [facility] - TrumbullComment on above:Result Comment: Quantiferon TB Gold Interpretation (IU/mL): NEGATIVE: M. tuberculosis infection not likely. Nil: <=8.0 TB1 Antigen minus Nil (JM7LL-KEO): <0.35 OR >=0.35; and <25% of Nil value. TB2 Antigen minus Nil (KW2SE-QOP): <0.35 OR >=0.35; and <25% of Nil value. Mitogen minus Nil (CAITLYN-NIL): >=0.50 NOTE: Diagnosing or excluding tuberculosis disease, and assessing the probability of LTBI, requires a combination of epidemiological, historical, medical, and diagnostic findings that should be taken into account when interpreting QuantiFERON (TM)-TB Gold results. See general guidance on the diagnosis and treatment of TB disease and LTBI (https://www.cdc.gov/tb/publications/guidlines/default.htmPerformed By: #### [id number] #### [facility] [address] [place] [address], USATB1 AG0.13 IU/mLNormalThe [facility] - TrumbullComment on above:Performed By: #### [id number] #### [facility] [address] [place] [address], USATB1 AG MINUS NIL-0.01 IU/mLNormalThe [facility] - TrumbullComment on above:Performed By: #### [id number] #### [facility] [address] [place] [address], USATB2 AG0.19 IU/mLNormalThe [facility] - TrumbullComment on above:Performed By: #### [id number] #### [facility] [address] [place] [address], USATB2 AG MINUS NIL0.05 IU/mLNormalThe [facility] - TrumbullComment on above:Performed By: #### [id number] #### [facility] [address] [place] [address], [facility] Vital Signs Date TimeVital SignValuePerforming MkqalhfxzMrvdsnyf97-73-6330 14:37-0400Body mass index (BMI) [Ratio]31.13 kg/a7EsyssUniversity of Pittsburgh Medical Center10-16-2025 14:37-0400 Body stcbma16.91 kgUniversity of Pittsburgh Medical Center10-16-2025 14:37-0400Diastolic blood xvpjryiv57 mm[Hg][facility]10-16-2025 14:37-0400Systolic blood npbohjjk840 mm[Hg]Bret ObNOMS Healthcare Encounters Encounter DateEncounter TypeCare ProviderFacilityStart: 01-29-2025 End: 73-42-7700pegdurnfiuYTOJI FAZIONot AvailableStart: 01-15-2025 End: 99-05-5986Wwttezpht Result EncounterCorey Bret DO Work Phone: noms External Department UnsolicitedStart: 01-15-2025 End: 61-46-9719Ihrfyfnmg Result EncounterCorey Bret DO Work Phone: noms External Department UnsolicitedStart: 01-03-2025 End: 78-46-3756Brmezd outpatient visit 5 minutesFazio Nurse [facility] Rufus ObLEROYMS Fabien OBGYNComment on above:GA: 4u3eIxfec: 01-03-2025 End: 76-72-9697xnrgczwcdvDPBKR FAZIONot AvailableStart: 12-11-2024 End: 86-52-1073hnuapufybdGbug ProviderFacility:[facility] HospitalStart: 11-09-2023 End: 54-35-0204Ulbqfs OnlyJoanne Benz LEARNING SUPPORT TEACHER Work Phone: noms CWM FMComment on above:Wellness examination (Primary Dx)Start: 11-09-2023 End: 38-48-7373Fxjcgvd encounter statusLisa Demar LEARNING SUPPORT TEACHER Work Phone: [facility] Work Phone: Start: 08-02-2022 End: 39-41-6292xparsoojodDAR JOANNE DEMARFacility:I3Hgdqs: 07-12-2022 End: 05-39-2729xmkpkvnstzPX MARCIA Rabago WESTFacility:Q9Jmvbe: 05-18-2022 End: 11-40-3977trpznsmwapRHT JOANNE KIRITHBERNICEZFacility:U7Dadly: 04-26-2022 End: 46-07-3287ecuqxajmzzCWQ JOANNE DEMARFacility:K6Zavyh: 88-08-3836bmzfufqqqd SHEET CUTTING OPERATOR JOANNE Darlinecility:T3Ltqgq: 02-02-2022 End: 36-90-1783grzztotlwgMZ TROY GIRARD .Facility:B9Rgoec: 01-14-2022 End: 74-36-2085dwplildbkcDPA JOANNE Darlinecility:F8Jsueh: 12-07-2021 End: 26-38-1247nzekehbcwuDKO JOANNE Darlinecility:M5Dkimk: 10-20-2021 End: 03-59-4722lgtthooyqmLK WAYNE QUEEN .Facility: Procedures DateProcedureProcedure DetailPerforming ClinicianStart: 41-24-8412FRR TESTCorey Bret DO Work Phone: Start: 01-03-2025 End: 89-32-9660Tlagy dip stick/tablet rgnt non-auto w/o micrscpCorey Bret DO Work Phone: Start: 84-99-3525Llpnuevxgon observation [Identifier] in Cervix by Cyto Rosa Benz LEARNING SUPPORT TEACHER Work Phone: Plan of Treatment DateCare ActivityDetailAuthorStart: 01-29-2025 End: 37-15-4631Lvauscz encounter esvevzzli80/11/2025 10:40 AM EST Routine [facility] MCKOYN [address] [place] [address] Wayne Queen, DO [address] [place], [place] [address] N[facility] OBGYNStart: 01-03-2025 End: 94-35-9282YQJ/RhABO/Rh Lab Routine Missed menses , unspecified gestational age ([facility]) Expected: 01/03/2025 (Approximate), Expires: 01/03/2026NOMS HealthcareComment on above:Expected: 01/03/2025 (Approximate), Expires: 01/03/2026Start: 01-03-2025 End: 43-25-1259Tshqj type and Indirect antibody screen panel - BloodType and screen Lab Routine Missed menses , unspecified gestational age ([facility]) Expected: 01/03/2025 (Approximate), Expires: 01/03/2026[facility] Work Phone: comment on above:Expected: 01/03/2025 (Approximate), Expires: 01/03/2026Start: 01-03-2025 End: 66-89-9260Bcqmk of abuse panel - Urine by Screen methodRapid drug screen, urine Lab Routine , unspecified gestational age ([facility]) Encounter for supervision of normal first in first trimester ([facility]) Expected: 01/03/2025 (Approximate), Expires: 01/03/2026NO[facility] HealthcareComment on above: Expected: 01/03/2025 (Approximate), Expires: 01/03/2026Start: 02-20-2024 End: 38-14-4055Yhqsptm encounter pigreecuw33/02/2024 2:00 PM EST Office Visit [facility] [address] [place] [id number] Wayne Queen DO [address] [place], [place] [id number] [facility] OBStart: 71-55-3424Xznjlegoo vaccination Influenza Vaccine (#1)[facility] HealthcareStart: 11-09-2023 End: 45-51-7420HSG W Auto Differential panel - BloodCBC and differential Lab Routine Wellness examination Expected: 11/09/2023 (Approximate), Expires: 0 11/08/2024[facility] Work Phone: Comment on above:Expected: 11/09/2023 (Approximate), Expires: 11/08/2024Start: 11-09-2023 End: 60-87-1933Xovqinkvlbwlv metabolic 2000 panel - Serum or PlasmaComprehensive metabolic panel Lab Routine Wellness examination Expected: 11/09/2023 (Approximate), Expires: 11/08/2024NO[facility] HealthcareComment on above:Expected: 11/09/2023 (Approximate), Expires: 11/08/2024Start: 11-09-2023 End: 89-00-3549Vdajyjgees A1c/Hemoglobin.total in BloodHemoglobin A1c Lab Routine Wellness examination Expected: 11/09/2023 (Approximate), Expires: 11/08/2024NO[facility] HealthcareComment on above:Expected: 11/09/2023 (Approximate), Expires: 11/08/2024Start: 11-09-2023 End: 66-50-6628Wwarl 1996 panel - Serum or PlasmaLipid panel Lab Routine Wellness examination Expected: 11/09/2023 (Approximate), Expires: 11/08/2024NO[facility] HealthcareComment on above:Expected: 11/09/2023 (Approximate), Expires: 11/08/2024Start: 11-09-2023 End: 43-96-2144Pccmgqseggn [Units/volume] in Serum or PlasmaTSH Lab Routine Wellness examination Expected: 11/09/2023 (Approximate), Expires: 11/08/2024NO[facility] HealthcareComment on above:Expected: 11/09/2023 (Approximate), Expires: 11/08/2024Start: 02-30-8392Zzxtgkbgs for malignant neoplasm of cervixHPV/Cotest [facility] HealthcareStart: 91-20-3427Txmatigme for malignant neoplasm of cervixNOMS HealthcareBacteria identified in Urine by CultureUrine culture Microbiology Routine Missed menses Ordered: 01/03/2025[facility] HealthcareComment on above: Ordered: 01/03/2025BC W Auto Differential panel - BloodCBC and differential Lab Routine Missed menses , unspecified gestational age ([facility]) Ordered: 01/03/2025[facility] HealthcareComment on above:Ordered: 01/03/2025Hemoglobin A1c/Hemoglobin.total in BloodHemoglobin A1c Lab Routine Missed menses , unspecified gestational age ([facility]) Ordered: 01/03/2025[facility] HealthcareComment on above:Ordered: 01/03/2025Hepatitis B virus surface Ag [Presence] in Serum or Plasma by ImmunoassayHepatitis B surface antigen Lab Routine Missed menses , unspecified gestational age ([facility]) Ordered: 01/03/2025[facility] HealthcareComment on above:Ordered: 01/03/2025Hepatitis C virus Ab [Presence] in Serum or Plasma by ImmunoassayHepatitis C antibody Lab Routine Missed menses , unspecified gestational age ([facility]) Ordered: 01/03/2025[facility] HealthcareComment on above:Ordered: 01/03/2025HIV-1/HIV-2 antigen/antibody combination immunoassayHIV-1 and HIV-2 antibodies Lab Routine Missed menses , unspecified gestational age ([facility]) Ordered: 01/03/2025[facility] HealthcareComment on above:Ordered: 01/03/2025Reagin Ab [Presence] in Serum by RPRRPR Lab Routine Missed menses , unspecified gestational age ([facility]) Ordered: 01/03/2025[facility] HealthcareComment on above:Ordered: 01/03/2025 Rubella antibody, IgGRubella antibody, IgG Lab Routine Missed menses , unspecified gestational age ([facility]) Ordered: 01/03/2025[facility] HealthcareComment on above:Ordered: 01/03/2025 Payers DatePayer CategoryPayerPolicy [id number] Health InsuranceOHIOHEALTH SHELBY HOSPITALCAL MUTUAL [id number] [id number] .[id number] .1.554275.3.5[id number] 2.16.840.1.209488.3.57[id number] 2.16.840.1.559423.3.57[id number] 2.16.840.1.586959.3.57[id number] 2.16.840.1.714745.3.57[id number] 2.16.840.1.135044.3.57[id number] 2.16.840.1.481567.3.57[id number] 2.16.840.1.906201.3.57[id number] 2.16.840.1.654309.3.57[id number] 2.16.840.1.231295.3.579.2.330312-49-5950Tvdj-vkt31152554371-25-5013Gpggmgl [id number] [id number] 2.840.1.175165.3.579.2.593 Social History DateTypeDetailFacilityStart: 73-16-3383Liuwcug smoking status NHISNever smoked tobaccoNOMS HealthcareStart: 76-29-0839Tridwdt use and exposureSmokeless tobacco non-userNOMS HealthcareStart: 08-03-2023 End: 03-34-0715Uoqvgtcfz beverage intakeCurrent drinker of alcohol (finding)[facility] HealthcareStart: 06-28-2023 End: 30-49-2883Wkrcaes of Social functionNOMS HealthcareStart: 06-28-2023 End: 42-84-1879Oqzxnke use panelLDS HOSPITAL HealthcareStart: 69-04-9179Xgdvvvn Comment Occasional alcohol useLDS HOSPITAL HealthcareStart: 03-27-2723Pwp assigned at birthNot on fileLDS HOSPITAL HealthcareStart: 99-98-0789AulkwrpqnQFXN HealthcareStart: 06-02-2022 SexFemaleNOAL Healthcare Goals DatePatient GoalDesired Activity/StatePersonal health goal History of Present illness Narrative 01-03-2025 Note Date & RrsvLmooEyxidcou41-91-7953 History of Present illness Narrative* Nuha Gregorio MA - 01/03/2025 1:30 PM EDT Reason for Appointment: Patient ID: Ceci Damon is a 29 y.o. female who presents for Amenorrhea Patient presents today for a Nurse OB Intake appointment. Patient is 7w3d with a Estimated Date of Delivery: 08/19/25 OB History Para Term AB Living 3 0 2 1 SAB IAB Ectopic Multiple Live Births 2 # Outcome Date GA Lbr Enmanuel/2nd Weight Sex Type Anes PTL Lv 3 Current 2 SAB 2008 1 SAB Current Medications: has a current [...] calculated from the following: Height as of 21: 4' 11 . Weight as of this [...] dipstick manually resulted , unspecified gestational age ([facility]HS-HCC) - Type and screen; Future - ABO/Rh; Future - CBC and differential - Hemoglobin A1c - RPR - Rubella antibody, IgG - Hepatitis B surface antigen - Hepatitis C antibody - HIV-1 and HIV-2 antibodies - Rapid drug screen, urine; Future Encounter for supervision of normal first in first trimester (HHS-HCC) - Rapid drug screen, urine; Future Nurse [...] BIOPSY W/ LOOP ELECTRODE EXCISION 2019 TONSILLECTOMY 2002 [3] No Known [facility]ies [facility]2022 Note Date & [id number] NoteCONSULTATION PROCEDURE DATE: 05/18/2022 PROCEDURE: Left lumbar [...] office by telephone in one week's time.[facility] Consultation note 02-02-2022 Note Date & [id number] NoteCONSULTATION CONSULTATION DATE: 02/02/2022 CHIEF COMPLAINT: Chronic [...] decrease the dosage on this. She takes qvbp-dox-acdkvaj NSAIDs along with naproxen 500 mg on [...] patient understands and would like to proceed.[facility] Consultation note 02-02-2022 Note Date & [id number] NoteCONSULTATION PROCEDURE DATE: 02/02/2022 PREOPERATIVE DIAGNOSIS: Lumbar [...] will be followed up in the office.[facility] Evaluation note Note Date & TypeNoteFacilityEvaluation note* Diagnosis Wellness examination- Primary documented in this encounter [facility] Evaluation note Note Date & TypeNoteFacilityEvaluation note* Diagnosis Missed menses , unspecified gestational age ([facility]) Encounter for supervision of normal first in first trimester ([facility]) documented in this encounter [facility] Summary Purpose Family History No Family History Records FoundNo Family History Records FoundNo Family History Records FoundNo Family History Records Found Advance Directives No Advanced Directives Records FoundNo Advanced Directives Records FoundNo Advanced Directives Records FoundNo Advanced Directives Records Found Additional Source Comments INFORMATION SOURCE (unrecogn ized section and content) DATE CREATED AUTHOR 12/24/2018 [facility] DATE CREATED AUTHOR AUTHOR'S ORGANIZ ATION 08/03/2022 [facility] DATE CREATED AUTHOR AUTHOR'S ORGANIZ ATION 12/28/2024 [facility] DATE CREATED AUTHOR AUTHOR'S ORGANIZ ATION 01/30/2025 [facility] EPIC Care Teams (unrecognized sec tion and content) Team MemberRelationshipSpecialtyStart DateEnd Date Angel Leon MD [address] [place] [address] PCP - Generalmily Medicine11/09/23 Joanne Benz NP [address] [place] [address] [facility]11/09/23Team MemberRelationshipSpecialtyStart DateEnd Date Angel Leon MD PCP - Generalmily Medicine11/09/23 Joanne Benz NP [facility]11/09/23Team MemberRelationshipSpecialtyStart DateEnd Date Angel Leon MD PCP - GeneralFamily Medicine11/09/23 Joanne Benz NP Nurse Practition[facility]Family [facility]/09/23 Reason for Visit (unrecogniz ed section and [...] BE BASED ON THE PRIMARY CLINICAL RECORDS. [employer] provides no warranty or guarantee of the accuracy or completeness of information in this document.
[2025-02-28 13:08] LABS: Age Gdln ACOG Testing Note (.); IGP, Aptima HPV, rfx 16/18,45 Note (.)
== END 2025-02-25 14:56 | disposition home or self-care (01) ==
LOC: LAB 14:55
PROVIDERS: PCP Nurse Practitioner; Visit Provider Physician Assistant
DX: Z01.419 Encounter for gynecological examination (general) (routine) without abnormal findings (principal)
CPT/HCPCS: 87624; 88175